=== PATIENT | female | born 1970 | race Caucasian/White ===

== ENCOUNTER 2017-05-12 12:39 | Emergency (ER) | payer OTHER | END 2017-05-12 15:12 | disposition home or self-care (01) | LOC: M ED 12:39 | DX: L50.9 Urticaria, unspecified (principal); T78.40XA Allergy, unspecified, initial encounter; F17.200 Nicotine dependence, unspecified, uncomplicated; Z79.899 Other long term (current) drug therapy; Z88.1 Allergy status to other antibiotic agents; Z88.2 Allergy status to sulfonamides | CPT/HCPCS: 99283 ==

== ENCOUNTER 2017-05-14 02:34 | Inpatient (IN) | payer OTHER ==
[2017-05-14 04:24] LABS: HEMATOCRIT 41.2 % (36.0-47.0); HEMOGLOBIN 14.1 g/dl (12.0-16.0); MEAN CORPUSCULAR HEMOGLOBIN 32.8 pg (27.0-33.0); MEAN CORPUSCULAR HGB CONC 34.2 g/dl (32.0-36.5); MEAN CORPUSCULAR VOLUME 95.8 fl (80.0-96.0); PLATELET COUNT, AUTOMATED 251 10^3/uL (150-450); RED CELL DISTRIBUTION WIDTH 12.1 % (11.5-14.5); WHITE BLOOD COUNT 10.1 10^3/uL (4.0-10.0)
[2017-05-14 04:53] LABS: CONTROL LINE HCG INT CTR LINE PRESENT; HCG, SERUM QUALITATIVE NEGATIVE (NEGATIVE)
[2017-05-14 04:58] LABS: AMPHETAMINES LEVEL URINE NEGATIVE (NEGATIVE); BARBITURATES URINE NEGATIVE (NEGATIVE); BENZODIAZEPINES URINE NEGATIVE (NEGATIVE); CANNABINOIDS URINE NEGATIVE (NEGATIVE); COCAINE METABOLITE URINE NEGATIVE (NEGATIVE); METHADONE URINE NEGATIVE (NEGATIVE); OPIATES URINE POSITIVE (NEGATIVE); PHENCYCLIDINE URINE NEGATIVE (NEGATIVE)
[2017-05-14 05:10] LABS: ACETAMINOPHEN LEVEL < 2.0 UG/ML (10.0-30.0); ALBUMIN 4.1 GM/DL (3.2-5.2); ALBUMIN/GLOBULIN RATIO 1.32 (1.00-1.93); ALKALINE PHOSPHATASE 43 U/L (45-117); ALT/SGPT 31 U/L (12-78); ANION GAP 9 MEQ/L (8-16); AST/SGOT 20 U/L (7-37); BILIRUBIN,DIRECT < 0.1 MG/DL (0.0-0.2); BILIRUBIN,TOTAL 0.2 MG/DL (0.2-1.0); BLOOD UREA NITROGEN 14 MG/DL (7-18); CALCIUM LEVEL 8.4 MG/DL (8.5-10.1); CARBON DIOXIDE LEVEL 29 MEQ/L (21-32); CHLORIDE LEVEL 107 MEQ/L (98-107); CREATININE FOR GFR 0.68 MG/DL (0.55-1.02); ETHYL ALCOHOL (ETHANOL) 0.163 % (0.000-0.010); GLOMERULAR FILTRATION RATE > 60.0 (>58); GLUCOSE, FASTING 99 MG/DL (70-100); POTASSIUM SERUM 3.2 MEQ/L (3.5-5.1); SALICYLATE LEVEL < 1.7 MG/DL (5.0-30.0); SODIUM LEVEL 145 MEQ/L (136-145); THYROID STIMULATING HORMONE 0.719 uIU/ML (0.358-3.740); TOTAL PROTEIN 7.2 GM/DL (6.4-8.2)
[2017-05-14] MEDS: POTASSIUM CHLORIDE 10 MEQ SR TABLET PO (05:26)
[2017-05-14] MEDS: AMOXICILLIN 500 MG CAP PO (05:44)
[2017-05-14] MEDS: NORCO, ANEXSIA 5/325MG TABLET (HYDROcodone/ACETAMINOPHEN) PO (05:45)
[2017-05-14] MEDS ORDERED: predniSONE 20 MG TAB PO (09:00)
[2017-05-14] MEDS ORDERED: IBUPROFEN 400 MG TAB PO (12:15)
[2017-05-14] MEDS ORDERED: MAALOX 30 ML SUSP *UDC PO (12:15)
[2017-05-14] MEDS ORDERED: traZODone 50 MG TAB PO ×2 (12:15→13:15)
[2017-05-14] MEDS ORDERED: ESCITALOPRAM OXALATE 5MG TABLET (LEXAPRO) PO (12:30)
[2017-05-14] MEDS: predniSONE 20 MG TAB PO (14:35)
[2017-05-14] MEDS: NICOTINE 21MG/24HR 1 EA TRANSDERMAL TD (14:35)
[2017-05-14] MEDS: AMOXICILLIN 250 MG CAP PO ×2 (14:35→21:53)
[2017-05-14] MEDS: FOLIC ACID 1 MG TAB PO (14:35)
[2017-05-14] MEDS: THIAMINE 100 MG TAB PO ×2 (14:35→21:53)
[2017-05-14] MEDS: MULTIVITAMINS/MINERALS THERAP 1 TAB PO (14:35)
[2017-05-14] MEDS: LORazepam 2 MG TAB PO (17:57)
[2017-05-14] MEDS: RAMELTEON 8 MG TAB (ROZEREM) PO (21:52)
[2017-05-14] MEDS: PRAZOSIN 1 MG CAP PO (21:53)
[2017-05-15] MEDS: ESCITALOPRAM OXALATE 5MG TABLET (LEXAPRO) PO (09:17)
[2017-05-15] MEDS: FOLIC ACID 1 MG TAB PO (09:17)
[2017-05-15] MEDS: predniSONE 20 MG TAB PO (09:17)
[2017-05-15] MEDS: NICOTINE 21MG/24HR 1 EA TRANSDERMAL TD (09:17)
[2017-05-15] MEDS: THIAMINE 100 MG TAB PO ×2 (09:17→20:06)
[2017-05-15] MEDS: AMOXICILLIN 250 MG CAP PO ×2 (09:17→20:05)
[2017-05-15] MEDS: MULTIVITAMINS/MINERALS THERAP 1 TAB PO (09:17)
[2017-05-15] MEDS: EUCERIN 120GM CREAM TOP (10:06)
[2017-05-15] MEDS: diphenhydrAMINE CREAM 30GM TOP (10:07)
[2017-05-15] MEDS: CETIRIZINE (ZyrTEC) 10 MG TAB PO (10:07)
[2017-05-15] MEDS: CHLORHEXIDINE ORAL RINSE 0.12%/15ML 120ML BOTTLE SSP ×3 (10:07→20:05)
[2017-05-15] MEDS: LORazepam 2 MG TAB PO (14:21)
[2017-05-15] MEDS: RAMELTEON 8 MG TAB (ROZEREM) PO (20:05)
[2017-05-15] MEDS: PRAZOSIN 1 MG CAP PO (20:05)
[2017-05-15] MEDS: traZODone 50 MG TAB PO (20:06)
[2017-05-16 07:00] LABS: HEMOGLOBIN 14.4 g/dl (12.0-16.0); MEAN CORPUSCULAR HEMOGLOBIN 32.6 pg (27.0-33.0); MEAN CORPUSCULAR HGB CONC 34.3 g/dl (32.0-36.5); PLATELET COUNT, AUTOMATED 282 10^3/uL (150-450); RED BLOOD COUNT 4.42 10^6/uL (4.00-5.40); RED CELL DISTRIBUTION WIDTH 11.9 % (11.5-14.5)
[2017-05-16 07:18] LABS: ANION GAP 7 MEQ/L (8-16); BLOOD UREA NITROGEN 20 MG/DL (7-18); CALCIUM LEVEL 9.5 MG/DL (8.5-10.1); CARBON DIOXIDE LEVEL 30 MEQ/L (21-32); CHLORIDE LEVEL 104 MEQ/L (98-107); CREATININE FOR GFR 0.74 MG/DL (0.55-1.02); GLOMERULAR FILTRATION RATE > 60.0 (>58); GLUCOSE, FASTING 90 MG/DL (70-100); POTASSIUM SERUM 3.9 MEQ/L (3.5-5.1); SODIUM LEVEL 141 MEQ/L (136-145)
[2017-05-16] MEDS: CETIRIZINE (ZyrTEC) 10 MG TAB PO (08:17)
[2017-05-16] MEDS: AMOXICILLIN 250 MG CAP PO ×2 (08:17→21:05)
[2017-05-16] MEDS: predniSONE 20 MG TAB PO (08:17)
[2017-05-16] MEDS: THIAMINE 100 MG TAB PO ×2 (08:17→21:05)
[2017-05-16] MEDS: MULTIVITAMINS/MINERALS THERAP 1 TAB PO (08:17)
[2017-05-16] MEDS: ESCITALOPRAM OXALATE 5MG TABLET (LEXAPRO) PO (08:17)
[2017-05-16] MEDS: FOLIC ACID 1 MG TAB PO (08:17)
[2017-05-16] MEDS: CHLORHEXIDINE ORAL RINSE 0.12%/15ML 120ML BOTTLE SSP ×3 (08:18→21:06)
[2017-05-16] MEDS: NICOTINE 21MG/24HR 1 EA TRANSDERMAL TD (08:18)
[2017-05-16] MEDS: EUCERIN 120GM CREAM TOP (08:21)
[2017-05-16] MEDS: MOM 30ML SUSPENSION UDC PO (09:49)
[2017-05-16] MEDS: FLUCONAZOLE 50MG TABLET PO (13:53)
[2017-05-16] MEDS: OLANZapine ORAL DISINTEGRATING TAB 5MG PO (15:40)
[2017-05-16] MEDS: RAMELTEON 8 MG TAB (ROZEREM) PO (21:05)
[2017-05-16] MEDS: traZODone 50 MG TAB PO (21:05)
[2017-05-16] MEDS: PRAZOSIN 1 MG CAP PO (21:06)
[2017-05-17] MEDS: MULTIVITAMINS/MINERALS THERAP 1 TAB PO (08:07)
[2017-05-17] MEDS: FOLIC ACID 1 MG TAB PO (08:07)
[2017-05-17] MEDS: CETIRIZINE (ZyrTEC) 10 MG TAB PO (08:07)
[2017-05-17] MEDS: AMOXICILLIN 250 MG CAP PO ×2 (08:07→21:19)
[2017-05-17] MEDS: ESCITALOPRAM OXALATE 5MG TABLET (LEXAPRO) PO (08:07)
[2017-05-17] MEDS: EUCERIN 120GM CREAM TOP (08:07)
[2017-05-17] MEDS: OLANZapine ORAL DISINTEGRATING TAB 5MG PO ×3 (08:07→21:20)
[2017-05-17] MEDS: predniSONE 20 MG TAB PO (08:07)
[2017-05-17] MEDS: NICOTINE 21MG/24HR 1 EA TRANSDERMAL TD (08:07)
[2017-05-17] MEDS: CHLORHEXIDINE ORAL RINSE 0.12%/15ML 120ML BOTTLE SSP ×3 (08:07→21:19)
[2017-05-17] MEDS ORDERED: predniSONE 10 MG TAB PO (09:00)
[2017-05-17] MEDS: MOM 30ML SUSPENSION UDC PO (17:33)
[2017-05-17] MEDS: RAMELTEON 8 MG TAB (ROZEREM) PO (21:19)
[2017-05-17] MEDS: traZODone 100 MG TAB PO (21:19)
[2017-05-17] MEDS: PRAZOSIN 1 MG CAP PO (21:19)
[2017-05-18] MEDS: AMOXICILLIN 250 MG CAP PO (08:19)
[2017-05-18] MEDS: CHLORHEXIDINE ORAL RINSE 0.12%/15ML 120ML BOTTLE SSP (08:19)
[2017-05-18] MEDS: FOLIC ACID 1 MG TAB PO (08:19)
[2017-05-18] MEDS: CETIRIZINE (ZyrTEC) 10 MG TAB PO (08:19)
[2017-05-18] MEDS: EUCERIN 120GM CREAM TOP (08:19)
[2017-05-18] MEDS: predniSONE 20 MG TAB PO (08:19)
[2017-05-18] MEDS: MULTIVITAMINS/MINERALS THERAP 1 TAB PO (08:19)
[2017-05-18] MEDS: ESCITALOPRAM OXALATE 5MG TABLET (LEXAPRO) PO (08:19)
[2017-05-18] MEDS: NICOTINE 21MG/24HR 1 EA TRANSDERMAL TD (08:23)
[2017-05-18] MEDS: INFLUENZA QUADRIVALENT PF VACCINE 0.5ML SYRINGE (90686) IM (10:47)
[2017-05-18] MEDS: MOM 30ML SUSPENSION UDC PO (12:03)
== END 2017-05-18 13:49 | disposition home or self-care (01) | DRG 754 ==
LOC: M ED 02:34 → M ED INP 09:39 → M PSY 10:40
DX: F32.9 Major depressive disorder, single episode, unspecified (principal); R45.851 Suicidal ideations; F10.10 Alcohol abuse, uncomplicated; F41.9 Anxiety disorder, unspecified; F43.10 Post-traumatic stress disorder, unspecified; F51.5 Nightmare disorder; Z91.411 Personal history of adult psychological abuse; Z88.2 Allergy status to sulfonamides; Z88.8 Allergy status to other drugs, medicaments and biological substances; F17.200 Nicotine dependence, unspecified, uncomplicated; K04.7 Periapical abscess without sinus; D72.829 Elevated white blood cell count, unspecified; E87.6 Hypokalemia

== ENCOUNTER 2017-11-13 06:55 | Emergency (ER) | payer OTHER ==
[2017-11-13] MEDS: LIDOCAINE W/EPINEPHRINE 1% 20ML VIAL SC (08:00)
[2017-11-13] MEDS: PERCOCET 5MG/325MG TAB PO (08:33)
== END 2017-11-13 09:28 | disposition home or self-care (01) ==
LOC: M ED 06:55
DX: S81.811A Laceration without foreign body, right lower leg, initial encounter (principal); Y04.8XXA Assault by other bodily force, initial encounter; Y92.099 Unspecified place in other non-institutional residence as the place of occurrence of the external cause; Y93.9 Activity, unspecified; Y99.9 Unspecified external cause status; F43.10 Post-traumatic stress disorder, unspecified; F41.9 Anxiety disorder, unspecified; F32.9 Major depressive disorder, single episode, unspecified; Z72.0 Tobacco use; Z79.899 Other long term (current) drug therapy; Z88.1 Allergy status to other antibiotic agents; Z88.2 Allergy status to sulfonamides
CPT/HCPCS: 73590

== ENCOUNTER 2018-10-20 23:11 | Emergency (ER) | payer OTHER ==
[~2018-10-20] VITALS: Ht 167.6 cm; Wt 54.5 kg
[~2018-10-20 23:11] MED LIST: ALLE180T33 PO; AMOX500C PO; AMOX500T PO; LEXA1TAB PO; MINI1CAP PO; NORC1TAB5 PO; OLAN5TAB PO; OLAN5ZYD PO; PRED20TA PO; ROZE8TAB16 PO; TRAZ-163 PO; TRAZ10TA PO
[2018-10-20 23:45] VITALS: BP 161/60
== END 2018-10-21 00:48 | disposition left against medical advice (07) ==
LOC: M ED 23:11
DX: Z53.21 Procedure and treatment not carried out due to patient leaving prior to being seen by health care provider (principal)

== ENCOUNTER 2018-10-26 20:12 | Inpatient (IN) | payer MEDICAID, OTHER ==
[~2018-10-26] VITALS: Ht 165.1 cm; Wt 56.2 kg
[2018-10-26 20:56] LABS: HEMATOCRIT 43.1 % (36.0-47.0); HEMOGLOBIN 14.7 g/dl (12.0-15.5); MEAN CORPUSCULAR HEMOGLOBIN 33.1 pg (27.0-33.0); MEAN CORPUSCULAR HGB CONC 34.1 g/dl (32.0-36.5); MEAN CORPUSCULAR VOLUME 97.1 fl (80.0-96.0); PLATELET COUNT, AUTOMATED 282 10^3/uL (150-450); RED BLOOD COUNT 4.44 10^6/uL (4.00-5.40); WHITE BLOOD COUNT 11.3 10^3/uL (4.0-10.0)
[2018-10-26 21:10] LABS: AMPHETAMINES LEVEL URINE NEGATIVE (NEGATIVE); BARBITURATES URINE NEGATIVE (NEGATIVE); BENZODIAZEPINES URINE NEGATIVE (NEGATIVE); CANNABINOIDS URINE POSITIVE (NEGATIVE); COCAINE METABOLITE URINE NEGATIVE (NEGATIVE); METHADONE URINE NEGATIVE (NEGATIVE); OPIATES URINE NEGATIVE (NEGATIVE); PHENCYCLIDINE URINE NEGATIVE (NEGATIVE)
[2018-10-26 21:22] LABS: ACETAMINOPHEN LEVEL < 2.0 UG/ML (10.0-30.0); ALBUMIN 4.2 GM/DL (3.2-5.2); ALT/SGPT 65 U/L (12-78); BILIRUBIN,DIRECT 0.1 MG/DL (0.0-0.2); BILIRUBIN,TOTAL 0.3 MG/DL (0.2-1.0); BLOOD UREA NITROGEN 17 MG/DL (7-18); CALCIUM LEVEL 8.6 MG/DL (8.5-10.1); CARBON DIOXIDE LEVEL 26 MEQ/L (21-32); CHLORIDE LEVEL 107 MEQ/L (98-107); CREATININE FOR GFR 0.75 MG/DL (0.55-1.30); GLOMERULAR FILTRATION RATE > 60.0 (>58); GLUCOSE, FASTING 107 MG/DL (70-100); POTASSIUM SERUM 4.2 MEQ/L (3.5-5.1); SALICYLATE LEVEL 1.8 MG/DL (5.0-30.0); SODIUM LEVEL 142 MEQ/L (136-145); THYROID STIMULATING HORMONE 0.782 uIU/ML (0.358-3.740); TOTAL PROTEIN 7.5 GM/DL (6.4-8.2)
[2018-10-26] MEDS: LORazepam 2 MG TAB PO PRN (22:21)
[2018-10-27] MEDS: LORazepam 2 MG TAB PO PRN ×3 (07:33→22:17)
[2018-10-27 08:06] LABS: HCG, SERUM QUALITATIVE NEGATIVE (NEGATIVE)
[2018-10-27 08:20] LABS: HCG, SERUM QUANTITATIVE < 1.0 MIU/ML
[2018-10-27] MEDS: THIAMINE 100 MG TAB PO SCH ×2 (09:00→21:26)
[2018-10-27] MEDS ORDERED: NICOTINE 14 MG/24 HR TRANSDERMAL TD PRN (13:45)
[2018-10-27] MEDS ORDERED: MAALOX 30 ML SUSP *UDC PO PRN (13:45)
[2018-10-27] MEDS: ACETAMINOPHEN TAB 650MG DOSE (2X325MG) PO PRN (14:49)
[2018-10-27 15:03] VITALS: BP 142/96
[2018-10-27 15:44] VITALS: BP 142/96
[2018-10-27] MEDS: NICOTINE 21MG/24HR 1 EA TRANSDERMAL TD SCH (16:31)
[2018-10-27 22:13] VITALS: BP 146/97
[2018-10-27] MEDS: traZODone 50 MG TAB PO PRN (22:48)
[2018-10-28 06:43] VITALS: BP 127/75
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
[2018-10-28] MEDS ORDERED: FOLIC ACID 1 MG TAB PO SCH (09:00)
[2018-10-28] MEDS ORDERED: MULTIVITAMINS/MINERALS THERAP 1 TAB PO SCH (09:00)
[2018-10-28 09:35] VITALS: BP 150/102
[2018-10-28] MEDS: LORazepam 2 MG TAB PO PRN (09:44)
[2018-10-28] MEDS: AUGMENTIN 875 MG TAB PO SCH ×2 (09:44→19:31)
[2018-10-28] MEDS: NICOTINE 21MG/24HR 1 EA TRANSDERMAL TD SCH (09:45)
[2018-10-28] MEDS: IBUPROFEN 600 MG TAB PO PRN ×2 (09:46→19:31)
[2018-10-28] MEDS: THIAMINE 100 MG TAB PO SCH (09:47)
[2018-10-28 12:12] VITALS: BP 132/90
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
[2018-10-28] MEDS ORDERED: ESCITALOPRAM OXALATE 10 MG TAB (LEXAPRO) PO ONE (14:15)
[2018-10-28 18:00] VITALS: BP 145/95
[2018-10-28] MEDS: hydrOXYzine 50 MG TAB PO PRN (20:21)
[2018-10-28] MEDS: QUEtiapine FUMARATE 50 MG TAB PO SCH (21:14)
[2018-10-29 07:07] VITALS: BP 113/69
[2018-10-29] MEDS: ESCITALOPRAM OXALATE 10 MG TAB (LEXAPRO) PO SCH (08:35)
[2018-10-29] MEDS: AUGMENTIN 875 MG TAB PO SCH ×2 (08:35→21:26)
[2018-10-29] MEDS: IBUPROFEN 600 MG TAB PO PRN ×2 (08:36→19:56)
[2018-10-29] MEDS: NICOTINE 21MG/24HR 1 EA TRANSDERMAL TD SCH (08:38)
--- NOTE | 2018-10-29 09:18 | IPNPDOC ---
Text Note Date of Service The patient was seen on 10/29/18. NOTE Subjective: Feels much better today in a lot of ways except for right upper tooth and abscess. Still painful. Denies chills, fever, denies chest pain, shortness of breath, denies palpitations. Objective GENERAL: NAD SKIN : Warm, dry with multiple areas of contusion and discoloration. Right lateral thigh bite mcginnis HEENT: Atraumatic, normocephalic, PERRL, right upper gum erythema and swelling with tenderness CARDIOVASCULAR: Regular rate and rhythm, S1S2, no JVD, no edema, distal pulses + and palpable RESP: CTAB, no accessory muscle use noted ABDOMEN: BS+ non distended non tender MS: no joint deformities NEURO: Alert and oriented x 3, CN2-12 grossly intact PSYCH: no anxiety or agitation, appropriate mood and affect. ASSESSMENT/PLAN Right lateral thigh bite. Tooth abscess Nicotine dependence Dysuria Alcohol abuse Suicidal ideation Continue antibiotic therapy for coverage for tooth abscess and bite. Urinalysis is abnormal and culture is pending Antibiotic adjustment based on findings of urine culture. Management of suicidal ideation and alcohol abuse by primary team Will need referral to dentist at discharge for further evaluation and management. VS,Fishbone, I+O VS, Fishbone, I+O Vital Signs Date Time Temp Pulse Resp B/P (MAP) Pulse Ox O2 Delivery O2 Flow Rate FiO2 10/29/18 07:07 98.0 70 12 113/69 (84) 10/27/18 15:03 97 10/27/18 14:36 Room Air LUNA NEGRON Oct 29, 2018 09:18
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
[2018-10-29] MEDS: MOM 30ML SUSPENSION UDC PO PRN (11:40)
[2018-10-29] MEDS: ACETAMINOPHEN TAB 650MG DOSE (2X325MG) PO PRN (12:57)
[2018-10-29 18:16] VITALS: BP 137/99
[2018-10-29] MEDS: QUEtiapine FUMARATE 50 MG TAB PO SCH (21:26)
[2018-10-29] MEDS: hydrOXYzine 50 MG TAB PO PRN (21:27)
[2018-10-30] MEDS: IBUPROFEN 600 MG TAB PO PRN ×2 (06:25→20:40)
[2018-10-30 06:58] VITALS: BP 119/62
[2018-10-30] MEDS: ESCITALOPRAM OXALATE 10 MG TAB (LEXAPRO) PO SCH (08:32)
[2018-10-30] MEDS: AUGMENTIN 875 MG TAB PO SCH ×2 (08:32→20:40)
[2018-10-30] MEDS: NICOTINE 21MG/24HR 1 EA TRANSDERMAL TD SCH (08:33)
[2018-10-30 09:52] VITALS: BP 119/62
[2018-10-30] MEDS: hydrOXYzine 50 MG TAB PO PRN ×3 (10:05→22:19)
--- NOTE | 2018-10-30 11:55 | MHIPNPDOC ---
[facility] Progress Note Progress Note Inpatient Progress Note Mauro Douglas Age 48 Female Date of : 1970 Date of Service: 10/30/2018 History of Present Illness The patient, a 48-year-old woman with a history of depression and PTSD with multiple suicide attempts and admissions to inpatient psych for suicidal thou ghts, presented to the ED with suicidal thoughts and a plan to overdose. She had been intoxicated prior to that with significant alcohol and cannabis use. She had been fairly hopeless in the emergency room with very few psychosocial supports. Interval History The patient is met with today. She is primarily seen by Dr. Sebastian during the week. She describes that she is improving and is less depressed today. She did describe that she knows the Seroquel was not as effective as it was before and requested an increased dose. No significant events overnight. Patient has been engaging with other patients on the unit. Review Of Systems Denies any side effects from her medications. She reports improvement in her mood and hopelessness. Psychotherapy None on this visit. Vital Signs Reviewed. Mental Status Examination General: Dressed in hospital gown Speech: Spontaneous and fluid Thought processes: Linear and logical MSK: Smooth and coordinated gait, no signs of tremors or involuntary orofacial movements Thought content: Pessimistic thoughts Abstract reasoning, and computation: Intact Description of associations: Intact Description of abnormal or psychotic thoughts: Denies any suicidal or homicidal ideation. Denies any auditory or visual hallucinations. Does not appear to be responding to internal stimuli. Does not appear to be endorsing any bizarre or paranoid ideation. Judgment: Poor Insight: Poor Orientation: Alert and orientated 3 Cognition: Grossly normal Recent and remote memory: Intact Attention span and concentration: Intact Fund of knowledge: Adequate Mood: "okay" Affect: Dysthymic with constricted range Diagnoses Major depressive disorder, recurrent, severe without psychosis. PTSD, chronic. Alcohol use disorder, severe. Cannabis use disorder, severe. Unspecified personality disorder, rule out borderline. Assessment and Plan The patient, a 48-year-old woman with a history of fairly severe depression and trauma, presents to [facility] in the setting of multiple psychosocial stressors and substance use. She has been making some mild improvements on the unit. Continue Lexapro 10 mg daily, increase Seroquel to 100 mg nightly and continue Atarax 50 mg as needed for anxiety. Disposition The patient will need further inpatient admission in order to assure that her fairly severe depressive and trauma symptoms are better controlled and that her outpatient situation is stabilized as she has a fairly high chance of recurrence if she were to be discharged at this time. Time Spent 15 minutes [id number] Thursday Vital Signs Vital Signs Date Time Temp Pulse Resp B/P (MAP) Pulse Ox O2 Delivery O2 Flow Rate FiO2 10/30/18 09:52 73 119/62 10/30/18 06:58 97.7 14 10/29/18 10:52 Room Air 10/27/18 15:03 97 Current Medications Current Medications Acetaminophen (Tylenol Tab) 650 mg Q6HP PRN PO HEADACHE or DISCOMFORT Last administered on 10/29/18at 12:57; Start 10/27/18 at 13:45 Al Hydrox/Mg Hydrox/Simethicone (Mylanta) 30 ml Q4HP PRN PO HEARTBURN/INDIGESTION; Start 10/27/18 at 13:45 Amoxicillin/ Clavulanate Potassium (Augmentin) 875 mg BID PO Last administered on 10/30/18at 08:32; Start 10/28/18 at 09:00 Escitalopram Oxalate (Lexapro) 10 mg DAILY PO Last administered on 10/30/18at 08:32; Start 10/29/18 at 09:00 Folic Acid (Folic Acid) 1 mg DAILY PO Last administered on 10/28/18at 09:44; Start 10/28/18 at 09:00; Stop 10/28/18 at 14:10; Status DC Home Med (Med Rec Complete!) ASDIRECTED XX ; Start 10/27/18 at 11:00; Stop 10/27/18 at 11:00; Status DC Hydroxyzine HCl (Atarax) 50 mg Q6HP PRN PO ANXIETY/AGITATION Last administered on 10/30/18at 10:05; Start 10/28/18 at 14:15 Ibuprofen (Advil) 600 mg Q6HP PRN PO MODERATE PAIN (PS 5-7) Last administered on 10/30/18at 06:25; Start 10/28/18 at 09:00 Lorazepam (Ativan) 2 mg ASDIRECTED PRN PO SEE PROTOCOL Last administered on 10/28/18at 09:44; Start 10/27/18 at 13:45; Stop 10/28/18 at 14:10; Status DC Lorazepam (Ativan) 2 mg ASDIRECTED PRN PO SEE PROTOCOL Last administered on 10/27/18at 14:40; Start 10/26/18 at 22:00; Stop 10/27/18 at 16:23; Status DC Magnesium Hydroxide (Milk Of Magnesia) 30 ml DAILYPRN PRN PO CONSTIPATION Last administered on 10/29/18at 11:40; Start 10/27/18 at 13:45 Multivitamins (Theragram-M) 1 tab DAILY PO Last administered on 10/28/18at 09:44; Start 10/28/18 at 09:00; Stop 10/28/18 at 14:10; Status DC Nicotine (Nicoderm Cq 14mg) 1 patch DAILY PRN TD smoking cessation; Start 10/27/18 at 13:45 Nicotine (Nicoderm Cq 21mg) 1 patch DAILY TD Last administered on 10/29/18at 08:38; Start 10/27/18 at 09:00; Stop 10/30/18 at 11:46; Status DC Quetiapine Fumarate (SEROquel) 50 mg QHS PO Last administered on 10/29/18at 21:26; Start 10/28/18 at 21:00 Thiamine HCl (Thiamine HCl) 100 mg BID PO Last administered on 10/28/18at 09:47; Start 10/27/18 at 09:00; Stop 10/28/18 at 14:10; Status DC Trazodone HCl (Desyrel) 50 mg QHSP PRN PO INSOMNIA Last administered on 10/27/18at 22:48; Start 10/27/18 at 13:45 Allergies Coded Allergies: Sulfa (Sulfonamide Antibiotics) (Verified Allergy, Unknown, RASH, 10/26/18) clindamycin (Verified Allergy, Unknown, RASH, 10/26/18) GEORGETTE SHELBY DO Oct 30, 2018 11:55
[2018-10-30] MEDS: LACTOBACILLUS ACIDOPHILUS CAP (BACID) PO SCH (12:41)
[2018-10-30 18:00] VITALS: BP 136/90
--- NOTE | 2018-10-30 20:54 | IPNPDOC ---
Text Note Date of Service The patient was seen on 10/30/18. NOTE Subjective: Today patient denies significant pain to her right jaw. She does not indicate any other distress. Objective GENERAL: Fully independently ambulatory, cooperative with exam SKIN : Warm, dry with multiple areas of contusion and discoloration. Right l ateral thigh bite mcginnis HEENT: Atraumatic, normocephalic, PERRL, right upper gum mucosal swelling, right periorbital ecchymoses CARDIOVASCULAR: Regular rate and rhythm with a normal S1 and S2 RESP: Clear to auscultation ABDOMEN: Soft, nontender, nondistended, normal bowel tones MS: no joint deformities, no other signs of injury SKIN: Has area of contusion and discoloration to the right lower side of her face and jaw tracking down her neck, there are also bite mcginnis to her right lateral thigh, there are no signs of infection NEURO: Alert and oriented x 3, CN2-12 grossly intact PSYCH: no anxiety or agitation, appropriate mood and affect. ASSESSMENT/PLAN: 1. Right lateral thigh bite--the patient is on appropriate antibiotic therapy with Augmentin. 2. Tooth abscess--again, the patient is Augmentin and this will supply adequate coverage as well until she receives dental care. 3. Urinary tract infection--urinalysis obtained was negative for leukocyte esterase, nitrates, white cells or bacteria. Consequently, it did not reflex to culture. At discharge, patient will need referral to dentist regarding her tooth abscess. She'll also need a prescription for an additional 6 days of Augmentin at her anticipated discharge on Thursday. The patient is otherwise medically stable. We will sign off for now. If there are any other acute medical needs, please do not hesitate to reconsult us. VS,Fishbone, I+O VS, Fishbone, I+O Vital Signs Date Time Temp Pulse Resp B/P (MAP) Pulse Ox O2 Delivery O2 Flow Rate FiO2 10/30/18 18:00 97.9 96 16 136/90 (105) 10/29/18 10:52 Room Air 10/27/18 15:03 97 BELLE STORY MD Oct 30, 2018 20:54
[2018-10-30] MEDS: QUEtiapine FUMARATE 100 MG TAB PO SCH (22:19)
[2018-10-30] MEDS: MOM 30ML SUSPENSION UDC PO PRN (22:44)
[2018-10-31] MEDS: IBUPROFEN 600 MG TAB PO PRN ×2 (06:42→20:05)
[2018-10-31 07:07] VITALS: BP 140/81
[2018-10-31] MEDS: ESCITALOPRAM OXALATE 10 MG TAB (LEXAPRO) PO SCH (08:03)
[2018-10-31] MEDS: LACTOBACILLUS ACIDOPHILUS CAP (BACID) PO SCH (08:03)
[2018-10-31] MEDS: AUGMENTIN 875 MG TAB PO SCH ×2 (08:03→20:05)
[2018-10-31] MEDS: ACETAMINOPHEN TAB 650MG DOSE (2X325MG) PO PRN (11:20)
[2018-10-31] MEDS: hydrOXYzine 50 MG TAB PO PRN (13:20)
[2018-10-31 13:22] VITALS: BP 138/84
--- NOTE | 2018-10-31 17:37 | MHIPNPDOC ---
[facility] Progress Note Progress Note Inpatient Progress Note Mauro Douglas Age 48 Female Date of : 1970 Date of Service: 10/31/2018 History of Present Illness The patient, a 48-year-old woman with a history of depression and PTSD with multiple suicide attempts and admissions to inpatient psych for suicidal thoug hts, presented to the ED with suicidal thoughts and a plan to overdose. She had been intoxicated prior to that with significant alcohol and cannabis use. She had been fairly hopeless in the emergency room with very few psychosocial supports. Interval History The patient is met with today where she describes that she has been doing well, and that she has been engaging in groups. She describes that she is feeling much less hopeless and more focused on the future. She describes she was told by Dr. Sebastian that she would be discharged on Thursday. She has done well over the weekend with no behavioral concerns and no reported safety concerns were laid. She has been attending groups fairly regularly. Review Of Systems Denies current hopelessness. Reports continued insomnia that is resistant to the Seroquel. Denies any side effects from medications such as tremors, headache or GI upset. Denies dry mouth. Psychotherapy None on this visit. Vital Signs Reviewed. Mental Status Examination General: Well dressed with good hygiene Speech: Spontaneous and fluid Thought processes: Linear and logical MSK: Smooth and coordinated gait, no signs of tremors or involuntary orofacial movements Thought content: Future orientated Abstract reasoning, and computation: Intact Description of associations: Intact Description of abnormal or psychotic thoughts: Denies any suicidal or homicidal ideation. Denies any auditory or visual hallucinations. Does not appear to be responding to internal stimuli. Does not appear to be endorsing any bizarre or paranoid ideation. Judgment: fair Insight: fair Orientation: Alert and orientated 3 Cognition: Grossly normal Recent and remote memory: Intact Attention span and concentration: Intact Fund of knowledge: Adequate Mood: "okay" Affect: Euthymic with a full range Diagnoses Major depressive disorder, recurrent, severe without psychosis. PTSD, chronic. Alcohol use disorder, severe. Cannabis use disorder, severe. Unspecified personality disorder, rule out borderline. Assessment and Plan The patient, a 48 year old woman, is met with today. She describes that she was told by Dr. Sebastian that she would be potentially discharged on Thursday and she reports being hopeful about this. She has done well this weekend, attending groups fairly frequently and has been social on the unit. Continue Seroquel 100 mg nightly, Lexapro 10 mg daily. Disposition The patient will need a further inpatient admission in order to plan for a safe and effective discharge. Time Spent Thursday Vital Signs Vital Signs Date Time Temp Pulse Resp B/P (MAP) Pulse Ox O2 Delivery O2 Flow Rate FiO2 10/31/18 13:22 88 138/84 10/31/18 07:07 97.2 12 10/29/18 10:52 Room Air 10/27/18 15:03 97 Current Medications Current Medications Acetaminophen (Tylenol Tab) 650 mg Q6HP PRN PO HEADACHE or DISCOMFORT Last administered on 10/31/18at 11:20; Start 10/27/18 at 13:45 Al Hydrox/Mg Hydrox/Simethicone (Mylanta) 30 ml Q4HP PRN PO HEARTBURN/INDIGESTION; Start 10/27/18 at 13:45 Amoxicillin/ Clavulanate Potassium (Augmentin) 875 mg BID PO Last administered on 10/31/18at 08:03; Start 10/28/18 at 09:00 Escitalopram Oxalate (Lexapro) 10 mg DAILY PO Last administered on 10/31/18at 08:03; Start 10/29/18 at 09:00 Folic Acid (Folic Acid) 1 mg DAILY PO Last administered on 10/28/18at 09:44; Start 10/28/18 at 09:00; Stop 10/28/18 at 14:10; Status DC Home Med (Med Rec Complete!) ASDIRECTED XX ; Start 10/27/18 at 11:00; Stop 10/27/18 at 11:00; Status DC Hydroxyzine HCl (Atarax) 50 mg Q6HP PRN PO ANXIETY/AGITATION Last administered on 10/31/18at 13:20; Start 10/28/18 at 14:15 Ibuprofen (Advil) 600 mg Q6HP PRN PO MODERATE PAIN (PS 5-7) Last administered on 10/31/18at 06:42; Start 10/28/18 at 09:00 Lactobacillus Acidophilus (Bacid) 1 ea DAILY PO Last administered on 10/31/18at 08:03; Start 10/30/18 at 09:00 Lorazepam (Ativan) 2 mg ASDIRECTED PRN PO SEE PROTOCOL Last administered on 10/28/18 09:44; Start 10/27/18 at 13:45; Stop 10/28/18 at 14:10; Status DC Lorazepam (Ativan) 2 mg ASDIRECTED PRN PO SEE PROTOCOL Last administered on 10/27/18 14:40; Start 10/26/18 at 22:00; Stop 10/27/18 at 16:23; Status DC Magnesium Hydroxide (Milk Of Magnesia) 30 ml DAILYPRN PRN PO CONSTIPATION Last administered on 10/30/18at 22:44; Start 10/27/18 at 13:45 Multivitamins (Theragram-M) 1 tab DAILY PO Last administered on 10/28/18 09:44; Start 10/28/18 at 09:00; Stop 10/28/18 at 14:10; Status DC Nicotine (Nicoderm Cq 14mg) 1 patch DAILY PRN TD smoking cessation Last administered on 10/30/18 20:41; Start 10/27/18 at 13:45 Nicotine (Nicoderm Cq 21mg) 1 patch DAILY TD Last administered on 10/29/18 08:38; Start 10/27/18 at 09:00; Stop 10/30/18 at 11:46; Status DC Quetiapine Fumarate (SEROquel) 50 mg QHS PO Last administered on 10/29/18 21:26; Start 10/28/18 at 21:00; Stop 10/30/18 at 11:55; Status DC Quetiapine Fumarate (SEROquel) 100 mg QHS PO Last administered on 10/30/18at 22:19; Start 10/30/18 at 21:00 Thiamine HCl (Thiamine HCl) 100 mg BID PO Last administered on 10/28/18 09:47; Start 10/27/18 at 09:00; Stop 10/28/18 at 14:10; Status DC Trazodone HCl (Desyrel) 50 mg QHSP PRN PO INSOMNIA Last administered on 10/27/18at 22:48; Start 10/27/18 at 13:45 Allergies Coded Allergies: Sulfa (Sulfonamide Antibiotics) (Verified Allergy, Unknown, RASH, 10/26/18) clindamycin (Verified Allergy, Unknown, RASH, 10/26/18) GEORGETTE SHELBY DO Oct 31, 2018 17:37
[2018-10-31 18:00] VITALS: BP 129/78
[2018-10-31 21:42] VITALS: BP 129/78
[2018-10-31] MEDS: QUEtiapine FUMARATE 100 MG TAB PO SCH (21:45)
[2018-10-31] MEDS: traZODone 50 MG TAB PO PRN (21:45)
[2018-10-31] MEDS: MOM 30ML SUSPENSION UDC PO PRN (21:46)
[2018-11-01 07:06] VITALS: BP 110/64
[2018-11-01] MEDS: LACTOBACILLUS ACIDOPHILUS CAP (BACID) PO SCH (09:13)
[2018-11-01] MEDS: AUGMENTIN 875 MG TAB PO SCH (09:13)
[2018-11-01] MEDS: ESCITALOPRAM OXALATE 10 MG TAB (LEXAPRO) PO SCH (09:13)
[2018-11-01] MEDS ORDERED: QUET1TAB8 PO (09:15)
[2018-11-01] MEDS ORDERED: AMOX875T2 PO (09:15)
[2018-11-01] MEDS ORDERED: HYDRO50TAB PO (09:15)
[2018-11-01] MEDS ORDERED: ESCI10TA2 PO (09:15)
[2018-11-01] MEDS ORDERED: TRAZ-252 PO (09:16)
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
[2018-11-01] MEDS: IBUPROFEN 600 MG TAB PO PRN (14:08)
== END 2018-11-01 14:50 | disposition home or self-care (01) | DRG 751 ==
LOC: M ED 20:12 → M ED INP 10-27 13:38 → M PSY 10-27 14:54
PROVIDERS: ADMIT Psychiatry & Neurology Psychiatry; ATTEND Psychiatry & Neurology Psychiatry
DX: F33.2 Major depressive disorder, recurrent severe without psychotic features (principal); R45.851 Suicidal ideations; F43.10 Post-traumatic stress disorder, unspecified; F10.10 Alcohol abuse, uncomplicated; F12.90 Cannabis use, unspecified, uncomplicated; F60.3 Borderline personality disorder; Z88.2 Allergy status to sulfonamides; Z88.8 Allergy status to other drugs, medicaments and biological substances; K04.7 Periapical abscess without sinus; N39.0 Urinary tract infection, site not specified

== ENCOUNTER 2018-12-13 23:56 | Inpatient (IN) | payer MEDICAID, OTHER ==
[~2018-12-13] VITALS: Ht 165.1 cm; Wt 58.1 kg
[~2018-12-13 23:56] MED LIST changes: +AMOX875T2 PO; +ESCI10TA2 PO; +HYDR1TAB33 PO; +QUET1TAB8 PO; +TRAZ-252 PO
[2018-12-14] MEDS ORDERED: ACETAMINOPHEN TAB 650MG DOSE (2X325MG) PO ONE (09:00)
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
[2018-12-14] MEDS ORDERED: QUET1TAB8 PO (12:59)
[2018-12-14] MEDS ORDERED: ESCI10TA2 PO (12:59)
[2018-12-14] MEDS ORDERED: TRAZ-252 PO (12:59)
[2018-12-14] MEDS ORDERED: HYDR1TAB33 PO ×2 (12:59)
[2018-12-14] MEDS ORDERED: MAALOX 30 ML SUSP *UDC PO PRN (13:45)
[2018-12-14 15:22] VITALS: BP 138/84
[2018-12-14 15:41] VITALS: BP 134/84
[2018-12-14] MEDS: THIAMINE 100 MG TAB PO SCH (16:12)
[2018-12-14] MEDS: LORazepam 2 MG TAB PO PRN (16:12)
[2018-12-14 16:38] VITALS: BP 122/84
[2018-12-14] MEDS: ACETAMINOPHEN TAB 650MG DOSE (2X325MG) PO PRN (21:10)
[2018-12-14] MEDS: traZODone 50 MG TAB PO PRN (21:37)
[2018-12-14] MEDS ORDERED: QUEtiapine FUMARATE 50 MG TAB PO ONE (21:45)
[2018-12-15 06:15] VITALS: BP 105/63
[2018-12-15] MEDS: MULTIVITAMINS/MINERALS THERAP 1 TAB PO SCH (09:36)
[2018-12-15] MEDS: THIAMINE 100 MG TAB PO SCH ×2 (09:36→20:47)
[2018-12-15] MEDS: FOLIC ACID 1 MG TAB PO SCH (09:36)
[2018-12-15 09:37] VITALS: BP 132/79
[2018-12-15] MEDS: LORazepam 2 MG TAB PO PRN ×2 (09:42→19:45)
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
[2018-12-15] MEDS ORDERED: ESCITALOPRAM OXALATE 10 MG TAB (LEXAPRO) PO ONE (12:00)
[2018-12-15] MEDS ORDERED: TETANUS/DIPHTHERIA TOX ADSORB ADULT 0.5ML SYR/VIAL (90714) IM ONE (18:15)
[2018-12-15] MEDS: CEPHALEXIN 500 MG CAP PO SCH (18:34)
[2018-12-15 18:58] VITALS: BP 108/77
[2018-12-15 19:42] VITALS: BP 124/82
--- NOTE | 2018-12-15 20:01 | CR ---
DATE OF CONSULTATION: 12/15/2018 CHIEF COMPLAINT: Suicide attempt. HISTORY OF PRESENT ILLNESS: A 48-year-old female admitted to inpatient psychiatric unit due to a suicide attempt with slashing her wrist. Hospitalist ws consulted for management of the patient post trauma. She was sutured at [facility] by the emergency room and was subsequently seen by orthopedic surgery who thought that the patient should follow with a hand surgeon in 7-10 days. She had received a tetanus shot and currently on Keflex for antibiotic prophylaxis. She denies any paresthesias. Pain is well-controlled on current medications. She denies any changes in activities of daily living (ADLs), able to use her utensils while she is eating. She did have a 50% injury to the left flexor carpi radialis tendon and palmaris longus on both hands. While in inpatient mental health unit, she has not developed any fever. She has been slightly tachycardic but otherwise no purulence or serous drainage from the incision site. PAST MEDICAL HISTORY: Reflux disease, history of dysplasia, two loop electrical excision procedure (LEEP) procedures, depression. PAST SURGICAL HISTORY: Two loop electrical excision procedure (LEEP) procedures. FAMILY HISTORY: Mother with hypertension. Maternal grandmother with breast cancer and melanoma. Maternal grandfather with coronary artery disease (CAD). Father with suicide. Brother with suicide. SOCIAL HISTORY: The patient smokes cigarettes, two children, committed suicide. Occasional marijuana, 4-6 beers a day. ALLERGIES: SULFA and CLINDAMYCIN. HOME MEDICATIONS: None. REVIEW OF SYSTEMS: Per history of present illness (HPI), 12-point system otherwise negative. PHYSICAL EXAMINATION: Temperature 99, pulse 92, respiratory rate 14, blood pressure 105/63, 100% on room air. GENERAL: The patient is awake, alert, oriented, answering questions, slightly withdrawn, not engaging, answers briefly. Anicteric sclerae. No jaundice. No jugular venous distention (JVD). No thyromegaly. LUNGS: Clear to auscultation. No wheezing, rales, or rhonchi. HEART: S1, S2, sinus. ABDOMEN: Soft, nontender, nondistended. Positive bowel sounds. No rebound or guarding. EXTREMITIES: No clubbing, cyanosis, or pitting edema. Bilateral hands have lacerations from prior suicide attempt. She has well-healed, clean, dry sutures. She is able to oppose the thumb with all the fingers. SKIN: Warm, dry, well-perfused. There is no drainage at the laceration site. LABORATORY DATA: None. ASSESSMENT AND PLAN: 1. Suicide attempt. Managed by psychiatrist. 2. Bilateral wrist lacerations. Recommendations from hand surgeon is to continue on antibiotics, tetanus, and b/l soft wrist splints.outpt fu at hospital discharge within 1 wk 3. Depression Defer to psychiatrist. SARAH
[2018-12-15] MEDS: traZODone 50 MG TAB PO PRN (20:48)
[2018-12-15] MEDS ORDERED: QUEtiapine FUMARATE 50 MG TAB PO ONE (21:00)
[2018-12-16] MEDS: CEPHALEXIN 500 MG CAP PO SCH ×4 (06:11→17:43)
[2018-12-16 06:35] VITALS: BP 107/67
[2018-12-16] MEDS ORDERED: ESCITALOPRAM OXALATE 10 MG TAB (LEXAPRO) PO SCH (09:00)
[2018-12-16] MEDS: MULTIVITAMINS/MINERALS THERAP 1 TAB PO SCH (09:43)
[2018-12-16] MEDS: FOLIC ACID 1 MG TAB PO SCH (09:43)
[2018-12-16] MEDS: THIAMINE 100 MG TAB PO SCH ×2 (09:43→21:06)
[2018-12-16] MEDS: MOM 30ML SUSPENSION UDC PO PRN (09:44)
[2018-12-16 10:30] VITALS: BP 113/72
[2018-12-16] MEDS: LORazepam 2 MG TAB PO PRN (10:52)
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
[2018-12-16] MEDS ORDERED: ESCITALOPRAM OXALATE 10 MG TAB (LEXAPRO) PO ONE (13:00)
--- NOTE | 2018-12-16 15:46 | REP ---
Bilateral hand series: Eight views. History: Bilateral wrist lacerations, bilateral palmar tendon laceration. Findings: Four views of each wrist demonstrate mild bandaging artifact over the distal forearms. No opaque foreign body or fracture is seen. No soft tissue gas is visible. Impression: No acute bony abnormality. No opaque foreign body seen. Electronically Signed by Marco Wilson MD 12/16/2018 04:51 P
[2018-12-16 16:30] VITALS: BP 120/77
[2018-12-16] MEDS: hydrOXYzine 50 MG TAB PO PRN (17:44)
[2018-12-16 18:00] VITALS: BP 118/81
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
[2018-12-16] MEDS: QUEtiapine FUMARATE 50 MG TAB PO SCH (21:06)
[2018-12-16] MEDS: traZODone 50 MG TAB PO PRN (21:06)
[2018-12-17] MEDS: CEPHALEXIN 500 MG CAP PO SCH ×5 (00:04→22:11)
[2018-12-17 00:30] VITALS: BP 112/80
[2018-12-17 06:35] VITALS: BP 104/57
[2018-12-17 09:12] VITALS: BP 117/77
[2018-12-17] MEDS: LORazepam 2 MG TAB PO PRN ×2 (09:15→20:09)
[2018-12-17] MEDS: FOLIC ACID 1 MG TAB PO SCH (09:15)
[2018-12-17] MEDS: ESCITALOPRAM OXALATE 10 MG TAB (LEXAPRO) PO SCH (09:15)
[2018-12-17] MEDS: THIAMINE 100 MG TAB PO SCH (09:16)
[2018-12-17] MEDS: MULTIVITAMINS/MINERALS THERAP 1 TAB PO SCH (09:16)
[2018-12-17] MEDS: ACETAMINOPHEN TAB 650MG DOSE (2X325MG) PO PRN (09:16)
--- NOTE | 2018-12-17 10:18 | CR ---
DATE OF CONSULTATION: 12/14/2018 CHIEF COMPLAINT: Bilateral wrist pain. This is a 48-year-old female who is admitted to the mental health unit after self inflicted bilateral wrist lacerations she did last Thursday. She was initially seen at [facility] on 12/13/2018 where her wounds were irrigated and then closed. My office then prescribed seven days of Keflex and made sure her tetanus was up to date. She claims she had suicidal ideation. At this time, she complains of wrist soreness. She denies any numbness, tingling, fevers, chills, nausea, vomiting, or difficulty moving her wrists other than some soreness. Complete 10-system review is remarkable for pertinent positives and negatives above, otherwise review of systems negative.
--- NOTE | 2018-12-17 11:12 | MHIPNPDOC ---
[facility] Progress Note Progress Note DATE OF SERVICE: 12/17/18 HISTORY: Per ED, patient is a 48 -year-old , female, who presented as a transfer from [facility] for a Mental Health Evaluation. Pt had cut both wrists on 12/13 because she "didn't want to stay at her boyfriends house." Pt claimed to not have any money for cab [employer] and cut her wrists instead with one so severe it had tendon involvement per [facility]. Currently reports 5/10 pain in wrists. Pt reports depression as well as SI. Patient has had a history of suicide attempts via OD, as well as multiple inpatient admissions in the past (the most recent being in ). Pt reports no current HI. VITAL SIGNS: See below. CURRENT MEDICATIONS: See below NEW TEST RESULTS: see below Mental Status Examination General: Pt is wearing Hospital clothing she had removed her wrist guards and just had gauze around her wrists. Pt appears disheveled. Speech: Spontaneous and fluid Thought processes: Linear and logical Thought content: "I'm really tired today." Abstract reasoning, and computation: Intact Description of associations: Intact Description of abnormal or psychotic thoughts: Denies any suicidal or homicidal ideation. Denies any auditory or visual hallucinations. Does not appear to be responding to internal stimuli. Does not appear to be endorsing any bizarre or paranoid ideation. Judgment: fair Insight: fair Orientation: Alert and orientated 3 Cognition: Grossly normal Recent and remote memory: Intact Attention span and concentration: Intact Fund of knowledge: Adequate Mood: "better" Affect: less depressed and anxious, is constricted Diagnoses Major depressive disorder, recurrent, severe without psychosis. PTSD, chronic. Alcohol use disorder, severe. Unspecified personality disorder, rule out borderline. Assessment: Pt had not left her bed this morning and refused to get up. She claimed she slept poorly the night before and that she just wanted to sleep more. She denied any worsening of her depression and attributed her lack of energy to sleep. She is tolerating her medications well and finding increase in lexapro beneficial. Her wrist pain was worse at a 7/10 today, and she took ibuprofen and found it helpful. Improving alcohol withdrawal symptoms while on ciwa protocol with available ativan. Patient denied going to any group sessions yesterday and did not make any claims to go to any today. Patient asked about her d/c date being Thursday and is adamant about leaving. Pt denies any current SI/HI. Pt feels safe here. Plan: Continue current medications lexapro 20mg daily seroquel 50mg qhs vistaril 50mg q6hr prn anxiety trazodone 50mg qhs prn insomnia ciwa protocol for alcohol withdrawal. Time Spent: 30min Vital Signs Vital Signs Date Time Temp Pulse Resp B/P (MAP) Pulse Ox O2 Delivery O2 Flow Rate FiO2 12/17/18 09:12 100 117/77 12/17/18 06:35 98.5 12 12/14/18 14:24 100 Room Air Current Medications Current Medications Medications (Trade) Dose Ordered Sig/Namrata Route PRN Reason Start Time Stop Time Status Last Admin Dose Admin Acetaminophen (Tylenol Tab) 650 mg Q6HP PRN PO HEADACHE or DISCOMFORT 12/14/18 13:45 12/17/18 09:16 Al Hydrox/Mg Hydrox/Simethicone (Mylanta) 30 ml Q4HP PRN PO HEARTBURN/INDIGESTION 12/14/18 13:45 Cephalexin Monohydrate (Keflex) 500 mg Q6H PO 12/15/18 18:00 12/22/18 12:01 12/17/18 05:56 Escitalopram Oxalate (Lexapro) 10 mg DAILY PO 12/16/18 09:00 12/16/18 12:29 DC 12/16/18 09:43 Escitalopram Oxalate (Lexapro) 20 mg DAILY PO 12/17/18 09:00 12/17/18 09:15 Folic Acid (Folic Acid) 1 mg DAILY PO 12/15/18 09:00 12/17/18 09:15 Home Med (Med Rec Complete!) ASDIRECTED XX 12/14/18 13:00 12/14/18 13:03 DC Hydroxyzine HCl (Atarax) 50 mg Q6HP PRN PO ANXIETY/AGITATION 12/15/18 12:00 12/16/18 17:44 Lorazepam (Ativan) 2 mg ASDIRECTED PRN PO SEE PROTOCOL 12/14/18 15:45 12/17/18 09:15 Magnesium Hydroxide (Milk Of Magnesia) 30 ml DAILYPRN PRN PO CONSTIPATION 12/14/18 13:45 12/16/18 09:44 Multivitamins (Theragram-M) 1 tab DAILY PO 12/15/18 09:00 12/17/18 09:16 Quetiapine Fumarate (SEROquel) 50 mg QHS PO 12/16/18 21:00 12/16/18 21:06 Thiamine HCl (Thiamine HCl) 100 mg BID PO 12/14/18 16:00 12/17/18 09:01 DC 12/17/18 09:16 Trazodone HCl (Desyrel) 50 mg QHSP PRN PO INSOMNIA 12/14/18 13:45 12/16/18 21:06 Allergies Coded Allergies: Sulfa (Sulfonamide Antibiotics) (Verified Allergy, Unknown, RASH, 10/26/18) clindamycin (Verified Allergy, Unknown, RASH, 10/26/18) LOBO FRANCO DO Dec 17, 2018 11:12 am
[2018-12-17 17:32] VITALS: BP 121/72
[2018-12-17] MEDS: QUEtiapine FUMARATE 50 MG TAB PO SCH (22:11)
[2018-12-17] MEDS: traZODone 50 MG TAB PO PRN (22:11)
[2018-12-18] MEDS: CEPHALEXIN 500 MG CAP PO SCH ×4 (06:16→23:04)
[2018-12-18 07:14] VITALS: BP_SYST 99; BP_DIAS 60; BP_DIAS 66
[2018-12-18 09:25] VITALS: BP 120/76
[2018-12-18] MEDS: FOLIC ACID 1 MG TAB PO SCH (09:28)
[2018-12-18] MEDS: ESCITALOPRAM OXALATE 10 MG TAB (LEXAPRO) PO SCH (09:28)
[2018-12-18] MEDS: LORazepam 2 MG TAB PO PRN ×3 (09:28→20:18)
[2018-12-18] MEDS: MULTIVITAMINS/MINERALS THERAP 1 TAB PO SCH (09:28)
[2018-12-18 17:48] VITALS: BP 115/65
[2018-12-18 20:19] VITALS: BP 123/86
[2018-12-18] MEDS: traZODone 50 MG TAB PO PRN (21:02)
[2018-12-18] MEDS: QUEtiapine FUMARATE 50 MG TAB PO SCH (21:02)
[2018-12-19] MEDS: CEPHALEXIN 500 MG CAP PO SCH ×4 (05:48→21:05)
[2018-12-19 06:24] VITALS: BP 110/59
[2018-12-19] MEDS: ESCITALOPRAM OXALATE 10 MG TAB (LEXAPRO) PO SCH (08:19)
[2018-12-19] MEDS: LORazepam 2 MG TAB PO PRN ×3 (08:19→19:38)
[2018-12-19] MEDS: MULTIVITAMINS/MINERALS THERAP 1 TAB PO SCH (08:19)
[2018-12-19] MEDS: FOLIC ACID 1 MG TAB PO SCH (08:19)
[2018-12-19 17:37] VITALS: BP 112/70
[2018-12-19 19:38] VITALS: BP 121/87
[2018-12-19] MEDS: MOM 30ML SUSPENSION UDC PO PRN (21:03)
[2018-12-19] MEDS: QUEtiapine FUMARATE 50 MG TAB PO SCH (21:03)
[2018-12-19] MEDS: traZODone 50 MG TAB PO PRN (21:03)
[2018-12-20] MEDS: CEPHALEXIN 500 MG CAP PO SCH ×4 (05:39→23:02)
[2018-12-20 06:33] VITALS: BP 100/62
[2018-12-20 08:40] VITALS: BP 100/62
[2018-12-20] MEDS: FOLIC ACID 1 MG TAB PO SCH (09:30)
[2018-12-20] MEDS: MULTIVITAMINS/MINERALS THERAP 1 TAB PO SCH (09:30)
[2018-12-20] MEDS: ESCITALOPRAM OXALATE 10 MG TAB (LEXAPRO) PO SCH (09:30)
[2018-12-20 12:22] VITALS: BP 114/84
[2018-12-20] MEDS: hydrOXYzine 50 MG TAB PO PRN (12:27)
[2018-12-20 16:38] VITALS: BP 104/59
[2018-12-20] MEDS: QUEtiapine FUMARATE 50 MG TAB PO SCH (21:40)
[2018-12-20] MEDS: traZODone 50 MG TAB PO PRN (21:41)
[2018-12-21] MEDS: CEPHALEXIN 500 MG CAP PO SCH ×2 (06:03→11:47)
[2018-12-21 06:44] VITALS: BP 123/79
[2018-12-21] MEDS: MULTIVITAMINS/MINERALS THERAP 1 TAB PO SCH (08:48)
[2018-12-21] MEDS: ESCITALOPRAM OXALATE 10 MG TAB (LEXAPRO) PO SCH (08:49)
[2018-12-21] MEDS: FOLIC ACID 1 MG TAB PO SCH (08:49)
[2018-12-21] MEDS ORDERED: NEOSPORIN TOP OINT 15GM TOP SCH (09:00)
[2018-12-21] MEDS ORDERED: QUET1TAB8 PO (09:16)
[2018-12-21] MEDS ORDERED: HYDR1TAB33 PO (09:16)
[2018-12-21] MEDS ORDERED: ESCI10TA2 PO (09:16)
[2018-12-21] MEDS ORDERED: TRAZ-252 PO (09:16)
--- NOTE | 2018-12-21 09:17 | MHDSPDOC ---
[facility] Discharge Summary Discharge Summary DATE OF ADMISSION: Dec 14, 2018 at 1:43 pm DATE OF DISCHARGE: Dec 21, 2018 DISCHARGE DIAGNOSES: Major depressive disorder, recurrent, severe without psychosis. PTSD, chronic. Alcohol use disorder, severe. Unspecified personality disorder, rule out borderline. REASON FOR ADMISSION: Per ED, patient is a 48 -year-old , female, who presented as a transfer from [facility] for a Mental Health Evaluation. Pt had cut both wrists on 12/13 because she "didn't want to stay at her boyfriends house." Pt claimed to not have any money for [employer] and cut her wrists instead with one so severe it had tendon involvement per [facility]. Currently reports 5/10 pain in wrists. Pt reports depression as well as SI. Patient has had a history of suicide attempts via OD, as well as multiple inpatient admissions in the past (the most recent being in ). Pt reports no current HI. CONSULTANTS INVOLVED: Medicine and Ortho regarding wrist sutures TREATMENT AND PROGRESS ON THE UNIT : Pt was admitted to [facility], seen for psychiatric assessment and restarted on her outpatient lexapro 20mg daily and seroquel 50mg qhs. She was provided vistaril 10mg q6hr prn anxiety and trazodone 50mg qhs prn insomnia. She was placed on a ciiwa protocol for alcohol withdrawal that she tolerated well and by time of discharge no long require ativan and denied alcohol withdrawal symptoms. Pt found her medications beneficial and tolerated them well. She attended groups daily during her stay. Her symptoms improved with treatment. On day of discharge she denied depression, anxiety, insomnia, SI/HI, hallucinations, delusions. She was discharged home with follow-up at [facility]. She felt safe for discharge. DISCHARGE ASSESSMENT: Pt seen and states that her mood is "good" and she's greatly looking forward to going home today. States she's no longer having alcohol withdrawal symptoms. States she's being social on the milieu which is beneficial. States she slept well last night. Feels she is tolerating her medications and feels they're beneficial. She is attending groups and finding them helpful. She denies depression, anxiety, insomnia, SI/HI, hallucinations, delusions. Pt feels safe to be discharged home today. MENTAL STATUS EXAMINATION ON DISCHARGE: General: Pt is wearing her own clothing Speech: Spontaneous and fluid Thought processes: Linear and logical Thought content: denies SI/HI, hallucinations, delusions Abstract reasoning, and computation: Intact Description of associations: Intact Description of abnormal or psychotic thoughts: Denies any suicidal or homicidal ideation. Denies any auditory or visual hallucinations. Does not appear to be responding to internal stimuli. Does not appear to be endorsing any bizarre or paranoid ideation. Judgment: good Insight:good Orientation: Alert and orientated 3 Cognition: Grossly normal Recent and remote memory: Intact Attention span and concentration: Intact Fund of knowledge: Adequate Mood: "good" Affect: euthymic, full, congruent MEDICATIONS ON DISCHARGE: lexapro 20mg daily seroquel 50mg qhs vistaril 50mg q6hr prn anxiety trazodone 50mg qhs prn insomnia PLAN/FOLLOWUP ARRANGEMENTS: D/c home with follow-up [facility]. The amount of time spent in the coordination of care for this patient was approx imately 30 minutes. Vital Signs/I&Os Vital Signs Date Time Temp Pulse Resp B/P (MAP) Pulse Ox O2 Delivery O2 Flow Rate FiO2 12/21/18 06:44 97.7 89 12 123/79 (94) Medications Scheduled Escitalopram Oxalate (Escitalopram Oxalate) 10 Mg Tablet, 10 MG PO QHS, (Reported) Quetiapine Fumarate (Quetiapine Fumarate) 100 Mg Tablet, 100 MG PO QHS, (Reported) Trazodone HCl (Trazodone HCl) 50 Mg Tablet, 50 MG PO QHS, (Reported) Scheduled PRN Hydroxyzine HCl (Hydroxyzine HCl) 50 Mg Tablet, 50 MG PO Q6H PRN for ANXIETY/AGITATION, (Reported) Allergies Coded Allergies: Sulfa (Sulfonamide Antibiotics) (Verified Allergy, Unknown, RASH, 10/26/18) clindamycin (Verified Allergy, Unknown, RASH, 10/26/18) LOBO FRANCO DO Dec 21, 2018 9:17 am
== END 2018-12-21 11:50 | disposition home or self-care (01) | DRG 751 ==
LOC: M ED 23:56 → M ED INP 12-14 13:43 → M PSY 12-14 15:05
PROVIDERS: ADMIT Psychiatry & Neurology Psychiatry; ATTEND Psychiatry & Neurology Psychiatry
DX: F33.2 Major depressive disorder, recurrent severe without psychotic features (principal); F60.89 Other specific personality disorders; F10.10 Alcohol abuse, uncomplicated; F43.10 Post-traumatic stress disorder, unspecified; Z79.899 Other long term (current) drug therapy; Z88.2 Allergy status to sulfonamides; F17.210 Nicotine dependence, cigarettes, uncomplicated; S61.512D Laceration without foreign body of left wrist, subsequent encounter; S61.511D Laceration without foreign body of right wrist, subsequent encounter; X78.9XXD Intentional self-harm by unspecified sharp object, subsequent encounter; Y92.009 Unspecified place in unspecified non-institutional (private) residence as the place of occurrence of the external cause; F12.90 Cannabis use, unspecified, uncomplicated

== ENCOUNTER 2019-01-25 20:48 | Emergency (ER) | payer MEDICAID, OTHER ==
[~2019-01-25] VITALS: Ht 165.1 cm; Wt 63.3 kg
[2019-01-25 21:34] LABS: BASO % 0.4 % (0.0-1.0); EOS # 0.1 10^3/uL (0.0-0.5); EOS % 1.1 % (0.0-3.0); HEMATOCRIT 37.7 % (36.0-47.0); HEMOGLOBIN 12.8 g/dl (12.0-15.5); LYMPH # 2.9 10^3/uL (1.5-5.0); MEAN CORPUSCULAR HEMOGLOBIN 33.2 pg (27.0-33.0); MEAN CORPUSCULAR VOLUME 97.9 fl (80.0-96.0); MONO # 0.5 10^3/uL (0.0-0.8); MONO % 5.2 % (0.0-5.0); NEUTROPHILS # 5.7 10^3/uL (1.5-8.5); NEUTROPHILS % 61.9 % (36.0-66.0); PLATELET COUNT, AUTOMATED 246 10^3/uL (150-450); RED BLOOD COUNT 3.85 10^6/uL (4.00-5.40); WHITE BLOOD COUNT 9.3 10^3/uL (4.0-10.0)
[2019-01-25 22:01] LABS: AMPHETAMINES LEVEL URINE NEGATIVE (NEGATIVE); BARBITURATES URINE NEGATIVE (NEGATIVE); BENZODIAZEPINES URINE NEGATIVE (NEGATIVE); CANNABINOIDS URINE NEGATIVE (NEGATIVE); COCAINE METABOLITE URINE NEGATIVE (NEGATIVE); METHADONE URINE NEGATIVE (NEGATIVE); OPIATES URINE NEGATIVE (NEGATIVE); PHENCYCLIDINE URINE NEGATIVE (NEGATIVE)
[2019-01-25 22:11] LABS: ACETAMINOPHEN LEVEL < 2.0 UG/ML (10.0-30.0); ALBUMIN 3.6 GM/DL (3.2-5.2); ALT/SGPT 52 U/L (12-78); BILIRUBIN,DIRECT < 0.1 MG/DL (0.0-0.2); BILIRUBIN,TOTAL 0.2 MG/DL (0.2-1.0); BLOOD UREA NITROGEN 21 MG/DL (7-18); CALCIUM LEVEL 8.9 MG/DL (8.5-10.1); CARBON DIOXIDE LEVEL 25 MEQ/L (21-32); CHLORIDE LEVEL 110 MEQ/L (98-107); CPK CREATINE PHOSPHOKINASE 86 U/L (26-192); CREATININE FOR GFR 0.69 MG/DL (0.55-1.30); ETHYL ALCOHOL (ETHANOL) 0.251 % (0.000-0.010); GLOMERULAR FILTRATION RATE > 60.0 (>58); GLUCOSE, FASTING 108 MG/DL (70-100); POTASSIUM SERUM 4.1 MEQ/L (3.5-5.1); SALICYLATE LEVEL < 1.7 MG/DL (5.0-30.0); SODIUM LEVEL 144 MEQ/L (136-145); TOTAL PROTEIN 6.9 GM/DL (6.4-8.2)
[2019-01-25] MEDS ORDERED: NS 1,000 ML IV ONE (22:30)
[2019-01-26] MEDS ORDERED: QUET1TAB8 PO (04:32)
[2019-01-26] MEDS ORDERED: HYDR50TA70 PO (04:32)
[2019-01-26] MEDS ORDERED: TRAZ-186 PO (04:32)
[2019-01-26] MEDS ORDERED: ESCI10TA2 PO (04:32)
[2019-01-26] MEDS ORDERED: NS 1,000 ML IV ONE (05:30)
[2019-01-26 11:36] VITALS: BP 117/73
[2019-01-26 11:56] LABS: HCG, SERUM QUALITATIVE NEGATIVE (NEGATIVE)
--- NOTE | 2019-01-26 12:10 | ECGEPIP ---
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
== END 2019-01-26 12:10 ==
LOC: M ED 20:48
DX: T43.592A Poisoning by other antipsychotics and neuroleptics, intentional self-harm, initial encounter (principal); Y92.9 Unspecified place or not applicable; Y93.9 Activity, unspecified; R45.851 Suicidal ideations; F10.129 Alcohol abuse with intoxication, unspecified; R00.0 Tachycardia, unspecified; R94.31 Abnormal electrocardiogram [ECG] [EKG]; F32.9 Major depressive disorder, single episode, unspecified; Z79.899 Other long term (current) drug therapy; Z88.1 Allergy status to other antibiotic agents; Z88.2 Allergy status to sulfonamides
CPT/HCPCS: 36415; 80048; 80076; 80307; 82550; 84443; 84703; 85025; 93005; 93041; 94760; 96360; 96361; 99285; G0480

== ENCOUNTER 2019-05-15 17:44 | Emergency (ER) | payer OTHER ==
[~2019-05-15] VITALS: Ht 165.1 cm; Wt 61.7 kg
[2019-05-15 17:44] VITALS: BP 155/92
[~2019-05-15 17:44] MED LIST changes: +HYDR50TA70 PO; -TRAZ-163 PO; +TRAZ-186 PO; +TRAZ-257 PO; -TRAZ10TA PO; +TRAZ1TAB12 PO
[2019-05-15] MEDS ORDERED: TETRACAINE 0.5% OPHTH SOLN 4ML OD ONE (18:00)
[2019-05-15] MEDS ORDERED: FLUORESCEIN OPHTH 1 MG STRIP OD ONE (18:00)
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
[2019-05-15] MEDS ORDERED: ERYTHROMYCIN OPHTH OINT OD ONE (19:00)
[2019-05-15] MEDS ORDERED: ERYT1OIN26 OD (19:08)
== END 2019-05-15 19:19 | disposition home or self-care (01) ==
LOC: M ED 17:44
DX: S05.01XA Injury of conjunctiva and corneal abrasion without foreign body, right eye, initial encounter (principal); S02.2XXA Fracture of nasal bones, initial encounter for closed fracture; H11.151 Pinguecula, right eye; W50.0XXA Accidental hit or strike by another person, initial encounter; Y92.9 Unspecified place or not applicable; Y93.9 Activity, unspecified; Y99.9 Unspecified external cause status; F41.9 Anxiety disorder, unspecified; F32.9 Major depressive disorder, single episode, unspecified; F43.10 Post-traumatic stress disorder, unspecified; Z79.899 Other long term (current) drug therapy; Z88.2 Allergy status to sulfonamides; Z88.1 Allergy status to other antibiotic agents

== ENCOUNTER 2019-09-16 12:42 | Inpatient (IN) | payer MEDICAID, OTHER ==
[~2019-09-16] VITALS: Ht 167.6 cm; Wt 58.7 kg
[~2019-09-16 12:42] MED LIST changes: +ERYT5OIN25 OD; +QUET100T2 PO; -QUET1TAB8 PO
[2019-09-16] MEDS ORDERED: NS 1,000 ML IV ONE ×2 (13:00→16:45)
[2019-09-16] MEDS ORDERED: NALOXONE 2MG/2ML SYRINGE (J2310 PER 1MG) IV ONE (13:00)
[2019-09-16 13:16] LABS: BASO % 0.5 % (0.0-1.0); EOS # 0.1 10^3/uL (0.0-0.5); EOS % 1.3 % (0.0-3.0); HEMATOCRIT 40.4 % (36.0-47.0); HEMOGLOBIN 13.3 g/dl (12.0-15.5); LYMPH # 2.2 10^3/uL (1.5-5.0); LYMPH % 29.1 % (24.0-44.0); MEAN CORPUSCULAR HEMOGLOBIN 31.4 pg (27.0-33.0); MEAN CORPUSCULAR HGB CONC 32.9 g/dl (32.0-36.5); MEAN CORPUSCULAR VOLUME 95.5 fl (80.0-96.0); MONO # 0.6 10^3/uL (0.0-0.8); MONO % 7.4 % (0.0-5.0); NEUTROPHILS # 4.6 10^3/uL (1.5-8.5); NEUTROPHILS % 61.4 % (36.0-66.0); PLATELET COUNT, AUTOMATED 255 10^3/uL (150-450); RED BLOOD COUNT 4.23 10^6/uL (4.00-5.40); WHITE BLOOD COUNT 7.6 10^3/uL (4.0-10.0)
[2019-09-16 13:46] LABS: ACETAMINOPHEN LEVEL < 2.0 UG/ML (10.0-30.0); ALBUMIN 3.8 GM/DL (3.2-5.2); ALT/SGPT 33 U/L (12-78); BILIRUBIN,DIRECT 0.1 MG/DL (0.0-0.2); BILIRUBIN,TOTAL 0.4 MG/DL (0.2-1.0); BLOOD UREA NITROGEN 15 MG/DL (7-18); CALCIUM LEVEL 8.5 MG/DL (8.5-10.1); CARBON DIOXIDE LEVEL 23 MEQ/L (21-32); CHLORIDE LEVEL 109 MEQ/L (98-107); CPK CREATINE PHOSPHOKINASE 186 U/L (26-192); ETHYL ALCOHOL (ETHANOL) 0.121 % (0.000-0.010); GLOMERULAR FILTRATION RATE > 60.0 (>58); GLUCOSE, FASTING 71 MG/DL (70-100); POTASSIUM SERUM 3.7 MEQ/L (3.5-5.1); SALICYLATE LEVEL < 1.7 MG/DL (5.0-30.0); SODIUM LEVEL 144 MEQ/L (136-145); TOTAL PROTEIN 7.1 GM/DL (6.4-8.2)
[2019-09-16 14:16] LABS: AMPHETAMINES LEVEL URINE NEGATIVE (NEGATIVE); BARBITURATES URINE NEGATIVE (NEGATIVE); BENZODIAZEPINES URINE NEGATIVE (NEGATIVE); CANNABINOIDS URINE NEGATIVE (NEGATIVE); COCAINE METABOLITE URINE NEGATIVE (NEGATIVE); METHADONE URINE NEGATIVE (NEGATIVE); OPIATES URINE NEGATIVE (NEGATIVE); PHENCYCLIDINE URINE NEGATIVE (NEGATIVE)
--- NOTE | 2019-09-16 16:09 | REP ---
PORTABLE CHEST X-RAY: Single view. HISTORY: Drug overdose. COMPARISON CHEST X-RAY: December 28, 2013. FINDINGS: Monitoring electrodes overlie the chest. Lungs are symmetrically aerated and clear. The pleural angles are sharp although the deepest portion of the right lateral pleural angle is excluded from the field of view. No infiltrate is seen. Heart is not enlarged. IMPRESSION: No active cardiopulmonary disease. Electronically Signed by Marco Wilson MD 09/16/2019 04:33 P
[2019-09-16] MEDS ORDERED: LORazepam 2 MG/ML VIAL (J2060) IV STA (19:18)
[2019-09-17] MEDS ORDERED: MAALOX 30 ML SUSP *UDC PO PRN
[2019-09-17] MEDS ORDERED: MOM 30ML SUSPENSION UDC PO PRN
[2019-09-17] MEDS ORDERED: IBUPROFEN 400 MG TAB PO PRN
--- NOTE | 2019-09-17 00:12 | ECGEPIP ---
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
[2019-09-17 00:13] VITALS: BP 142/94
[2019-09-17] MEDS ORDERED: ESCI20TA PO (00:14)
[2019-09-17] MEDS: LORazepam 2 MG TAB PO PRN ×2 (00:48→22:09)
[2019-09-17] MEDS: traZODone 50 MG TAB PO PRN ×2 (00:48→20:32)
[2019-09-17 05:57] VITALS: BP 142/82
[2019-09-17 06:09] VITALS: BP 142/82
[2019-09-17] MEDS: FOLIC ACID 1 MG TAB PO SCH (09:22)
[2019-09-17] MEDS: NICOTINE 21MG/24HR 1 EA TRANSDERMAL TD SCH (09:22)
[2019-09-17] MEDS: THIAMINE 100 MG TAB PO SCH ×2 (09:22→20:32)
[2019-09-17] MEDS: MULTIVITAMINS/MINERALS THERAP 1 TAB PO SCH (09:22)
[2019-09-17 16:00] VITALS: BP 132/88
[2019-09-17] MEDS ORDERED: LORazepam 1 MG TAB PO ONE (16:00)
[2019-09-17 16:29] VITALS: BP 132/88
[2019-09-17 22:00] VITALS: BP 146/98
[2019-09-17] MEDS: QUEtiapine FUMARATE 50 MG TAB PO SCH (22:32)
[2019-09-18 06:00] VITALS: BP 140/72
[2019-09-18 06:22] VITALS: BP 140/72
[2019-09-18] MEDS: LORazepam 2 MG TAB PO PRN ×2 (06:34→18:53)
[2019-09-18] MEDS ORDERED: ESCITALOPRAM OXALATE 10 MG TAB (LEXAPRO) PO SCH (09:00)
[2019-09-18] MEDS: FOLIC ACID 1 MG TAB PO SCH (09:49)
[2019-09-18] MEDS: NICOTINE 21MG/24HR 1 EA TRANSDERMAL TD SCH (09:49)
[2019-09-18] MEDS: MULTIVITAMINS/MINERALS THERAP 1 TAB PO SCH (09:49)
[2019-09-18] MEDS: THIAMINE 100 MG TAB PO SCH ×2 (09:49→20:33)
[2019-09-18 14:50] VITALS: BP 148/96
--- NOTE | 2019-09-18 15:07 | HPE ---
DATE OF ADMISSION: 09/16/2019 Date of Service: 09/17/2019 CHIEF COMPLAINT: Depression. HISTORY OF THE PRESENT ILLNESS: This is a 49-year-old female with a history of reflux, dysplasia, two loop electrosurgical (electrical) excision procedures, prior history of suicide attempt with bilateral wrist lacerations in November 2018, admitted to the inpatient mental health unit for management. Hospitalist was asked to consult for any acute medical issues. Patient denies fever, chills, shortness of breath, chest pain, pressure, tightness, lightheadedness, dizziness. No weight gain or weight loss. Denies any nausea, vomiting, diarrhea, abdominal pain, dysuria, urgency, frequency, chills, bright red blood per rectum, melena, black tarry stools, hematemesis. Denies bilateral upper and lower extremity weakness, paresthesias. No other acute medical complaints. PAST MEDICAL HISTORY: 1. Reflux. 2. Dysplasia - two loop electrosurgical excision procedures (LEEP). 3. Depression, suicide attempt, bilateral wrist lacerations. PAST SURGICAL HISTORY: 1. LEEP procedure times two. 2. Wrist lacerations November 2018, refer to hand surgeon, Dr. Gregory, with bilateral soft wrist splints. FAMILY HISTORY: Mother with hypertension. Maternal grandmother with breast cancer, melanoma. Maternal grandfather with coronary artery disease. Father with suicide, brother with suicide. SOCIAL HISTORY: Active smoker. Two children. committed suicide. Occasional marijuana. Patient drinks 4-6 beers a day. HOSPITAL MEDICATIONS: - thiamine 100 mg twice a day - folic acid 1 mg daily - multivitamin one tablet daily - nicotine patch daily - trazodone 50 mg subcu nightly as needed - ibuprofen 400 mg every 6 hours as needed - Milk of Magnesia 30 mL as needed daily - Mylanta 30 mL every 4 hours as needed - Ativan 2 mg as needed per protocol REVIEW OF SYSTEMS: Per history of the present illness. 12-point system otherwise negative. ALLERGIES: SULFA and CLINDAMYCIN. PHYSICAL EXAMINATION: Temperature 98.2, pulse 91, respiratory rate 14, blood pressure 142/82, 97% on room air. Generally, patient is awake, alert, oriented times three, answering questions. Anicteric sclerae. No jaundice. No jugular venous distention (JVD), thyromegaly. Moist mucous membranes. Lungs are clear to auscultation. No wheezing, rales or rhonchi. Air entry is equal. Heart: S1, S2, sinus rhythm. No murmurs, rubs, or gallops. Abdomen: Soft, nontender, nondistended. Positive bowel sounds. No rebound, no guarding. Extremities: No cyanosis, clubbing or any pitting edema. LABORATORY DATA: 09/16/2019 - white count 7.6, hemoglobin 13, hematocrit 40, platelet count 255. Sodium 144, potassium 3.7, chloride 109, bicarbonate 23, BUN 15, creatinine 0.7, glucose of 71, calcium 8.5, magnesium of 2, total bilirubin 0.4, direct bilirubin 0.1, AST 34, ALT 33, alkaline phosphatase of 56. ASSESSMENT AND PLAN: This is a 49-year-old with prior suicide attempt due to severe depression with bilateral wrist lacerations in November 2018, reflux, dysplasia with two LEEP procedures and severe depression, presents to inpatient mental health unit (IM) for management. CURRENT ISSUES: 1. Severe depression with suicide attempts, managed by psychiatrist. 2. Alcohol abuse. Patient is currently on Clinical [place] Withdrawal Assessment (CIWA) protocol, thiamine, multivitamin and folate. Active tobacco abuse. Tobacco cessation counseling has been provided, 21 mg patch daily. Pain controlled with Advil as needed. Bowel regimen with Milk of Magnesia. MTDD
[2019-09-18 16:33] LABS: OSMOLALITY SERUM 323 mOsmol/kg (275-295)
[2019-09-18 18:51] VITALS: BP 160/106
[2019-09-18] MEDS: QUEtiapine FUMARATE 50 MG TAB PO SCH (20:33)
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
[2019-09-19 06:09] VITALS: BP 133/85
[2019-09-19 06:11] VITALS: BP 133/85
[2019-09-19] MEDS: NICOTINE 21MG/24HR 1 EA TRANSDERMAL TD SCH (08:29)
[2019-09-19] MEDS: MULTIVITAMINS/MINERALS THERAP 1 TAB PO SCH (08:29)
[2019-09-19] MEDS: THIAMINE 100 MG TAB PO SCH ×2 (08:30→20:47)
[2019-09-19] MEDS: FOLIC ACID 1 MG TAB PO SCH (08:30)
[2019-09-19] MEDS: ESCITALOPRAM OXALATE 10 MG TAB (LEXAPRO) PO SCH (08:30)
--- NOTE | 2019-09-19 10:07 | MHIPNPDOC ---
[facility] Progress Note Progress Note DATE OF SERVICE: 09/19/19 49-year-old woman is seen in follow-up today, she reports that she had a good weekend and has making progress. She reports that she is feeling much better and that her depression is lifting. She reports that she's feeling improved since being resumed her home medications and realizes her overdose was poor judgment. She said no behavioral poems overnight. Vital Signs Vital Signs Date Time Temp Pulse Resp B/P (MAP) Pulse Ox O2 Delivery O2 Flow Rate FiO2 09/19/19 08:11 Room Air 09/19/19 06:11 98.1 83 16 133/85 (101) 09/18/19 16:50 96 09/17/19 11:00 5.0 Current Medications Current Medications Medications (Trade) Dose Ordered Sig/Namrata Route PRN Reason Start Time Stop Time Status Last Admin Dose Admin Al Hydrox/Mg Hydrox/Simethicone (Mylanta) 30 ml Q4HP PRN PO HEARTBURN/INDIGESTION 09/17/19 00:00 Escitalopram Oxalate (Lexapro) 10 mg DAILY PO 09/18/19 09:00 09/19/19 00:50 DC 09/18/19 09:49 Escitalopram Oxalate (Lexapro) 20 mg DAILY PO 09/19/19 09:00 09/19/19 08:30 Folic Acid (Folic Acid) 1 mg DAILY PO 09/17/19 09:00 09/19/19 08:30 Home Med (Med Rec Complete!) ASDIRECTED XX 09/17/19 00:15 09/17/19 00:19 DC Home Med (Med Rec Complete!) ASDIRECTED XX 09/17/19 00:30 09/17/19 00:24 DC Ibuprofen (Advil) 400 mg Q6HP PRN PO PAIN 09/17/19 00:00 Lorazepam (Ativan) 1 mg STAT STAT IV 09/16/19 19:18 09/16/19 19:19 DC 09/16/19 19:34 Lorazepam (Ativan) 2 mg ASDIRECTED PRN PO SEE PROTOCOL 09/17/19 00:00 09/18/19 18:53 Magnesium Hydroxide (Milk Of Magnesia) 30 ml DAILYPRN PRN PO CONSTIPATION 09/17/19 00:00 Multivitamins (Theragram-M) 1 tab DAILY PO 09/17/19 09:00 09/19/19 08:29 Nicotine (Nicoderm Cq 21mg) 1 patch DAILY TD 09/17/19 09:00 09/19/19 08:29 Quetiapine Fumarate (SEROquel) 50 mg QHS PO 09/17/19 21:00 09/19/19 00:50 DC 09/18/19 20:33 Quetiapine Fumarate (SEROquel) 100 mg QHS PO 09/19/19 21:00 Thiamine HCl (Thiamine HCl) 100 mg BID PO 09/17/19 09:00 09/20/19 08:59 09/19/19 08:30 Trazodone HCl (Desyrel) 50 mg QHSP PRN PO INSOMNIA 09/17/19 00:00 09/17/19 20:32 Allergies Coded Allergies: Sulfa (Sulfonamide Antibiotics) (Verified Allergy, Unknown, RASH, 09/16/19) clindamycin (Verified Allergy, Unknown, RASH, 09/16/19) Review of Systems Review of Systems HEENT: Denies: Head Aches Skin: Denies: Rash Pulmonary: Denies: Dyspnea, Cough Cardiovascular: Denies: Chest Pain, Palpitations Gastrointestinal: Denies: Nausea, Vomiting Neurological: Denies: Weakness, Numbness Mental Status Examination General Appearance: well groomed Build: average Demeanor: average Eye Contact: average Activity: average Behavior: cooperative Speech: clear Mood: euthymic Affect: full Thought Process: logical/linear Thought Content (Delusions): denies SI, HI, AVH Thought Content (Other): none reported Thought Content (Aggressive): none reported Perception (Hallucinations): none reported Perception (Other): none reported Cognition (Impairment of): none reported Cognition(Intelligence Est.): average Oriented: Awake, Alert Insight: improving Judgment: Improving Psychosis: Denies Assessment 49-year-old woman with likely PTSD and depression as well as alcohol problems is seen in follow-up, she is resumed partially on her home meds and is making some progress suggesting primarily situational problems to her depression. Should be observed and if she does not meet involuntary criteria discharged at her request tomorrow Problem List Problems: (1) Depression with suicidal ideation Status: Acute Response to Treatment: Improving Problem Text: Continue Lexapro and Seroquel at current dose (2) Post traumatic stress disorder (PTSD) Status: Chronic Response to Treatment: Stable Problem Specific Plan: Monitor Clinically Problem Text: Continue Lexapro and Seroquel at current dose (3) Alcohol intoxication Status: Chronic Response to Treatment: Stable Problem Specific Plan: Monitor Clinically Problem Text: consider outpatient addiction assesment Medications Scheduled Escitalopram Oxalate (Escitalopram Oxalate) 20 Mg Tablet, 20 MG PO DAILY, (Reported) Quetiapine Fumarate (Quetiapine Fumarate) 100 Mg Tablet, 100 MG PO QHS, (Reported) Trazodone HCl (Trazodone HCl) 50 Mg Tablet, 50 MG PO QHS, (Reported) GEORGETTE SHELBY DO Sep 19, 2019 10:07
[2019-09-19 15:15] VITALS: BP 147/99
[2019-09-19] MEDS: traZODone 50 MG TAB PO PRN (20:47)
[2019-09-19] MEDS ORDERED: QUEtiapine FUMARATE 100 MG TAB PO SCH (21:00)
[2019-09-20 06:06] VITALS: BP 126/66
--- NOTE | 2019-09-20 06:40 | MHIPN ---
DATE: 09/19/2019 This is a video assessment. This is being done because of the continuing virus pandemic. She is aware of this. This is followup. CHIEF COMPLAINT: Feels better. SUBJECTIVE: Seen for followup in the presence of staff. Says feels more rested and that she had a good night's sleep. She does not think that she would have taken the extra pills if she had not been drinking. Says tends to binge drink. Has been in touch with her daughter. Says that went well. MENTAL STATUS EXAMINATION: She is neat. She is cooperative. Broader affect. Appears more relaxed. She is coherent. Denies any thoughts of harming herself or anyone else. Currently no evidence of any psychosis. Cognition grossly intact. Judgment and insight remain questionable. ASSESSMENT: Posttraumatic stress disorder. Other specified depressive disorder. Rule out bipolar disorder. Possibility of alcohol use disorder. Appears more relaxed, less anxious. PLAN: Would suggest that her Seroquel is increased to 100 mg at night since that is her regular dose and the Lexapro to 20 mg daily, which is her regular dose. Encouraged to participate in activities in the unit. She can be discharged with followup when she is stable. Further recommendations will be made by the inpatient psychiatrist, Dr. Silver, tomorrow.
[2019-09-20] MEDS: MULTIVITAMINS/MINERALS THERAP 1 TAB PO SCH (08:21)
[2019-09-20] MEDS: FOLIC ACID 1 MG TAB PO SCH (08:21)
[2019-09-20] MEDS: ESCITALOPRAM OXALATE 10 MG TAB (LEXAPRO) PO SCH (08:21)
[2019-09-20] MEDS: NICOTINE 21MG/24HR 1 EA TRANSDERMAL TD SCH (08:22)
--- NOTE | 2019-09-20 09:15 | MHIPNPDOC ---
[facility] Progress Note Progress Note DATE OF SERVICE: 09/20/19 HISTORY: . VITAL SIGNS: See below. NEW TEST RESULTS: . CURRENT MEDICATIONS: See below. MENTAL STATUS EXAMINATION: Patient is a -year old female, who is . Speech: Is . Language skills are . Thought processes including: . Thought content: . Abstract reasoning, and computation: . Description of assoc iations: . Description of abnormal or psychotic thoughts: . Judgment: . Insight: [very limited, good, fair. poor]. Orientation: . Recent and remote memory: . Attention span and concentration: . Language: . Fund of knowledge: . Mood: . Affect: . DIAGNOSES: 1. . 2. . 3. . ASSESSMENT: MANAGEMENT PLAN: . TIME SPENT: minutes. Vital Signs Vital Signs Date Time Temp Pulse Resp B/P (MAP) Pulse Ox O2 Delivery O2 Flow Rate FiO2 09/20/19 06:06 98.5 85 16 126/66 (86) 97 Room Air 09/17/19 11:00 5.0 Current Medications Current Medications Medications (Trade) Dose Ordered Sig/Namrata Route PRN Reason Start Time Stop Time Status Last Admin Dose Admin Al Hydrox/Mg Hydrox/Simethicone (Mylanta) 30 ml Q4HP PRN PO HEARTBURN/INDIGESTION 09/17/19 00:00 Escitalopram Oxalate (Lexapro) 10 mg DAILY PO 09/18/19 09:00 09/19/19 00:50 DC 09/18/19 09:49 Escitalopram Oxalate (Lexapro) 20 mg DAILY PO 09/19/19 09:00 09/20/19 08:21 Folic Acid (Folic Acid) 1 mg DAILY PO 09/17/19 09:00 09/20/19 08:21 Home Med (Med Rec Complete!) ASDIRECTED XX 09/17/19 00:15 09/17/19 00:19 DC Home Med (Med Rec Complete!) ASDIRECTED XX 09/17/19 00:30 09/17/19 00:24 DC Ibuprofen (Advil) 400 mg Q6HP PRN PO PAIN 09/17/19 00:00 09/20/19 05:53 Lorazepam (Ativan) 1 mg STAT STAT IV 09/16/19 19:18 09/16/19 19:19 DC 09/16/19 19:34 Lorazepam (Ativan) 2 mg ASDIRECTED PRN PO SEE PROTOCOL 5/30/20 00:00 09/18/19 18:53 Magnesium Hydroxide (Milk Of Magnesia) 30 ml DAILYPRN PRN PO CONSTIPATION 09/17/19 00:00 Multivitamins (Theragram-M) 1 tab DAILY PO 09/17/19 09:00 09/20/19 08:21 Nicotine (Nicoderm Cq 21mg) 1 patch DAILY TD 09/17/19 09:00 09/19/19 08:29 Quetiapine Fumarate (SEROquel) 50 mg QHS PO 09/17/19 21:00 09/19/19 00:50 DC 09/18/19 20:33 Quetiapine Fumarate (SEROquel) 100 mg QHS PO 09/19/19 21:00 09/19/19 20:47 Thiamine HCl (Thiamine HCl) 100 mg BID PO 09/17/19 09:00 09/20/19 08:59 DC 09/19/19 20:47 Trazodone HCl (Desyrel) 50 mg QHSP PRN PO INSOMNIA 09/17/19 00:00 09/19/19 20:47 Allergies Coded Allergies: Sulfa (Sulfonamide Antibiotics) (Verified Allergy, Unknown, RASH, 09/16/19) clindamycin (Verified Allergy, Unknown, RASH, 09/16/19) GEORGETTE SHELBY DO Sep 20, 2019 09:15
--- NOTE | 2019-09-20 09:15 | MHDSPDOC ---
[facility] Discharge Summary Discharge Summary DATE OF ADMISSION: September 16, 2019 at 23:55 DATE OF DISCHARGE: Sep 20, 2019 at 12:15 DISCHARGE DIAGNOSES: (1) Depression with suicidal ideation (2) Post traumatic stress disorder (PTSD) (3) Alcohol intoxication REASON FOR ADMISSION: 49-year-old woman admitted after overdosing while intoxicated on alcohol. CONSULTANTS INVOLVED: none TREATMENT AND PROGRESS ON THE UNIT :. The patient is amidst the inpatient mental health unit had subsequently resumed on her home medications after a slow titration of Lexapro and Seroquel. She ultimately result back on her previous dose. The patient did well without any threats against herself or others and generally engaged well in the unit. She was placed on alcohol withdrawal protocol with no significant complications. She eventually resolved well and requested discharge. DISCHARGE ASSESSMENT: 49-year-old woman with likely alcohol promise presents after becoming intoxicated and overdosing. She is treated with her same medications and results well, suggesting a likely substance related problem. The patient at the time of discharge did not meet criteria for involuntary admission/extension due to having a normal mental status exam, fair insight into the situation, They are engaged in the discharge process, as well as being friendly and amenable in behavioral control and havent been engaging in any observed concerning behavior or ideation recently. They decline voluntary extension/admission at this time and must be discharged in good iain, as Im unable to make a case for holding the patient against their will. They may have historical risk factors of admissions and other interactions with psychiatry however, those are not modifiable from a clinical perspective. The patient will need to be discharged in good iain. MENTAL STATUS EXAMINATION ON DISCHARGE: General: Well dressed with good hygiene Speech: Spontaneous and fluid Thought processes: Linear and logical Thought content: Future orientated Abstract reasoning, and computation: Intact Description of associations: Intact Description of abnormal or psychotic thoughts:Denies any suicidal or homicidal ideation. Denies any auditory or visual hallucinations. Does not appear to be responding to internal stimuli. Does not appear to be endorsing any bizarre or paranoid ideation. Judgment: fair Insight: fair Orientation: Alert and orientated 3 Recent and remote memory: Intact Attention span and concentration: Intact Fund of knowledge: Adequate Mood: "okay" Affect: Euthymic with a full range PLAN/FOLLOWUP ARRANGEMENTS: follow-up made and safety plan engaged. The amount of time spent in the coordination of care for this patient was approximately 45 minutes. Vital Signs/I&Os Vital Signs Date Time Temp Pulse Resp B/P (MAP) Pulse Ox O2 Delivery O2 Flow Rate FiO2 09/20/19 06:06 98.5 85 16 126/66 (86) 97 Room Air 09/17/19 11:00 5.0 Medications Scheduled Escitalopram Oxalate (Escitalopram Oxalate) 20 Mg Tablet, 20 MG PO DAILY, (Reported) Nicotine (Nicotine Patch) 21 Mg Patch.td24, 1 PATCH TD DAILY for tobacco for 30 Days, #30 Quetiapine Fumarate (Quetiapine Fumarate) 100 Mg Tablet, 100 MG PO QHS, (Reported) Trazodone HCl (Trazodone HCl) 50 Mg Tablet, 50 MG PO QHS, (Reported) Allergies Coded Allergies: Sulfa (Sulfonamide Antibiotics) (Verified Allergy, Unknown, RASH, 09/16/19) clindamycin (Verified Allergy, Unknown, RASH, 09/16/19) GEORGETTE SHELBY DO Sep 20, 2019 09:15
[2019-09-20] MEDS ORDERED: NICO21PAT TD (10:10)
== END 2019-09-20 12:15 | disposition home or self-care (01) | DRG 754 ==
LOC: EDBD 12:42 → M ED 12:42 → M ED INP 23:55 → M ED 09-17 00:19 → M PSY 09-17 00:20
PROVIDERS: ADMIT Psychiatry & Neurology Psychiatry; ATTEND Psychiatry & Neurology Addiction Medicine
DX: F32.9 Major depressive disorder, single episode, unspecified (principal); R45.851 Suicidal ideations; F43.10 Post-traumatic stress disorder, unspecified; Z88.2 Allergy status to sulfonamides; Z88.8 Allergy status to other drugs, medicaments and biological substances; Z79.899 Other long term (current) drug therapy; K21.9 Gastro-esophageal reflux disease without esophagitis; F17.200 Nicotine dependence, unspecified, uncomplicated; F10.129 Alcohol abuse with intoxication, unspecified

== ENCOUNTER 2019-11-05 23:52 | Emergency (ER) | payer MEDICAID, OTHER ==
[~2019-11-05] VITALS: Ht 165.1 cm; Wt 53.6 kg
[2019-11-05 23:52] VITALS: BP 176/104
[~2019-11-05 23:52] MED LIST changes: +ESCI20TA PO; +NICO21PAT TD
[2019-11-06] MEDS ORDERED: MORPHINE 2 MG/ML 1ML VIAL (J2270) IV ONE (01:15)
[2019-11-06] MEDS ORDERED: NS 1,000 ML IV ONE (01:15)
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
[2019-11-06] MEDS ORDERED: NORCO 5/325MG TABLET (BULK FOR ED) PO ONE (02:15)
[2019-11-06] MEDS ORDERED: AUGMENTIN 875 MG TAB PO ONE (02:15)
[2019-11-06] MEDS ORDERED: AUGM500T34 PO (02:16)
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
== END 2019-11-06 03:29 | disposition home or self-care (01) ==
LOC: M ED 23:52
DX: S40.021A Contusion of right upper arm, initial encounter (principal); S40.022A Contusion of left upper arm, initial encounter; S50.11XA Contusion of right forearm, initial encounter; S50.12XA Contusion of left forearm, initial encounter; S20.229A Contusion of unspecified back wall of thorax, initial encounter; S20.219A Contusion of unspecified front wall of thorax, initial encounter; S41.152A Open bite of left upper arm, initial encounter; S02.2XXA Fracture of nasal bones, initial encounter for closed fracture; Y04.8XXA Assault by other bodily force, initial encounter; Y04.1XXA Assault by human bite, initial encounter; Y92.9 Unspecified place or not applicable; Y93.9 Activity, unspecified; Y99.9 Unspecified external cause status; F10.10 Alcohol abuse, uncomplicated; F43.10 Post-traumatic stress disorder, unspecified; F32.9 Major depressive disorder, single episode, unspecified; Z72.0 Tobacco use; M47.812 Spondylosis without myelopathy or radiculopathy, cervical region; M26.69 Other specified disorders of temporomandibular joint; Z79.899 Other long term (current) drug therapy; Z88.2 Allergy status to sulfonamides; Z88.1 Allergy status to other antibiotic agents
CPT/HCPCS: 70450; 70486; 71045; 72125; 73090; 96361; 96374; 99283; J2270

== ENCOUNTER 2020-05-29 01:55 | Emergency (ER) | payer OTHER, MEDICAID ==
[~2020-05-29] VITALS: Ht 167.6 cm; Wt 54.5 kg
[~2020-05-29 01:55] MED LIST changes: +AUGM500T34 PO; +ESCI10TA16 PO; -ESCI10TA2 PO; -ESCI20TA PO; +ESCI20TA16 PO
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
[2020-05-29 05:00] VITALS: BP 146/94
[2020-05-29] MEDS ORDERED: ACET325C5 PO (05:02)
[2020-05-29] MEDS ORDERED: IBUP-1022 PO (05:02)
== END 2020-05-29 05:12 | disposition home or self-care (01) ==
LOC: M ED 01:55
DX: S00.81XA Abrasion of other part of head, initial encounter (principal); Z87.81 Personal history of (healed) traumatic fracture; X58.XXXA Exposure to other specified factors, initial encounter; Y92.410 Unspecified street and highway as the place of occurrence of the external cause; Y93.9 Activity, unspecified; Y99.9 Unspecified external cause status; I25.10 Atherosclerotic heart disease of native coronary artery without angina pectoris; F17.200 Nicotine dependence, unspecified, uncomplicated; F12.10 Cannabis abuse, uncomplicated; M46.92 Unspecified inflammatory spondylopathy, cervical region; M50.322 Other cervical disc degeneration at C5-C6 level; Z79.899 Other long term (current) drug therapy; Z88.2 Allergy status to sulfonamides; Z88.1 Allergy status to other antibiotic agents

== ENCOUNTER 2020-08-01 00:56 | Inpatient (IN) | payer MEDICAID, OTHER ==
[~2020-08-01] VITALS: Ht 165.1 cm; Wt 55.0 kg
[~2020-08-01 00:56] MED LIST changes: +ACET325C5 PO; +IBUP-1022 PO
[2020-08-01] MEDS ORDERED: NS 1,000 ML IV ONE ×2 (01:20→02:25)
[2020-08-01 01:55] LABS: HEMATOCRIT 41.3 % (36.0-47.0); HEMOGLOBIN 13.6 g/dl (12.0-15.5); MEAN CORPUSCULAR HEMOGLOBIN 31.6 pg (27.0-33.0); MEAN CORPUSCULAR HGB CONC 32.9 g/dl (32.0-36.5); MEAN CORPUSCULAR VOLUME 95.8 fl (80.0-96.0); PLATELET COUNT, AUTOMATED 226 10^3/uL (150-450); RED BLOOD COUNT 4.31 10^6/uL (4.00-5.40); WHITE BLOOD COUNT 6.5 10^3/uL (4.0-10.0)
[2020-08-01 01:59] LABS: AMPHETAMINES LEVEL URINE POSITIVE (NEGATIVE); BARBITURATES URINE NEGATIVE (NEGATIVE); BENZODIAZEPINES URINE NEGATIVE (NEGATIVE); CANNABINOIDS URINE POSITIVE (NEGATIVE); COCAINE METABOLITE URINE NEGATIVE (NEGATIVE); METHADONE URINE NEGATIVE (NEGATIVE); OPIATES URINE NEGATIVE (NEGATIVE); PHENCYCLIDINE URINE NEGATIVE (NEGATIVE)
[2020-08-01 02:25] LABS: ALBUMIN 3.7 GM/DL (3.2-5.2); ALT/SGPT 773 U/L (12-78); BILIRUBIN,DIRECT 0.4 MG/DL (0.0-0.2); BILIRUBIN,TOTAL 0.7 MG/DL (0.2-1.0); BLOOD UREA NITROGEN 9 MG/DL (7-18); CALCIUM LEVEL 9.2 MG/DL (8.5-10.1); CARBON DIOXIDE LEVEL 26 MEQ/L (21-32); CHLORIDE LEVEL 103 MEQ/L (98-107); CPK CREATINE PHOSPHOKINASE 258 U/L (26-192); CREATININE FOR GFR 0.64 MG/DL (0.55-1.30); ETHYL ALCOHOL (ETHANOL) 0.165 % (0.000-0.010); GLOMERULAR FILTRATION RATE > 60.0 (>51); GLUCOSE, FASTING 112 MG/DL (70-100); POTASSIUM SERUM 3.3 MEQ/L (3.5-5.1); SALICYLATE LEVEL < 1.7 MG/DL (5.0-30.0); SODIUM LEVEL 138 MEQ/L (136-145); THYROID STIMULATING HORMONE 0.485 uIU/ML (0.358-3.740); TOTAL PROTEIN 7.2 GM/DL (6.4-8.2)
[2020-08-01 02:26] LABS: ACETAMINOPHEN LEVEL < 2.0 UG/ML (10.0-30.0)
[2020-08-01 02:43] LABS: ATYPICAL LYMPH 3 % (0-5); BASOPHILS 2 % (0-1); EOSINOPHILS 1 % (0-3); LYMPHOCYTES 37 % (16-44); MONOCYTES 10 % (0-5); NEUTROPHILS 47 % (28-66); PLATELET ESTIMATE NORMAL (NORMAL)
[2020-08-01] MEDS ORDERED: MULTIVITAMIN -ADULT INJECTION 10 ML, THIAMINE INJection 100 MG, FOLIC ACID 1 MG in NS 1... IV ONE (06:05)
[2020-08-01] MEDS ORDERED: LORazepam 2 MG TAB PO PRN ×2 (06:10→22:30)
[2020-08-01 07:27] LABS: ALBUMIN 2.9 GM/DL (3.2-5.2); BILIRUBIN,DIRECT 0.2 MG/DL (0.0-0.2); BILIRUBIN,TOTAL 0.4 MG/DL (0.2-1.0); TOTAL PROTEIN 5.9 GM/DL (6.4-8.2)
[2020-08-01 10:41] LABS: HEPATITIS B SURFACE ANTIBODY NEGATIVE (POSITIVE); HEPATITIS B SURFACE ANTIGEN NEGATIVE (NEGATIVE)
[2020-08-01 10:42] LABS: HEPATITIS C VIRUS ABY INDEX > 11.0 INDEX (<0.8)
--- NOTE | 2020-08-01 15:23 | ECGEPIP ---
[facility] - ED Test Date: 2020-08-01 Pat Name: CRISTINA TAY Department: Room: - Gender: Female Pin Maker: Aline TANG : 1970 Requested By: Júnior Kuhn Order Number: [id number] Reading MD: Júnior Adan Measurements Intervals [place] Rate: 94 P: 67 HI: 138 QRS: 64 QRSD: 74 T: 70 QT: 436 QTc: 545 Interpretive Statements Normal sinus rhythm Prolonged QT SIMILAR TO 09/16/19 Electronically Signed on 08-01-2020 15:23:02 EDT by Júnior Aadn
[2020-08-01] MEDS ORDERED: MOM 30ML SUSPENSION UDC PO PRN (17:40)
[2020-08-01] MEDS ORDERED: ACETAMINOPHEN TAB 650MG DOSE (2X325MG) PO PRN (17:40)
[2020-08-01] MEDS ORDERED: MAALOX 30 ML SUSP *UDC PO PRN (17:40)
[2020-08-01 21:33] VITALS: BP 103/77
[2020-08-01 22:49] VITALS: BP 103/77
[2020-08-01] MEDS: traZODone 50 MG TAB PO PRN (23:51)
[2020-08-02 07:30] VITALS: BP 140/71
[2020-08-02] MEDS: MULTIVITAMINS/MINERALS THERAP 1 TAB PO SCH (09:10)
[2020-08-02] MEDS: THIAMINE 100 MG TAB PO SCH ×2 (09:10→21:39)
[2020-08-02] MEDS: FOLIC ACID 1 MG TAB PO SCH (09:10)
[2020-08-02 16:03] VITALS: BP 135/88
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
--- NOTE | 2020-08-02 17:35 | HPEPDOC ---
[facility] Medical History & Physical Date of Admission Aug 01, 2020 Date of Service: Aug 02, 2020 History and Physical CHIEF COMPLAINT: [place] virus positive on 08/01/2020 HISTORY OF PRESENT ILLNESS: 50-year-old female admitted to the inpatient mental health unit due to depression by her history of suicide attempt tested positive on routine coronavirus testing on 08/01/2020. Patient complains of generalized muscle aches without fever, chills, cough, nausea, vomiting, diarrhea, decreased appetite, loss of taste or smell. She complains of some shortness of breath with ambulation but has been saturating 95-100% on room air. Patient otherwise denies any sore throat, changes in vision weight sleep habits bowel habits, dysuria, urgency, frequency, polyuria, polyphagia, upper or lower extremity weakness, paresthesias, headaches, diplopia, vertigo, tinnitus, hearing loss, chest pain, pressure, tightness, lightheadedness, dizziness. All other systems negative. 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 Gastroesophageal reflux disease coronavirus 08/01/2020 PAST SURGICAL HISTORY: LEEP procedure 2. Wrist lacerations 2019. Refer to hand surgeon, Dr. Gregory with bilateral soft wrist splints SOCIAL HISTORY: Actively smoking cigarettes. 2 children, committed suicide. Occasional marijuana. Drinks 4-6 beers a day FAMILY HISTORY: Mother hypertension. Maternal grandmother breast cancer, melanoma, maternal grandfather CAD. Father with suicide. Brother suicide ALLERGIES: Please see below. REVIEW OF SYSTEMS: 10 point review of systems negative aside from positive findings on HPI HOME MEDICATIONS: Please see below. PHYSICAL EXAMINATION: VITAL SIGNS: See below GENERAL APPEARANCE: Awake, alert, oriented 3. Arousable. No respiratory distress HEENT: Flat affect, but maintains eye contact. No JVD, thyromegaly. Moist mucous membranes CARDIOVASCULAR: S1, S2, sinus rhythm. LUNGS: Air entry is equal bilaterally. Clear to auscultation wheezing or rales ABDOMEN: Positive bowel sounds, soft, nontender, nondistended. EXTREMITIES: No cyanosis, clubbing or pitting edema LABORATORY DATA: See below. MICROBIOLOGY: Please see below. ASSESSMENT/PLAN: 50-year-old female admitted to the inpatient mental health unit due to d epression by her history of suicide attempt tested positive on routine coronavirus testing on 08/01/2020. Patient complains of generalized muscle aches without fever, chills, cough, nausea, vomiting, diarrhea, decreased appetite, loss of taste or smell. She complains of some shortness of breath with ambulation but has been saturating 95-100% on room air. Patient otherwise denies any sore throat, changes in vision weight sleep habits bowel habits, dysuria, urgency, frequency, polyuria, polyphagia, upper or lower extremity weakness, paresthesias, headaches, diplopia, vertigo, tinnitus, hearing loss, chest pain, pressure, tightness, lightheadedness, dizziness. All other systems negative. Depression -Managed by primary psychiatric team Coronavirus infection -Patient is to be monitored for oxygen desaturations and worsening shortness of breath, which would be indication for treatment with intravenous remdesevir if oxygen saturation on room air with ambulation is less than 94%. -Will need to monitor patient's inflammatory markers closely, and may need to transfer to the coronavirus unit if meets criteria for treatment. -Droplet/contact isolation precautions. Hospitalist will follow this patient during the inpatient mental health unit admission until hospital discharge. Vital Signs Vital Signs Date Time Temp Pulse Resp B/P (MAP) Pulse Ox O2 Delivery O2 Flow Rate FiO2 08/02/20 07:30 87 140/71 08/02/20 07:30 98.8 12 95 Room Air Laboratory Data Microbiology Microbiology 08/01/20 Respiratory Virus Panel (PCR) (ELENA) - Final, Complete SARS-CoV-2 (COVID 19) Home Medications No Active Prescriptions or Reported Meds Allergies Coded Allergies: Sulfa (Sulfonamide Antibiotics) (Verified Allergy, Intermediate, RASH, ) clindamycin (Verified Allergy, Intermediate, RASH, 08/01/20) A-FIB/CHADSVASC A-FIB History Current/History of A-Fib/PAF?: No Current PO Anticoag Therapy: No Age/Risk Factor Scoring CHADSVASC: CHADSVASC Response (Comments) Value Age Risk Factor Age < 65 years old 0 Gender Risk Factor Female 1 Hx of CHF No 0 Hx of HTN No 0 Hx of Stroke/TIA/or VTE No 0 Hx of Diabetes No 0 Hx of Vascular Disease No 0 Total 1 Treatment Treatment ordered: NONE JAYCE ZAMORA MD Aug 02, 2020 16:47
[2020-08-02] MEDS: ESCITALOPRAM OXALATE 10 MG TAB (LEXAPRO) PO SCH (17:36)
[2020-08-02] MEDS: hydrOXYzine 50 MG TAB PO PRN (21:39)
[2020-08-02] MEDS: traZODone 50 MG TAB PO PRN (21:39)
[2020-08-03] MEDS ORDERED: OLANZapine ORAL DISINTEGRATING TAB 5MG PO PRN (08:10)
[2020-08-03 08:15] LABS: HEMATOCRIT 38.6 % (36.0-47.0); HEMOGLOBIN 12.4 g/dl (12.0-15.5); MEAN CORPUSCULAR HGB CONC 32.1 g/dl (32.0-36.5); MEAN CORPUSCULAR VOLUME 99.7 fl (80.0-96.0); PLATELET COUNT, AUTOMATED 218 10^3/uL (150-450); RED BLOOD COUNT 3.87 10^6/uL (4.00-5.40); WHITE BLOOD COUNT 5.6 10^3/uL (4.0-10.0)
[2020-08-03 08:24] LABS: PROTHROMBIN TIME 13.4 SECONDS (12.5-14.3)
[2020-08-03 08:25] LABS: PARTIAL THROMBOPLASTIN TIME 29.2 SECONDS (24.2-38.5)
[2020-08-03 08:28] LABS: D-DIMER QUANT 1103.26 ng/ml (<500)
[2020-08-03 08:45] LABS: ALBUMIN 2.8 GM/DL (3.2-5.2); ALT/SGPT 331 U/L (12-78); BILIRUBIN,DIRECT 0.1 MG/DL (0.0-0.2); BILIRUBIN,TOTAL 0.2 MG/DL (0.2-1.0); BLOOD UREA NITROGEN 12 MG/DL (7-18); C REACTIVE PROTEIN QUANTITATIV 0.49 MG/DL (0.00-0.30); CALCIUM LEVEL 8.6 MG/DL (8.5-10.1); CARBON DIOXIDE LEVEL 29 MEQ/L (21-32); CHLORIDE LEVEL 107 MEQ/L (98-107); CPK CREATINE PHOSPHOKINASE 47 U/L (26-192); CREATININE FOR GFR 0.53 MG/DL (0.55-1.30); FERRITIN 107 NG/ML (8-252); GLOMERULAR FILTRATION RATE > 60.0 (>51); GLUCOSE, FASTING 87 MG/DL (70-100); LDH LACTATE DEHYDROGENASE 190 U/L (84-246); MAGNESIUM LEVEL 1.6 MG/DL (1.8-2.4); NT-PRO BNP 574 PG/ML (<125); POTASSIUM SERUM 4.2 MEQ/L (3.5-5.1); SODIUM LEVEL 141 MEQ/L (136-145); TOTAL PROTEIN 5.9 GM/DL (6.4-8.2); TROPONIN I < 0.02 NG/ML (< 0.10)
[2020-08-03 09:00] LABS: BASOPHILS 1 % (0-1); EOSINOPHILS 5 % (0-3); LYMPHOCYTES 55 % (16-44); MONOCYTES 2 % (0-5); NEUTROPHILS 37 % (28-66); PLATELET ESTIMATE NORMAL (NORMAL)
[2020-08-03] MEDS ORDERED: OLANZapine 5 MG TAB PO SCH (09:00)
[2020-08-03] MEDS: ESCITALOPRAM OXALATE 10 MG TAB (LEXAPRO) PO SCH (09:07)
[2020-08-03] MEDS: THIAMINE 100 MG TAB PO SCH ×2 (09:07→22:04)
[2020-08-03] MEDS: MULTIVITAMINS/MINERALS THERAP 1 TAB PO SCH (09:07)
[2020-08-03] MEDS: FOLIC ACID 1 MG TAB PO SCH (09:07)
[2020-08-03] MEDS ORDERED: MAGNESIUM OXIDE 400MG TAB (MAG-OX) PO ONE (10:00)
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
[2020-08-03 17:48] VITALS: BP 147/89
[2020-08-03] MEDS: hydrOXYzine 50 MG TAB PO PRN (22:04)
[2020-08-03] MEDS: traZODone 50 MG TAB PO PRN (22:04)
[2020-08-04 07:40] VITALS: BP 140/90
[2020-08-04] MEDS: ESCITALOPRAM OXALATE 10 MG TAB (LEXAPRO) PO SCH (09:18)
[2020-08-04] MEDS: THIAMINE 100 MG TAB PO SCH ×2 (09:18→21:22)
[2020-08-04] MEDS: FOLIC ACID 1 MG TAB PO SCH (09:18)
[2020-08-04] MEDS: MULTIVITAMINS/MINERALS THERAP 1 TAB PO SCH (09:18)
[2020-08-04 10:21] LABS: INR 0.93; PARTIAL THROMBOPLASTIN TIME 28.8 SECONDS (24.2-38.5); PROTHROMBIN TIME 12.7 SECONDS (12.5-14.3)
[2020-08-04 10:31] LABS: FERRITIN 79 NG/ML (8-252); LDH LACTATE DEHYDROGENASE 179 U/L (84-246); NT-PRO BNP 365 PG/ML (<125)
[2020-08-04] MEDS: hydrOXYzine 50 MG TAB PO PRN ×2 (12:34→21:22)
[2020-08-04 16:37] VITALS: BP 130/98
--- NOTE | 2020-08-04 19:32 | MHIPNPDOC ---
[facility] Progress Note Progress Note DATE OF SERVICE: 08/04/20 HISTORY: HISTORY OF THE PRESENT ILLNESS: Patient is a 50 -year-old Single, Disabled, , female, who had taken an overdose in a possible suicide attempt. Patient is interviewed today and she is quite blocked and is unable to participate in the interview. Much of this MHE is obtained from the ED report, past psychiatric reports and history. PER ED REPORT: Friend found pt. unresponsive on couch with multiple pill bottles around her. Pt was brought to [facility] after friend called EMS. Pts friend informed EMS that the prescription bottles were hers that she had filled on July 24, 2019. These prescriptions include: Clonidine, Venlafaxine, Gabapentin pt. has also admitted to using heroin in conjunction with these medications as well as being intoxicated. Pt has had one similar suicide attempt in 2019 where she was hospitalized in [facility]. 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 Pt talks about how she took 4 Tylenol and drank Vodka on top of the 4 Tylenol and then switches to having 60 dollars in keys. Pt continues to switch from topic to topic and at one point she states "I'm sick of people gas-lighting me, gas-lighting is a real thing". Pt makes very little sense however, does state "I'm afraid to go home because there are safety issues". VITAL SIGNS: See below. CURRENT MEDICATIONS: See below. MENTAL STATUS EXAMINATION: Patient is a 50 -year-old Single, Disabled, , female, who had taken an overdose in a possible suicide attempt. She has fair eye contact, looks tired and dpressed Speech: Slurred, slow, with normal tone and volume Language skills are fair Thought processes including: linear Thought content: Reports feeling depressed but not as much compared to the day she was admitted. Denies SI/HI at this time Abstract reasoning, and computation: fair Description of associations:denies Description of abnormal or psychotic thoughts: denies Judgment: poor Insight: poor Orientation: alert to person and place Recent and remote memory: fair Attention span and concentration: poor Language: fair Fund of knowledge: average Mood: Depressed. Affect: Flat/Blunted DIAGNOSES: Major depressive disorder, recurrent, severe Generalized anxiety disorder PTSD Opiate Use Disorder Alcohol Used Disorder ASSESSMENT: Patient is requesting to have her Trazodone dose increased to 100 mgs PO QHS, she sys she feels tired she thinks it might be secondary to covid. She says she never believed in it but now she is concerned about spreading it to other people, including her daughter. She is asking about when would she be discharged, she says, she is getting tired of being inside of the room. She has delisa lapses, doesn't remember everything since her admission. hr BP has been running a little bit high and this might be secondary to her history of alcohol intake prior to her admission but she says she has had a lot of problems that she thinks might have contributed to this. MANAGEMENT PLAN: Continue with current treatment plan. TIME SPENT: 25 minutes. Vital Signs Vital Signs Date Time Temp Pulse Resp B/P (MAP) Pulse Ox O2 Delivery O2 Flow Rate FiO2 08/04/20 16:37 97.8 90 16 130/98 (109) 96 Room Air Laboratory Data 24H Labs Laboratory Tests 2 08/04/20 09:32: Prothrombin Time 12.7, Prothromb Time International Ratio 0.93, Activated Partial Thromboplast Time 28.8, Fibrinogen 259, Ferritin 79, Lactate Dehydrogenase 179, QM-Ypl-D-Type Natriuretic Peptide 365H Current Medications Current Medications Medications (Trade) Dose Ordered Sig/Namrata Route PRN Reason Start Time Stop Time Status Last Admin Dose Admin Acetaminophen (Tylenol Tab) 650 mg Q6HP PRN PO HEADACHE or DISCOMFORT 08/01/20 17:40 08/01/20 20:29 Al Hydrox/Mg Hydrox/Simethicone (Mylanta) 30 ml Q4HP PRN PO HEARTBURN/INDIGESTION 08/01/20 17:40 Escitalopram Oxalate (Lexapro) 10 mg DAILY PO 08/02/20 09:00 08/04/20 09:18 Folic Acid (Folic Acid) 1 mg DAILY PO 08/02/20 09:00 08/04/20 09:18 Home Med (Med Rec Complete!) ASDIRECTED XX 08/01/20 15:20 08/01/20 15:22 DC Hydroxyzine HCl (Atarax) 50 mg Q6HP PRN PO ANXIETY 08/02/20 17:00 08/04/20 12:34 Lorazepam (Ativan) 2 mg ASDIRECTED PRN PO SEE PROTOCOL 08/01/20 06:10 08/01/20 21:07 DC Lorazepam (Ativan) 2 mg ASDIRECTED PRN PO SEE PROTOCOL 08/01/20 22:30 Magnesium Hydroxide (Milk Of Magnesia) 30 ml DAILYPRN PRN PO CONSTIPATION 08/01/20 17:40 Multivitamins (Theragram-M) 1 tab DAILY PO 08/02/20 09:00 08/04/20 09:18 Olanzapine (ZyPREXA ZYDIS) 5 mg Q8HP PRN PO ANXIETY/AGITATION 08/03/20 08:10 Olanzapine (ZyPREXA) 5 mg BID PO 08/03/20 09:00 08/03/20 13:07 DC 08/03/20 09:07 Thiamine HCl (Thiamine HCl) 100 mg BID PO 08/02/20 09:00 08/05/20 08:59 08/04/20 09:18 Trazodone HCl (Desyrel) 50 mg QHSP PRN PO INSOMNIA 08/01/20 22:30 08/03/20 22:04 Allergies Coded Allergies: Sulfa (Sulfonamide Antibiotics) (Verified Allergy, Intermediate, RASH, 08/01/20) clindamycin (Verified Allergy, Intermediate, RASH, 08/01/20) MIRZA RUSHING MD Aug 04, 2020 18:57
[2020-08-04] MEDS: traZODone 100 MG TAB PO PRN (21:22)
[2020-08-05] MEDS: MULTIVITAMINS/MINERALS THERAP 1 TAB PO SCH (09:00)
[2020-08-05] MEDS: FOLIC ACID 1 MG TAB PO SCH (09:00)
[2020-08-05] MEDS: ESCITALOPRAM OXALATE 10 MG TAB (LEXAPRO) PO SCH (09:00)
--- NOTE | 2020-08-05 18:25 | MHIPNPDOC ---
[facility] Progress Note Progress Note DATE OF SERVICE: 08/05/20 HISTORY: HISTORY OF THE PRESENT ILLNESS: Patient is a 50 -year-old Single, Disabled, , female, who had taken an overdose in a possible suicide attempt. Patient is interviewed today and she is quite blocked and is unable to participate in the interview. Much of this MHE is obtained from the ED report, past psychiatric reports and history. PER ED REPORT: Friend found pt. unresponsive on couch with multiple pill bottles around her. Pt was brought to [facility] after friend called EMS. Pts friend informed EMS that the prescription bottles were hers that she had filled on July 24, 2019. These prescriptions include: Clonidine, Venlafaxine, Gabapentin pt. has also admitted to using heroin in conjunction with these medications as well as being intoxicated. Pt has had one similar suicide attempt in 2019 where she was hospitalized in [facility]. 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 Pt talks about how she took 4 Tylenol and drank Vodka on top of the 4 Tylenol and then switches to having 60 dollars in keys. Pt continues to switch from topic to topic and at one point she states "I'm sick of people gas-lighting me, gas-lighting is a real thing". Pt makes very little sense however, does state "I'm afraid to go home because there are safety issues". VITAL SIGNS: See below. CURRENT MEDICATIONS: See below. MENTAL STATUS EXAMINATION: Patient is a 50 -year-old Single, Disabled, , female, who had taken an overdose in a possible suicide attempt. She has fair eye contact, looks tired and dpressed Speech: Slurred, slow, with normal tone and volume Language skills are fair Thought processes including: linear Thought content: Still feeling depressed, although she is not back to normal she says.. Denies SI/HI at this time Abstract reasoning, and computation: fair Description of associations:denies Description of abnormal or psychotic thoughts: denies Judgment: limited Insight: limited Orientation: alert to person and place Recent and remote memory: fair Attention span and concentration: improving Fund of knowledge: average Mood: slightly depressed Affect: Flat/Blunted DIAGNOSES: Major depressive disorder, recurrent, severe Generalized anxiety disorder PTSD Opiate Use Disorder Alcohol Used Disorder ASSESSMENT: Patient is feeling better, she thinks medications are working. She feels depressed because "of my living situation". she says she will find out tomorrow if she has a place to go once she is discharged. MANAGEMENT PLAN: Continue with current treatment plan. TIME SPENT: 25 minutes. Vital Signs Vital Signs Date Time Temp Pulse Resp B/P (MAP) Pulse Ox O2 Delivery O2 Flow Rate FiO2 08/04/20 16:37 97.8 90 16 130/98 (109) 96 Room Air Current Medications Current Medications Medications (Trade) Dose Ordered Sig/Namrata Route PRN Reason Start Time Stop Time Status Last Admin Dose Admin Acetaminophen (Tylenol Tab) 650 mg Q6HP PRN PO HEADACHE or DISCOMFORT 08/01/20 17:40 08/01/20 20:29 Al Hydrox/Mg Hydrox/Simethicone (Mylanta) 30 ml Q4HP PRN PO HEARTBURN/INDIGESTION 08/01/20 17:40 Escitalopram Oxalate (Lexapro) 10 mg DAILY PO 08/02/20 09:00 08/05/20 09:00 Folic Acid (Folic Acid) 1 mg DAILY PO 08/02/20 09:00 08/05/20 09:00 Home Med (Med Rec Complete!) ASDIRECTED XX 08/01/20 15:20 08/01/20 15:22 DC Hydroxyzine HCl (Atarax) 50 mg Q6HP PRN PO ANXIETY 08/02/20 17:00 08/04/20 21:22 Lorazepam (Ativan) 2 mg ASDIRECTED PRN PO SEE PROTOCOL 08/01/20 06:10 08/01/20 21:07 DC Lorazepam (Ativan) 2 mg ASDIRECTED PRN PO SEE PROTOCOL 08/01/20 22:30 Magnesium Hydroxide (Milk Of Magnesia) 30 ml DAILYPRN PRN PO CONSTIPATION 08/01/20 17:40 Multivitamins (Theragram-M) 1 tab DAILY PO 08/02/20 09:00 08/05/20 09:00 Olanzapine (ZyPREXA ZYDIS) 5 mg Q8HP PRN PO ANXIETY/AGITATION 08/03/20 08:10 Olanzapine (ZyPREXA) 5 mg BID PO 08/03/20 09:00 08/03/20 13:07 DC 08/03/20 09:07 Thiamine HCl (Thiamine HCl) 100 mg BID PO 08/02/20 09:00 08/05/20 08:59 DC 08/04/20 21:22 Trazodone HCl (Desyrel) 50 mg QHSP PRN PO INSOMNIA 08/01/20 22:30 08/04/20 19:00 DC 08/03/20 22:04 Trazodone HCl (Desyrel) 100 mg QHSP PRN PO INSOMNIA 08/04/20 19:00 08/04/20 21:22 Allergies Coded Allergies: Sulfa (Sulfonamide Antibiotics) (Verified Allergy, Intermediate, RASH, 08/01/20) clindamycin (Verified Allergy, Intermediate, RASH, 08/01/20) MIRZA RUSHING MD Aug 05, 2020 18:25
[2020-08-05] MEDS: traZODone 100 MG TAB PO PRN (20:27)
[2020-08-05] MEDS: hydrOXYzine 50 MG TAB PO PRN (20:27)
[2020-08-06 05:54] VITALS: BP 137/80
[2020-08-06 07:56] LABS: INR 0.9; PARTIAL THROMBOPLASTIN TIME 30.3 SECONDS (24.2-38.5); PROTHROMBIN TIME 12.3 SECONDS (12.5-14.3)
[2020-08-06] MEDS: ESCITALOPRAM OXALATE 10 MG TAB (LEXAPRO) PO SCH (08:08)
[2020-08-06] MEDS: MULTIVITAMINS/MINERALS THERAP 1 TAB PO SCH (08:08)
[2020-08-06] MEDS: FOLIC ACID 1 MG TAB PO SCH (08:08)
[2020-08-06 08:11] LABS: FERRITIN 56 NG/ML (8-252); LDH LACTATE DEHYDROGENASE 183 U/L (84-246); NT-PRO BNP 68 PG/ML (<125)
[2020-08-06] MEDS ORDERED: LEXA1TAB PO (09:43)
[2020-08-06] MEDS ORDERED: HYDR50TA70 PO (09:43)
[2020-08-06] MEDS ORDERED: TRAZ-257 PO (09:43)
[2020-08-06] MEDS: hydrOXYzine 50 MG TAB PO PRN (09:50)
--- NOTE | 2020-08-06 10:55 | MHDSPDOC ---
[facility] Discharge Summary Discharge Summary DATE OF ADMISSION: Aug 01, 2020 at 17:39 DATE OF DISCHARGE: 08/06/2020. [id number] DISCHARGE DIAGNOSES: Major depressive disorder, recurrent, severe Generalized anxiety disorder PTSD Opiate Use Disorder Alcohol Used Disorder REASON FOR ADMISSION: Patient is a 50 -year-old Single, Disabled, , female, who had taken an overdose in a possible suicide attempt. Patient is interviewed today and she is quite blocked and is unable to participate in the interview. Much of this MHE is obtained from the ED report, past psychiatric reports and history. PER ED REPORT: Friend found pt. unresponsive on couch with multiple pill bottles around her. P t was brought to [facility] after friend called EMS. Pts friend informed EMS that the prescription bottles were hers that she had filled on July 24, 2019. These prescriptions include: Clonidine, Venlafaxine, Gabapentin pt. has also admitted to using heroin in conjunction with these medications as well as being intoxicated. Pt has had one similar suicide attempt in 2019 where she was hos pitalized in Inpatient [facility] Health. 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 Pt talks about how she took 4 Tylenol and drank Vodka on top of the 4 Tylenol and then switches to having 60 dollars in keys. Pt continues to switch from topic to topic and at one point she states "I'm sick of people gas-lighting me, gas-lighting is a real thing". Pt makes very little sense however, does state "I'm afraid to go home because there are safety issues". CONSULTANTS INVOLVED: See Medical H + P by Hospitalist TREATMENT AND PROGRESS ON THE UNIT: Patient was admitted to the [facility] on a 9.39 legal status he was afforded the following treatment modalities: 1) Individual Therapy 2) Group Therapy 3) Medication Management 4) Milieu Therapy 5) Safe Environment HOSPITAL COURSE: Patient was admitted to [facility] on a 9.39 legal status. She was not able to answer questions in her initial interview because she was obtunded and having COVID symptoms. When she was more oriented and alert she only requested Lexapro, denied depression and anxiety or any suicidal thinking but she was disengaged in the interview and didn't participate in her treatment for several days. In today's session patient has improved from her COVID symptoms and is requesting discharge. She reports no depressive or anxiety symptoms and denies any thoughts of self-harm. She was motivated to return home and states that she has plenty of supports. She was on the phone speaking to a friend and was making plans for her discharge. Per staff, patient had improved and no longer had any psychiatric symptoms that met criteria for involuntary admission. DISCHARGE ASSESSMENT: In today's interview, patient is alert and oriented, pts dress is appropriate. Hygiene and grooming is well-kempt. Smiles on approach and is pleasant and engaged in the interview. Denies depression and anxiety. Denies suicidal and homicidal ideation, planning or intent. Denies and is not observed with venkatesh, psychotic symptoms of delusions, bizarre thinking, obsessions, paranoia, ruminations illogical thoughts, flight of ideas or having poor insight and judgement. Patient has normal mentation, declines further hospitalization on a voluntary status and meets criteria for discharge today. Patient encouraged to return to hospital if symptoms worsen or change and encouraged to call unit if he/she/they needs to speak to provider for questions regarding medications or care. MENTAL STATUS EXAMINATION ON DISCHARGE: Patient is a 50 -year-old Single, Disabled, , female, who had taken an overdose in a possible suicide attempt. Speech: Is fluid, conversant, normal rate, tone and volume Language skills are intact Thought processes including: linear and goal oriented Thought content: denies depression and anxiety. Denies suicidal/homicidal ideation, planning or intent. Abstract reasoning, and computation: fair Description of associations: denies, none observed Description of abnormal or psychotic thoughts: denies, none observed. Judgment: fair Insight: fair Orientation: alert and oriented to person, place, time and situation Recent and remote memory: intact Attention span and concentration: good Language: expansive Fund of knowledge: average Mood: Euthymic Mood Affect: reactive MEDICATIONS ON DISCHARGE: See Medication Reconciliation PLAN/FOLLOWUP ARRANGEMENTS: Patient is being discharged to her home. She is following up at [facility] The amount of time spent in the coordination of care for this patient was approximately 25 minutes. ETOH/Disorder Med Rx ETOH/DRUG DISORDER RX: Offrd @ d/c & pt refused Vital Signs/I&Os Vital Signs Date Time Temp Pulse Resp B/P (MAP) Pulse Ox O2 Delivery O2 Flow Rate FiO2 08/06/20 05:54 97.2 90 16 137/80 (99) 98 Room Air Laboratory Data Labs 24H Laboratory Tests 2 08/06/20 07:12: Prothrombin Time 12.3, Prothromb Time International Ratio 0.90, Activated Partial Thromboplast Time 30.3, Fibrinogen 243, Ferritin 56, Lactate Dehydrogenase 183, TC-Kwh-T-Type Natriuretic Peptide 68 Microbiology Microbiology 08/01/20 Respiratory Virus Panel (PCR) (ELENA) - Final, Complete SARS-CoV-2 (COVID 19) Medications Scheduled Escitalopram Oxalate (Lexapro) 10 Mg Tablet, 10 MG PO DAILY for Depression, #7 Scheduled PRN Hydroxyzine HCl (Hydroxyzine HCl) 50 Mg Tablet, 50 MG PO BIDP PRN for ANXIETY, #14 Trazodone HCl (Trazodone HCl) 100 Mg Tablet, 100 MG PO QHSP PRN for INSOMNIA, #7 Allergies Coded Allergies: Sulfa (Sulfonamide Antibiotics) (Verified Allergy, Intermediate, RASH, 08/01/20) clindamycin (Verified Allergy, Intermediate, RASH, 08/01/20) ONEIDA ALATORRE SERGEANT MISSILE CREWMAN Aug 06, 2020 09:49
== END 2020-08-06 11:00 | disposition home or self-care (01) | DRG 751 ==
LOC: M ED 00:56 → M ED INP 17:39 → M PSY 21:06
PROVIDERS: ADMIT Psychiatry & Neurology Psychiatry; ATTEND Psychiatry & Neurology Psychiatry
DX: F33.2 Major depressive disorder, recurrent severe without psychotic features (principal); U07.1 COVID-19; F43.10 Post-traumatic stress disorder, unspecified; F11.90 Opioid use, unspecified, uncomplicated; F10.10 Alcohol abuse, uncomplicated; Z88.2 Allergy status to sulfonamides; Z88.8 Allergy status to other drugs, medicaments and biological substances; F17.210 Nicotine dependence, cigarettes, uncomplicated

== ENCOUNTER 2020-10-16 18:35 | Inpatient (IN) | payer MEDICAID, OTHER ==
[~2020-10-16] VITALS: Ht 165.1 cm; Wt 57.3 kg
[~2020-10-16 18:35] MED LIST changes: +OLAN1TAB16 PO; -OLAN5TAB PO
[2020-10-16] MEDS ORDERED: SODIUM CHLORIDE 0.9% 1000ML IV SCH (19:00)
[2020-10-16] MEDS ORDERED: KETOROLAC 30 MG/ML 1ML VIAL IV ONE (19:15)
[2020-10-16] MEDS ORDERED: VANCOMYCIN HCL 1,000 MG, VIAL MATE ADAPTER 1 EACH in NS 250 ML IV SCH (19:30)
[2020-10-16 19:40] LABS: BLOOD UREA NITROGEN 7 MG/DL (7-18); CALCIUM LEVEL 9.1 MG/DL (8.5-10.1); CARBON DIOXIDE LEVEL 25 MEQ/L (21-32); CHLORIDE LEVEL 104 MEQ/L (98-107); CREATININE FOR GFR 0.58 MG/DL (0.55-1.30); GLOMERULAR FILTRATION RATE > 60.0 (>51); GLUCOSE, FASTING 126 MG/DL (70-100); POTASSIUM SERUM 3.5 MEQ/L (3.5-5.1); SODIUM LEVEL 136 MEQ/L (136-145)
[2020-10-16 19:47] LABS: BASO # 0.1 10^3/uL (0.0-0.2); BASO % 0.3 % (0.0-1.0); EOS % 0.1 % (0.0-3.0); HEMATOCRIT 41.9 % (36.0-47.0); HEMOGLOBIN 14.1 g/dl (12.0-15.5); LYMPH % 5.6 % (24.0-44.0); MEAN CORPUSCULAR HEMOGLOBIN 32.5 pg (27.0-33.0); MEAN CORPUSCULAR HGB CONC 33.7 g/dl (32.0-36.5); MEAN CORPUSCULAR VOLUME 96.5 fl (80.0-96.0); MONO # 1.5 10^3/uL (0.0-0.8); MONO % 7.9 % (2.0-8.0); NEUTROPHILS # 15.7 10^3/uL (1.5-8.5); NEUTROPHILS % 85.1 % (36.0-66.0); PLATELET COUNT, AUTOMATED 264 10^3/uL (150-450); RED BLOOD COUNT 4.34 10^6/uL (4.00-5.40)
[2020-10-16 19:48] LABS: WHITE BLOOD COUNT 18.4 10^3/uL (4.0-10.0)
--- NOTE | 2020-10-16 20:26 | REP ---
INDICATION: leg injury COMPARISON: None. TECHNIQUE: AP and lateral right tibia/fibula FINDINGS: The osseous structures and joint spaces are intact and normal. There is no evidence for acute fracture or dislocation. Surrounding soft tissues are unremarkable. No subcutaneous emphysema or radiodense foreign body. IMPRESSION: . No acute fracture or dislocation. <Electronically signed by Ricardo Matthews > 10/16/202021
[2020-10-16] MEDS ORDERED: LR 1,000 ML IV ONE (20:50)
[2020-10-16] MEDS ORDERED: MOM 30ML SUSPENSION UDC PO PRN (21:25)
[2020-10-16] MEDS ORDERED: MAALOX 30 ML SUSP *UDC PO PRN (21:25)
[2020-10-16] MEDS ORDERED: HYDR50TA70 PO (21:26)
[2020-10-16] MEDS ORDERED: ASPI-264 PO (21:26)
[2020-10-16] MEDS ORDERED: LEXA1TAB PO (21:26)
[2020-10-16] MEDS ORDERED: TRAZ-257 PO (21:26)
--- NOTE | 2020-10-16 21:43 | HPEPDOC ---
[facility] Medical History & Physical Date of Admission Oct 16, 2020 Date of Service: Oct 16, 2020 Primary Care Physician: A Attending Physician: NADIYA GOLDEN DO History and Physical CHIEF COMPLAINT: Right lower extremity redness, swelling and pain HISTORY OF PRESENT ILLNESS: Ms. Douglas is a 50-year-old female who presented to the ER with complaints of 4 days of increasing erythema, swelling and pain at the right lower extremity. She hit her leg on a metal piece extending from her recliner at a friend's house. The area started to deshawn and over the next 24 hours, but she thought it would improve. He got to the point where she could no longer tolerate the pain and so she presented to the ER. She complained of chills, nausea and vomiting 1. On initial evaluation she was found to have a temp of 100.2. White blood cell count was elevated at greater than 18,000. She was tachycardic with heart rate of 128. Blood pressure was 119/70. She is satting 98% on room air. X-ray of the right lower extremity showed no acute fracture. She did have some mild elevation of glucose at 126. She was given a dose of vancomycin in the ER. PAST MEDICAL HISTORY: 1. Anxiety. 2. Depression with previous suicide attempt earlier this year. 3. Cervical dysplasia. 4. Gastroesophageal reflux disease. 5. Hepatitis C 6. Covid PAST SURGICAL HISTORY: 1. Cervical LEEP 2 SOCIAL HISTORY: Tobacco use: One pack per day ETOH: One tall can of beer a couple times a week Illicit drug use: Patient admits to marijuana use Patient lives with: FAMILY HISTORY: Patient's mother at age of 62 secondary to throat cancer. She also had a history of hypertension. Her father committed suicide at 45. REVIEW OF SYSTEMS: Complete 10 point review systems is negative except as noted above PHYSICAL EXAMINATION: Patient is seen in the ER, lying on her right side on the stretcher .. She is alert and oriented x 3. HEENT is WNL. Neck is supple. Lungs are clear to auscultation. Heart regular rate and rhythm without murmur. Abdomen is soft, non-tender to palpation with bowel sounds positive. Extremities with good ROM and strength equal bilaterally. Right lower extremity with intense erythema from ankle to distal to her knee. Erythema noted. She has 2 significant lacerations at the pretibial area. Both with eschar with some pus draining from the distal laceration. Very tender to touch. Pedal pulses are positive. Skin is warm and dry with no other obvious rash or lesion. Neuro: grossly intact. Psyc h: She is a little bit irritable but cooperative. ASSESSMENT AND PLAN: 1. Right lower extremity cellulitis secondary to acute traumatic laceration. We'll continue the patient on vancomycin and cefepime. Initiate dressing changes with Bactroban and dry gauze. If area does not improve, patient may benefit from surgical consult for possible debridement. 2. Leukocytosis secondary to right lower extremity cellulitis. Plan as outlined above. Recheck labs in the morning. 3. Hyperglycemia with no history of diabetes. Check HbA1c in the morning. Monitor blood glucose with daily labs. 4. Major depressive disorder and anxiety. Continue Lexapro, hydroxyzine and traz odone. Continue supportive care. 5. DVT prophylaxis. Lovenox. CODE STATUS: CODE STATUS was discussed with the patient desires to be considered full code. She states her daughter would act as her surrogate if she were unable to make her own decisions. Patient is considered high risk for further deterioration including possible development of septic shock. . She is admitted as inpatient expected to remain at least 2-3 midnights. Vital Signs Vital Signs Date Time Temp Pulse Resp B/P (MAP) Pulse Ox O2 Delivery O2 Flow Rate FiO2 10/16/20 20:32 111 18 119/70 (86) 98 Room Air 10/16/20 18:46 100.2 Laboratory Data Labs 24H Laboratory Tests 2 10/16/20 19:01: Immature Granulocyte % (Auto) 1.0, Neutrophils (%) (Auto) 85.1H, Lymphocytes (%) (Auto) 5.6L, Monocytes (%) (Auto) 7.9, Eosinophils (%) (Auto) 0.1, Basophils (%) (Auto) 0.3, Neutrophils # (Auto) 15.7H, Lymphocytes # (Auto) 1.0L, Monocytes # (Auto) 1.5H, Eosinophils # (Auto) 0.0, Basophils # (Auto) 0.1, Nucleated Red Blood Cells % (auto) 0.0, Anion Gap 7L, Glomerular Filtration Rate > 60.0, Lactic Acid Level 2.0, Calcium Level 9.1 10/16/20 19:09: CBC/BMP Laboratory Tests 10/16/20 19:01 Microbiology Microbiology 10/16/20 Blood Culture, Received Pending 10/16/20 Blood Culture, Received Pending Home Medications Scheduled Escitalopram Oxalate (Lexapro) 10 Mg Tablet, 10 MG PO DAILY Trazodone HCl (Trazodone HCl) 100 Mg Tablet, 100 MG PO QHS Scheduled PRN Aspirin (Aspirin) 325 Mg Tablet, 650 MG PO Q6H PRN for PAIN LEVEL 1-5 Hydroxyzine HCl (Hydroxyzine HCl) 50 Mg Tablet, 50 MG PO BID PRN for ANXIETY Allergies Coded Allergies: Sulfa (Sulfonamide Antibiotics) (Verified Allergy, Intermediate, RASH, 08/01/20) clindamycin (Verified Allergy, Intermediate, RASH, 08/01/20) A-FIB/CHADSVASC A-FIB History Current/History of A-Fib/PAF?: No REMINGTON SORTO Oct 16, 2020 21:43
[2020-10-16 22:00] VITALS: BP 143/91
[2020-10-16] MEDS: MUPIROCIN 2% OINT 22 GM TUBE TOP SCH (22:02)
[2020-10-16] MEDS: CEFEPIME HCL 2 GM in D5W MINI-BAG PLUS 50 ML IV SCH (22:02)
[2020-10-16] MEDS: KETOROLAC 30 MG/ML 1ML VIAL IV PRN (22:02)
[2020-10-16 22:04] LABS: RSV AMPLIFICATION NEGATIVE (NEGATIVE)
[2020-10-17] MEDS ORDERED: NORCO, ANEXSIA 5/325MG TABLET (HYDROcodone/ACETAMINOPHEN) PO ONE (00:30)
[2020-10-17] MEDS: NS 1,000 ML IV SCH ×3 (00:37→16:00)
[2020-10-17] MEDS: ONDANSETRON 4MG/2ML VIAL IV PRN ×2 (00:37→21:54)
[2020-10-17] MEDS: VANCOMYCIN HCL 750 MG, VIAL MATE ADAPTER 1 EACH in NS 250 ML IV SCH ×3 (05:22→21:46)
[2020-10-17 06:00] VITALS: BP 111/73
[2020-10-17 06:36] LABS: HEMATOCRIT 39.4 % (36.0-47.0); HEMOGLOBIN 12.8 g/dl (12.0-15.5); MEAN CORPUSCULAR HEMOGLOBIN 31.8 pg (27.0-33.0); MEAN CORPUSCULAR HGB CONC 32.5 g/dl (32.0-36.5); MEAN CORPUSCULAR VOLUME 97.8 fl (80.0-96.0); PLATELET COUNT, AUTOMATED 204 10^3/uL (150-450); RED BLOOD COUNT 4.03 10^6/uL (4.00-5.40)
[2020-10-17 07:00] LABS: BLOOD UREA NITROGEN 9 MG/DL (7-18); CALCIUM LEVEL 8.2 MG/DL (8.5-10.1); CARBON DIOXIDE LEVEL 27 MEQ/L (21-32); CHLORIDE LEVEL 107 MEQ/L (98-107); CREATININE FOR GFR 0.59 MG/DL (0.55-1.30); GLOMERULAR FILTRATION RATE > 60.0 (>51); GLUCOSE, FASTING 124 MG/DL (70-100); MAGNESIUM LEVEL 1.6 MG/DL (1.8-2.4); POTASSIUM SERUM 4.1 MEQ/L (3.5-5.1); SODIUM LEVEL 138 MEQ/L (136-145)
[2020-10-17 07:03] LABS: HEMOGLOBIN A1c 5.2 %
[2020-10-17] MEDS: ESCITALOPRAM OXALATE 10 MG TAB (LEXAPRO) PO SCH (09:04)
[2020-10-17] MEDS: ENOXAPARIN 40MG/0.4ML SYRINGE (J1650 PER 10MG) SC SCH (09:05)
[2020-10-17] MEDS: CEFEPIME HCL 2 GM in D5W MINI-BAG PLUS 50 ML IV SCH ×2 (09:05→23:35)
[2020-10-17] MEDS: MUPIROCIN 2% OINT 22 GM TUBE TOP SCH ×2 (09:06→21:00)
[2020-10-17] MEDS: ACETAMINOPHEN TAB 650MG DOSE (2X325MG) PO PRN ×2 (09:15)
--- NOTE | 2020-10-17 11:50 | IPNPDOC ---
Text Note Date of Service The patient was seen on 10/17/20. NOTE Subjective: -No acute events Objective: Vitals: see below Head: NCAT EENT: EOMI, anicteric, MMM Pulm: CTAB CardiacL RRR, no m/r/g Abd: normoactive sounds, soft, NTND Ext: RLE with draining laceration with surrounding erythema, with bandaging in place, LLE wnl. WWP Pysch AOx3 Labs: Reviewed WBC 14 Hgb 12.8 platelets 204 na 138 K 4.1 Cr 0.59 mag 1.6 ASSESSMENT: 50-year-old W a history of PSUD, HCV, GED, depression and anxiety admitted for cellulitis i/s/o recent RLE trauma with draining laceration. Right lower extremity cellulitis secondary to acute traumatic laceration. -On vancomycin and cefepime, send drainage for culture and MRSA swab for antibiotic de-escalation -Dressing changes with Bactroban and dry gauze. -If area does not improve, will place surgical consult for possible debridement Hyperglycemia with no history of diabetes. -Check HbA1c in the morning. -Monitor blood glucose with daily labs. Major depressive disorder and anxiety. -Continue Lexapro, hydroxyzine and trazodone. DVT ppx: lovenox VS,Fishbone, I+O VS, Fishbone, I+O Laboratory Tests 10/16/20 19:01 10/17/20 06:03 Vital Signs Date Time Temp Pulse Resp B/P (MAP) Pulse Ox O2 Delivery O2 Flow Rate FiO2 10/17/20 06:00 99.0 109 20 111/73 (86) 97 Room Air 10/17/20 04:23 2.0 I&O- Last 24 Hours up to 6 AM 10/17/20 06:00 Intake Total 2320 ml Balance 2320 ml DALE PALM MD Oct 17, 2020 08:46
[2020-10-17] MEDS: KETOROLAC 30 MG/ML 1ML VIAL IV PRN ×2 (12:52→21:46)
[2020-10-17 14:00] VITALS: BP 101/57
[2020-10-17] MEDS ORDERED: VANCOMYCIN HCL 500 MG in D5W MINI-BAG PLUS 100 ML IV ONE (15:00)
[2020-10-17] MEDS: hydrOXYzine 50 MG TAB PO PRN ×2 (20:29)
[2020-10-17] MEDS: traZODone 100 MG TAB PO SCH ×2 (21:46)
[2020-10-17 22:00] VITALS: BP 145/88
[2020-10-18] MEDS: NS 1,000 ML IV SCH ×2 (00:58→09:47)
[2020-10-18] MEDS: VANCOMYCIN HCL 750 MG, VIAL MATE ADAPTER 1 EACH in NS 250 ML IV SCH (05:15)
[2020-10-18 06:00] VITALS: BP 142/86
[2020-10-18] MEDS: ESCITALOPRAM OXALATE 10 MG TAB (LEXAPRO) PO SCH (09:43)
[2020-10-18] MEDS: ENOXAPARIN 40MG/0.4ML SYRINGE (J1650 PER 10MG) SC SCH (09:44)
[2020-10-18] MEDS: hydrOXYzine 50 MG TAB PO PRN ×3 (09:44→22:39)
[2020-10-18] MEDS: ACETAMINOPHEN TAB 650MG DOSE (2X325MG) PO PRN ×3 (09:45→22:39)
[2020-10-18] MEDS: KETOROLAC 30 MG/ML 1ML VIAL IV PRN ×3 (09:46→22:40)
[2020-10-18] MEDS: MUPIROCIN 2% OINT 22 GM TUBE TOP SCH ×2 (09:47→20:45)
[2020-10-18] MEDS: CEFEPIME HCL 2 GM in D5W MINI-BAG PLUS 50 ML IV SCH ×2 (09:47→21:40)
[2020-10-18 12:21] LABS: HEMOGLOBIN 11.5 g/dl (12.0-15.5); MEAN CORPUSCULAR HEMOGLOBIN 32.2 pg (27.0-33.0); MEAN CORPUSCULAR HGB CONC 32.9 g/dl (32.0-36.5); PLATELET COUNT, AUTOMATED 198 10^3/uL (150-450); RED BLOOD COUNT 3.57 10^6/uL (4.00-5.40); WHITE BLOOD COUNT 12.1 10^3/uL (4.0-10.0)
[2020-10-18 12:50] LABS: BLOOD UREA NITROGEN 7 MG/DL (7-18); CALCIUM LEVEL 8.1 MG/DL (8.5-10.1); CARBON DIOXIDE LEVEL 24 MEQ/L (21-32); CHLORIDE LEVEL 110 MEQ/L (98-107); CREATININE FOR GFR 0.51 MG/DL (0.55-1.30); GLOMERULAR FILTRATION RATE > 60.0 (>51); GLUCOSE, FASTING 105 MG/DL (70-100); MAGNESIUM LEVEL 1.6 MG/DL (1.8-2.4); POTASSIUM SERUM 3.5 MEQ/L (3.5-5.1); SODIUM LEVEL 142 MEQ/L (136-145)
[2020-10-18] MEDS ORDERED: VANCOMYCIN HCL 1,000 MG, VIAL MATE ADAPTER 1 EACH in NS 250 ML IV SCH (13:15)
--- NOTE | 2020-10-18 13:15 | IPNPDOC ---
Text Note Date of Service The patient was seen on 10/18/20. NOTE Subjective: -No acute events Objective: Vitals: see below Head: NCAT EENT: EOMI, anicteric, MMM Pulm: CTAB CardiacL RRR, no m/r/g Abd: normoactive sounds, soft, NTND Ext: RLE w/ persisting and even may worsening surrounding erythema, LLE wnl. WWP Pysch AOx3 Labs: Reviewed, pending AM labs Micro: pending wound culture ASSESSMENT: 50-year-old W a history of PSUD, HCV, GED, depression and anxiety admitted for cellulitis i/s/o recent RLE trauma with draining laceration. Right lower extremity cellulitis secondary to acute traumatic laceration. -On vanc/cefepime -Nursing to please send drainage for culture -Dressing changes with Bactroban and dry gauze. -If area does not improve, will place surgical consult for possible debridement Major depressive disorder and anxiety. -Continue Lexapro, hydroxyzine increased from BID to Q6H and trazodone. DVT ppx: lovenox VS,Fishbone, I+O VS, Fishbone, I+O Vital Signs Date Time Temp Pulse Resp B/P (MAP) Pulse Ox O2 Delivery O2 Flow Rate FiO2 10/18/20 06:00 99.6 100 16 142/86 (104) 98 Room Air 10/17/20 04:23 2.0 I&O- Last 24 Hours up to 6 AM 10/18/20 06:00 Intake Total 3850 ml Output Total 1600 ml Balance 2250 ml DALE PALM MD Oct 18, 2020 10:08
[2020-10-18] MEDS ORDERED: MAG SULF 1GM/100ML (MAG RUN) 1 GM in IV 1 EA IV ONE (13:30)
[2020-10-18] MEDS ORDERED: VANCOMYCIN HCL 750 MG, VIAL MATE ADAPTER 1 EACH in NS 250 ML IV SCH (15:00)
[2020-10-18 15:05] VITALS: BP 99/70
[2020-10-18] MEDS: VANCOMYCIN HCL 1,000 MG, VIAL MATE ADAPTER 1 EACH in NS 250 ML IV SCH ×3 (15:52→22:39)
[2020-10-18] MEDS ORDERED: TETANUS/DIPHTHERIA TOX ADSORB ADULT 0.5ML SYR/VIAL (90714) IM ONE (16:00)
[2020-10-18] MEDS ORDERED: VANCOMYCIN HCL 500 MG in D5W MINI-BAG PLUS 100 ML IV ONE (16:00)
[2020-10-18] MEDS: traZODone 100 MG TAB PO SCH (20:44)
[2020-10-18 22:00] VITALS: BP 137/88
[2020-10-19 06:12] VITALS: BP 146/87
[2020-10-19 06:54] LABS: HEMATOCRIT 35.5 % (36.0-47.0); HEMOGLOBIN 11.7 g/dl (12.0-15.5); MEAN CORPUSCULAR HEMOGLOBIN 32.4 pg (27.0-33.0); MEAN CORPUSCULAR VOLUME 98.3 fl (80.0-96.0); PLATELET COUNT, AUTOMATED 212 10^3/uL (150-450); RED BLOOD COUNT 3.61 10^6/uL (4.00-5.40)
[2020-10-19] MEDS: ACETAMINOPHEN TAB 650MG DOSE (2X325MG) PO PRN ×3 (06:57→18:33)
[2020-10-19] MEDS: hydrOXYzine 50 MG TAB PO PRN ×2 (06:58→18:33)
[2020-10-19] MEDS: VANCOMYCIN HCL 1,000 MG, VIAL MATE ADAPTER 1 EACH in NS 250 ML IV SCH (06:58)
[2020-10-19 07:30] LABS: BLOOD UREA NITROGEN 9 MG/DL (7-18); CALCIUM LEVEL 8.1 MG/DL (8.5-10.1); CARBON DIOXIDE LEVEL 26 MEQ/L (21-32); CHLORIDE LEVEL 111 MEQ/L (98-107); GLOMERULAR FILTRATION RATE > 60.0 (>51); GLUCOSE, FASTING 84 MG/DL (70-100); POTASSIUM SERUM 3.8 MEQ/L (3.5-5.1); SODIUM LEVEL 143 MEQ/L (136-145)
[2020-10-19] MEDS: ESCITALOPRAM OXALATE 10 MG TAB (LEXAPRO) PO SCH (08:05)
[2020-10-19] MEDS: KETOROLAC 30 MG/ML 1ML VIAL IV PRN ×2 (08:06→18:32)
[2020-10-19] MEDS: MUPIROCIN 2% OINT 22 GM TUBE TOP SCH ×2 (08:07→21:58)
[2020-10-19] MEDS: ENOXAPARIN 40MG/0.4ML SYRINGE (J1650 PER 10MG) SC SCH (08:07)
[2020-10-19] MEDS: CEFEPIME HCL 2 GM in D5W MINI-BAG PLUS 50 ML IV SCH ×2 (09:38→21:58)
--- NOTE | 2020-10-19 11:26 | IPNPDOC ---
Text Note Date of Service The patient was seen on 10/19/20. NOTE Subjective: -No acute events Objective: Vitals: see below Head: NCAT EENT: EOMI, anicteric, MMM Pulm: CTAB CardiacL RRR, no m/r/g Abd: normoactive sounds, soft, NTND Ext: RLE w/ persisting and even may worsening surrounding erythema, LLE wnl. WWP Pysch AOx3 Labs: WBC 9 Hgb 11.7 platelets 212 na 143 K 3.8 Cr 0.5 mag pending Micro: Wound Cx pending BCx NGTD ASSESSMENT: 50-year-old W a history of PSUD, HCV, GED, depression and anxiety admitted for cellulitis i/s/o recent RLE trauma with draining laceration. Right lower extremity cellulitis secondary to acute traumatic laceration. -On cefepime, day 3 -f/u wound culture -negative BCx thus far -Dressing changes with Bactroban and dry gauze. -improving leukocytosis -elevate RLE when supine or sitting Major depressive disorder and anxiety. -Continue Lexapro, hydroxyzine increased from BID to Q6H and trazodone. DVT ppx: lovenox VS,Fishbone, I+O VS, Fishbone, I+O Laboratory Tests 10/18/20 12:03 10/19/20 06:44 Vital Signs Date Time Temp Pulse Resp B/P (MAP) Pulse Ox O2 Delivery O2 Flow Rate FiO2 10/19/20 06:12 97.3 83 20 146/87 (106) 97 Room Air 10/17/20 04:23 2.0 I&O- Last 24 Hours up to 6 AM 10/19/20 06:00 Intake Total 3750 ml Output Total 0 ml Balance 3750 ml DALE PALM MD Oct 19, 2020 07:42
[2020-10-19] MEDS: ONDANSETRON 4MG/2ML VIAL IV PRN (11:44)
[2020-10-19 14:49] VITALS: BP 124/84
[2020-10-19 20:00] VITALS: BP 171/96
[2020-10-19] MEDS: traZODone 100 MG TAB PO SCH (21:57)
[2020-10-20] MEDS: ACETAMINOPHEN TAB 650MG DOSE (2X325MG) PO PRN (05:36)
[2020-10-20] MEDS: hydrOXYzine 50 MG TAB PO PRN (05:36)
[2020-10-20 06:11] VITALS: BP 146/81
[2020-10-20 06:45] LABS: BLOOD UREA NITROGEN 10 MG/DL (7-18); GLUCOSE, FASTING 89 MG/DL (70-100)
[2020-10-20 06:46] LABS: CARBON DIOXIDE LEVEL 26 MEQ/L (21-32); CHLORIDE LEVEL 108 MEQ/L (98-107); CREATININE FOR GFR 0.52 MG/DL (0.55-1.30); GLOMERULAR FILTRATION RATE > 60.0 (>51); POTASSIUM SERUM 3.6 MEQ/L (3.5-5.1); SODIUM LEVEL 140 MEQ/L (136-145)
[2020-10-20] MEDS ORDERED: amLODIPine 5 MG TAB PO SCH ×2 (09:00)
[2020-10-20] MEDS: KETOROLAC 30 MG/ML 1ML VIAL IV PRN (10:20)
[2020-10-20] MEDS: ENOXAPARIN 40MG/0.4ML SYRINGE (J1650 PER 10MG) SC SCH (10:20)
[2020-10-20] MEDS: ESCITALOPRAM OXALATE 10 MG TAB (LEXAPRO) PO SCH (10:20)
[2020-10-20] MEDS: CEFEPIME HCL 2 GM in D5W MINI-BAG PLUS 50 ML IV SCH (10:22)
[2020-10-20] MEDS: MUPIROCIN 2% OINT 22 GM TUBE TOP SCH (10:22)
[2020-10-20] MEDS ORDERED: ACET1TAB55 PO (12:55)
[2020-10-20] MEDS ORDERED: CEPH500T PO (12:55)
--- NOTE | 2020-10-20 13:03 | DS.PDOC ---
Discharge Summary General Date of Admission Oct 16, 2020 at 21:25 Date of Discharge 10/20/20 Discharge Summary PROCEDURES PERFORMED DURING STAY: [None]. COMPLICATIONS/CHIEF COMPLAINT: Cellulitis, Sepsis. HISTORY OF PRESENT ILLNESS: Ms. Douglas is a 50-year-old female who presented to the ER with complaints of 4 days of increasing erythema, swelling and pain at the right lower extremity. She hit her leg on a metal piece extending from her recliner at a friend's house. The area started to deshawn and over the next 24 hours, but she thought it would improve. He got to the point where she could no longer tolerate the pain and so she presented to the ER. She complained of chills, nausea and vomiting 1. On initial evaluation she was found to have a temp of 100.2. White blood cell count was elevated at greater than 18,000. She was tachycardic with heart rate of 128. Blood pressure was 119/70. She is satting 98% on room air. X-ray of the right lower extremity showed no acute fracture. She did have some mild elevation of glucose at 126. She was given a dose of vancomycin in the ER. HOSPITAL COURSE: Right lower extremity cellulitis secondary to acute traumatic laceration. - s/p 3 days cefepime - wound culture positive for Group A strep. Sensitivities available, switch to PO keflex 500 mg PO QID x 7 days - Blood Cx negative at 72 hours. - Dressing changes with Bactroban and dry gauze. - Leukocytosis resolved. -elevate RLE when supine or sitting Major depressive disorder and anxiety. -Continue Lexapro, hydroxyzine and trazodone on home dosage. - denies SI Epigastric discomfort - suspect GERD - trop < 0.02 - EKG showing NSR, no acute ischemic changes - pain resolved after GI cocktail - added pantoprazole on DC HTN - BP elevated to 150/90 - started patient on amlodipine 5 mg daily on DC DISCHARGE MEDICATIONS: Please see below. ALLERGIES: Please see below. PHYSICAL EXAMINATION ON DISCHARGE: VITAL SIGNS: please see below General: NAD, comfortable HEENT: PERRLA, EOMI, sclerae clear Neck: supple, normal ROM, no JVD Respiratory: lungs CTAB, no wheeze, no rales, no crackles CVS: RRR, normal S1, S2, no murmurs Abdo: soft, no masses, no hepatosplenomegaly, BS+, no rebound tenderness Skin: R leg erythema much improved from prior demarcation from 10/19/20. Laceration tender to touch, but no discrete abscess seen. No longer purulent. Dried blood at lac. MSK: no joint deformities, normal ROM Neuro: no focal neuro deficits, moving all 4 extremities, CN2-12 intact. Strength 5/5 in all 4 extremities. No nystagmus. Psych: calm, cooperative, AAO x 3 LABORATORY DATA: Please see below. IMAGING: XR Tibia Fibula (10/20/20): FINDINGS: The osseous structures and joint spaces are intact and normal. There is no evidence for acute fracture or dislocation. Surrounding soft tissues are unremarkable. No subcutaneous emphysema or radiodense foreign body. IMPRESSION: No acute fracture or dislocation. PROGNOSIS: good ACTIVITY: [As tolerated]. DIET: regular DISCHARGE PLAN: DC home with PCP follow up in 3-5 days. To complete additional 7 days of PO keflex 500 mg PO QID, for a total of 10 days of antimicrobial therapy (s/p 3 days of cefepime, and 2 days of vancomycin). Started patient on amlodipine 5 mg daily for HTN, as well as pantoprazole for acid reflux. DISPOSITION: DC home. DISCHARGE INSTRUCTIONS: . Please follow-up with your primary care doctor within 3-5 days . Please taking medications as prescribed. Please take antibiotic Keflex 500 mg QID x 7 days. . If you develop bleeding, chest pain, shortness of breath, seizures, nausea, fevers, or otherwise worsening of your symptoms, please call 911 or return to the nearest emergency room ITEMS TO FOLLOWUP ON ON OUTPATIENT: Final blood cultures DISCHARGE CONDITION: [Stable]. TIME SPENT ON DISCHARGE: 35 minutes Vital Signs/I&Os Vital Signs Date Time Temp Pulse Resp B/P (MAP) Pulse Ox O2 Delivery O2 Flow Rate FiO2 10/20/20 06:11 98.7 72 20 146/81 (102) 97 Room Air 10/17/20 04:23 2.0 I&O- Last 24 Hours up to 6 AM 10/20/20 05:59 Intake Total 2050 ml Output Total 0 ml Balance 2050 ml Laboratory Data Labs 24H Laboratory Tests 2 10/20/20 05:46: Anion Gap 6L, Glomerular Filtration Rate > 60.0, Calcium Level 8.0L CBC/BMP Laboratory Tests 10/20/20 05:46 Microbiology Microbiology 10/17/20 Wound Culture - Final, Complete Streptococcus Pyogenes Grp A 10/16/20 Blood Culture - Preliminary, Resulted No Growth after 72 hours. All specime... 10/16/20 Blood Culture - Preliminary, Resulted No Growth after 72 hours. All specime... Discharge Medications Scheduled Amlodipine Besylate (Amlodipine Besylate) 5 Mg Tablet, 5 MG PO DAILY Cephalexin (Cephalexin) 500 Mg Tablet, 500 MG PO QID Escitalopram Oxalate (Lexapro) 10 Mg Tablet, 10 MG PO DAILY, (Reported) Magnesium Oxide (Magnesium Oxide) 400 Mg Tablet, 400 MG PO BID for constipation Pantoprazole Sodium (Pantoprazole Sodium) 40 Mg Tablet.dr, 1 TAB PO DAILY Trazodone HCl (Trazodone HCl) 100 Mg Tablet, 100 MG PO QHS, (Reported) Scheduled PRN Acetaminophen (Acetaminophen) 325 Mg Tablet, 650 MG PO Q4H PRN for MILD PAIN or TEMP > 101 Hydroxyzine HCl (Hydroxyzine HCl) 50 Mg Tablet, 50 MG PO BID PRN for ANXIETY, (Reported) Allergies Coded Allergies: Sulfa (Sulfonamide Antibiotics) (Verified Allergy, Intermediate, RASH, 08/01/20) clindamycin (Verified Allergy, Intermediate, RASH, 08/01/20) YESSENIA WATERS MD Oct 20, 2020 13:03
[2020-10-20 13:07] LABS: MAGNESIUM LEVEL 1.7 MG/DL (1.8-2.4)
[2020-10-20] MEDS ORDERED: MAGN400T3 PO (13:48)
[2020-10-20 14:00] VITALS: BP 148/100
[2020-10-20] MEDS ORDERED: MAG SULF 1GM/100ML (MAG RUN) 1 GM in IV 1 EA IV ONE (14:00)
[2020-10-20] MEDS: ONDANSETRON 4MG/2ML VIAL IV PRN (14:53)
[2020-10-20 15:46] VITALS: BP 150/90
[2020-10-20] MEDS ORDERED: PANT40TA29 PO (15:46)
[2020-10-20] MEDS ORDERED: AMLO1TAB24 PO (15:46)
[2020-10-20] MEDS ORDERED: GI COCKTAIL 50ML BTL(HYOSCYAMINE/MAALOX/LIDOCAINE VISCOUS)(1:3:1) PO ONE (17:00)
--- NOTE | 2020-10-21 11:54 | ECGEPIP ---
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 Electronically Signed on 10-21-2020 11:54:42 EDT by Jewel Koehler
== END 2020-10-20 17:05 | disposition home or self-care (01) | DRG 383 ==
LOC: M ED 18:35 → M ED INP 21:25 → ENRESERV 22:38 → M MS5PR 23:40
PROVIDERS: ADMIT Internal Medicine; ATTEND Family Medicine
DX: L03.115 Cellulitis of right lower limb (principal); S81.811A Laceration without foreign body, right lower leg, initial encounter; I10 Essential (primary) hypertension; F41.9 Anxiety disorder, unspecified; R73.9 Hyperglycemia, unspecified; K21.9 Gastro-esophageal reflux disease without esophagitis; F32.9 Major depressive disorder, single episode, unspecified; W22.03XA Walked into furniture, initial encounter; Y92.009 Unspecified place in unspecified non-institutional (private) residence as the place of occurrence of the external cause; Z79.899 Other long term (current) drug therapy; Z88.2 Allergy status to sulfonamides; Z88.1 Allergy status to other antibiotic agents

== ENCOUNTER 2020-11-25 10:33 | Inpatient (IN) | payer OTHER ==
[~2020-11-25] VITALS: Ht 165.1 cm; Wt 53.7 kg
[2020-11-25] MEDS: amLODIPine 5 MG TAB PO SCH (09:00)
[2020-11-25] MEDS: ESCITALOPRAM OXALATE 10 MG TAB (LEXAPRO) PO SCH (09:00)
[~2020-11-25 10:33] MED LIST changes: +ACET1TAB55 PO; +AMLO1TAB24 PO; +ASPI-264 PO; +CEPH500T PO; +MAGN400T3 PO; +PANT40TA29 PO
[2020-11-25 13:39] LABS: BASO # 0.1 10^3/uL (0.0-0.2); BASO % 0.6 % (0.0-1.0); EOS # 0.1 10^3/uL (0.0-0.5); EOS % 0.9 % (0.0-3.0); HEMATOCRIT 40.5 % (36.0-47.0); HEMOGLOBIN 13.3 g/dl (12.0-15.5); LYMPH # 1.9 10^3/uL (1.5-5.0); LYMPH % 17.4 % (24.0-44.0); MEAN CORPUSCULAR HEMOGLOBIN 31.5 pg (27.0-33.0); MEAN CORPUSCULAR HGB CONC 32.8 g/dl (32.0-36.5); MONO # 1.1 10^3/uL (0.0-0.8); MONO % 10.3 % (2.0-8.0); NEUTROPHILS # 7.6 10^3/uL (1.5-8.5); NEUTROPHILS % 70.5 % (36.0-66.0); PLATELET COUNT, AUTOMATED 357 10^3/uL (150-450); RED BLOOD COUNT 4.22 10^6/uL (4.00-5.40); WHITE BLOOD COUNT 10.8 10^3/uL (4.0-10.0)
[2020-11-25 13:58] LABS: BLOOD UREA NITROGEN 7 MG/DL (7-18); CALCIUM LEVEL 8.4 MG/DL (8.5-10.1); CARBON DIOXIDE LEVEL 29 MEQ/L (21-32); CHLORIDE LEVEL 107 MEQ/L (98-107); GLOMERULAR FILTRATION RATE > 60.0 (>51); GLUCOSE, FASTING 84 MG/DL (70-100); POTASSIUM SERUM 3.5 MEQ/L (3.5-5.1); SODIUM LEVEL 138 MEQ/L (136-145)
[2020-11-25 14:02] LABS: ALBUMIN 3.2 GM/DL (3.2-5.2); ALT/SGPT 197 U/L (12-78); BILIRUBIN,DIRECT 0.2 MG/DL (0.0-0.2); BILIRUBIN,TOTAL 0.4 MG/DL (0.2-1.0); C REACTIVE PROTEIN QUANTITATIV 2.96 MG/DL (0.00-0.30); LIPASE 117 U/L (73-393); TOTAL PROTEIN 7.3 GM/DL (6.4-8.2)
[2020-11-25] MEDS ORDERED: ACETAMINOPHEN 325 MG TAB PO ONE (14:10)
[2020-11-25 14:16] LABS: HCG, SERUM QUALITATIVE NEGATIVE (NEGATIVE)
[2020-11-25] MEDS ORDERED: hydrOXYzine 25 MG TAB PO ONE (14:20)
--- NOTE | 2020-11-25 16:07 | REP ---
INDICATION: cellulitis/meth injection. COMPARISON: None. TECHNIQUE: Multiple ultrasonographic images are performed in the proximal lateral left forearm in area of swelling and redness. FINDINGS: There is soft tissue edema of the superficial overlying soft tissues. Underlying this area there is a there is an irregular fluid collection measuring 2.2 x 0.8 x 1.2 cm within the muscle. The muscle is hyperechoic compared to the right forearm. IMPRESSION: Findings are compatible with abscess versus hematoma with edema in the overlying soft tissues. <Electronically signed by Sergey Benites > 11/25/20 [id number]
[2020-11-25] MEDS ORDERED: VANCOMYCIN HCL 1,000 MG, VIAL MATE ADAPTER 1 EACH in NS 250 ML IV ONE (16:20)
[2020-11-25] MEDS ORDERED: MAGN400T3 PO (16:41)
[2020-11-25] MEDS ORDERED: ACET1TAB55 PO (16:41)
[2020-11-25] MEDS ORDERED: AMLO1TAB24 PO (16:41)
[2020-11-25] MEDS ORDERED: HOME MED LIST COMPLETE! XX SCH (16:45)
[2020-11-25] MEDS ORDERED: LORazepam 2 MG/ML VIAL IV PRN (17:50)
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
[2020-11-25 18:01] LABS: RSV AMPLIFICATION NEGATIVE (NEGATIVE)
[2020-11-25] MEDS: AMPICILLIN SOD/SULBACTAM SOD 3 GM in D5W MINI-BAG PLUS 100 ML IV SCH (18:31)
[2020-11-25] MEDS: traZODone 100 MG TAB PO SCH (20:29)
[2020-11-25] MEDS: VANCOMYCIN HCL 750 MG, VIAL MATE ADAPTER 1 EACH in NS 250 ML IV SCH (20:29)
[2020-11-25 22:34] VITALS: BP 140/68
[2020-11-26] VITALS (8 sets, daily range): BP systolic 126–156; BP diastolic 68–91
[2020-11-26] MEDS: HEPARIN SOD (PORCINE) 5000UNITS/ML 1ML VIAL/SYRINGE SQ SCH ×4 (00:48→20:28)
[2020-11-26] MEDS: AMPICILLIN SOD/SULBACTAM SOD 3 GM in D5W MINI-BAG PLUS 100 ML IV SCH ×4 (00:48→19:34)
[2020-11-26] MEDS: VANCOMYCIN HCL 750 MG, VIAL MATE ADAPTER 1 EACH in NS 250 ML IV SCH ×3 (04:45→20:26)
[2020-11-26 06:35] LABS: HEMATOCRIT 37.1 % (36.0-47.0); HEMOGLOBIN 12.4 g/dl (12.0-15.5); MEAN CORPUSCULAR HGB CONC 33.4 g/dl (32.0-36.5); MEAN CORPUSCULAR VOLUME 95.9 fl (80.0-96.0); PLATELET COUNT, AUTOMATED 339 10^3/uL (150-450); RED BLOOD COUNT 3.87 10^6/uL (4.00-5.40); WHITE BLOOD COUNT 8.3 10^3/uL (4.0-10.0)
[2020-11-26 07:05] LABS: ALBUMIN 2.7 GM/DL (3.2-5.2); ALT/SGPT 179 U/L (12-78); BILIRUBIN,TOTAL 0.3 MG/DL (0.2-1.0); BLOOD UREA NITROGEN 9 MG/DL (7-18); CALCIUM LEVEL 8.6 MG/DL (8.5-10.1); CARBON DIOXIDE LEVEL 28 MEQ/L (21-32); CHLORIDE LEVEL 106 MEQ/L (98-107); CREATININE FOR GFR 0.48 MG/DL (0.55-1.30); GLOMERULAR FILTRATION RATE > 60.0 (>51); GLUCOSE, FASTING 119 MG/DL (70-100); MAGNESIUM LEVEL 1.7 MG/DL (1.8-2.4); PHOSPHORUS LEVEL 3.2 MG/DL (2.5-4.9); POTASSIUM SERUM 3.7 MEQ/L (3.5-5.1); SODIUM LEVEL 140 MEQ/L (136-145); TOTAL PROTEIN 6.5 GM/DL (6.4-8.2)
[2020-11-26] MEDS: hydrOXYzine 50 MG TAB PO PRN ×2 (09:20→17:30)
[2020-11-26] MEDS: amLODIPine 5 MG TAB PO SCH (09:21)
[2020-11-26] MEDS: ESCITALOPRAM OXALATE 10 MG TAB (LEXAPRO) PO SCH (09:21)
[2020-11-26] MEDS ORDERED: LORazepam 2 MG TAB PO PRN (10:40)
[2020-11-26] MEDS: NICOTINE 14 MG/24 HR TRANSDERMAL TD SCH (11:44)
[2020-11-26] MEDS: MULTIVITAMINS/MINERALS THERAP 1 TAB PO SCH (11:50)
[2020-11-26] MEDS: FOLIC ACID 1 MG TAB PO SCH (11:50)
[2020-11-26] MEDS: THIAMINE 100 MG TAB PO SCH ×2 (11:50→20:26)
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
[2020-11-26] MEDS ORDERED: MAGNESIUM OXIDE 400MG TAB (MAG-OX) PO ONE (13:55)
[2020-11-26] MEDS ORDERED: LIDOCAINE W/EPINEPHRINE 1% 20ML VIAL SC ONE (17:20)
[2020-11-26] MEDS: traZODone 100 MG TAB PO SCH (20:26)
[2020-11-27] MEDS: AMPICILLIN SOD/SULBACTAM SOD 3 GM in D5W MINI-BAG PLUS 100 ML IV SCH ×2 (00:44→05:26)
[2020-11-27 02:00] VITALS: BP 132/86
[2020-11-27] MEDS: VANCOMYCIN HCL 750 MG, VIAL MATE ADAPTER 1 EACH in NS 250 ML IV SCH (03:53)
[2020-11-27] MEDS: HEPARIN SOD (PORCINE) 5000UNITS/ML 1ML VIAL/SYRINGE SQ SCH (05:27)
[2020-11-27 06:00] VITALS: BP 130/89
[2020-11-27 06:56] LABS: BLOOD UREA NITROGEN 9 MG/DL (7-18); CALCIUM LEVEL 8.7 MG/DL (8.5-10.1); CARBON DIOXIDE LEVEL 29 MEQ/L (21-32); CHLORIDE LEVEL 106 MEQ/L (98-107); CREATININE FOR GFR 0.46 MG/DL (0.55-1.30); GLOMERULAR FILTRATION RATE > 60.0 (>51); GLUCOSE, FASTING 149 MG/DL (70-100); MAGNESIUM LEVEL 1.9 MG/DL (1.8-2.4); PHOSPHORUS LEVEL 3.4 MG/DL (2.5-4.9); POTASSIUM SERUM 3.9 MEQ/L (3.5-5.1); SODIUM LEVEL 141 MEQ/L (136-145)
[2020-11-27] MEDS ORDERED: LIDOCAINE W/EPINEPHRINE 1% 20ML VIAL SC ONE (08:00)
[2020-11-27 08:23] VITALS: BP 131/91
[2020-11-27] MEDS: amLODIPine 5 MG TAB PO SCH (08:23)
[2020-11-27] MEDS: NICOTINE 14 MG/24 HR TRANSDERMAL TD SCH (08:23)
[2020-11-27] MEDS: ESCITALOPRAM OXALATE 10 MG TAB (LEXAPRO) PO SCH (08:23)
[2020-11-27] MEDS: THIAMINE 100 MG TAB PO SCH (08:23)
[2020-11-27] MEDS: MULTIVITAMINS/MINERALS THERAP 1 TAB PO SCH (08:23)
[2020-11-27] MEDS: FOLIC ACID 1 MG TAB PO SCH (08:24)
[2020-11-27] MEDS ORDERED: AUGMENTIN 875 MG TAB PO SCH (09:00)
[2020-11-27] MEDS ORDERED: DOXYCYCLINE HYCLATE 100MG TABLET PO SCH (09:00)
--- NOTE | 2020-11-27 09:08 | CR.PDOC ---
General Surgery Consultation Date of Consultation 11/27/20 History and Physical CONSULT REPORT FOR: Dr. Maher (hospitalist service) REASON FOR CONSULTATION: left arm swelling HISTORY OF PRESENT ILLNESS: I was asked to evaluate Ms. Douglas left arm for possibility of an abscess. She is currently admitted to the hospital service for cellulitis of that arm secondary to IV drug use. Patient reports about a 4-day history of swelling, in ability to straighten her elbow, pain PAST MEDICAL HISTORY: 1. . PAST SURGICAL HISTORY: INCLUDES: 1. . PREVIOUS ANESTHESIA REACTIONS: ALLERGIES: Please see below. FAMILY HISTORY: . HOME MEDICATIONS: Please see below. REVIEW OF SYSTEMS: GENERAL: [Denies chills, reports weight gain, reports feeling febrile yesterday]. HEENT: [Denies blurred vision and double vision. Denies ear symptoms. Denies hoarseness]. NECK: Denies any neck pain]. CARDIOVASCULAR: [Denies chest pain and palpitations]. MUSCULOSKELETAL: [Denies arthralgias, back pain and thrombophlebitis]. SKIN: [Denies rash]. NEUROLOGIC: [Denies headache, stroke and transient ischemic attack]. PSYCHIATRIC: [Denies anxiety and depression]. ENDOCRINE: [Denies thyroid disease]. HEMATOLOGY/ONCOLOGY: [Denies bleeding or clotting disorder]. HEART: [Denies any chest pains, palpitations, paroxysmal dyspnea, orthopnea]. PULMONARY: [Denies chronic cough, dyspnea and wheezing]. GASTROINTESTINAL: [Denies rectal bleeding, family history of colon cancer, constipation, diarrhea, dysphagia, heartburn and jaundice]. GENITOURINARY: [Denies dysuria, frequency, hematuria and nocturia]. ENDOCRINE: [Denies polydipsia, polyphagia, polyuria, heat or cold intolerance]. INFECTIOUS: [Denies any recent upper respiratory tract infection, UTI, need for use of antibiotics]. NUTRITION: [Reports good appetite]. PHYSICAL EXAMINATION: VITALS SIGNS: Please see below. GENERAL APPEARANCE:[Patient seen, laying in bed, awake, alert, and oriented. Comfortable, in no acute distress]. SKIN: [Warm and moist]. HEENT: [Normocephalic, atraumatic. [place]ie palpebral conjunctiva, anicteric sclerae. Lips and mucosa appear moist]. NECK: [Supple, no thyromegaly. No obvious jugular venous distention]. LUNGS: [Clear to auscultation bilaterally. No wheezing appreciated]. HEART: [No chest wall abnormalities. Regular rate and rhythm with no murmurs appreciated]. ABDOMEN: Abdomen is , soft, . [No hepatosplenomegaly. No umbilical or groin herniations, nondistended. No noticeable rebound or guarding. No grimacing with palpation. No rebound tenderness. No masses appreciated]. EXTREMITIES: [Extremities have no deformities. No edema identified] ANCILLARIES: . LABORATORY DATA: Please see below. IMAGING STUDIES: . IMPRESSION AND PLAN: . Vital Signs Vital Signs Date Time Temp Pulse Resp B/P (MAP) Pulse Ox O2 Delivery O2 Flow Rate FiO2 11/27/20 02:00 97.5 86 22 132/86 (101) 97 Room Air I&Os I&O- Last 24 Hours up to 6 AM 11/27/20 06:00 Intake Total 1395 ml Output Total 0 ml Balance 1395 ml Laboratory Data Labs 24H Laboratory Tests 2 11/26/20 06:13: Nucleated Red Blood Cells % (auto) 0.0, Anion Gap 6L, Glomerular Filtration Rate > 60.0, Calcium Level 8.6, Phosphorus Level 3.2, Magnesium Level 1.7L, Total Bilirubin 0.3, Aspartate Amino Transf (AST/SGOT) 148H, Alanine Aminotransferase (ALT/SGPT) 179H, Alkaline Phosphatase 74, Total Protein 6.5, Albumin 2.7L, Albumin/Globulin Ratio 0.7L 11/26/20 10:54: Vancomycin Level Trough 9.2L 11/26/20 12:29: Methicillin-Resist S.aureus DNA PCR NOT DETECTED CBC/BMP Laboratory Tests 11/26/20 06:13 Microbiology Microbiology 11/25/20 Blood Culture - Preliminary, Resulted No growth after 24 hours . All specim... 11/25/20 Blood Culture - Preliminary, Resulted No growth after 24 hours . All specim... Home Medications Scheduled Amlodipine Besylate (Amlodipine Besylate) 5 Mg Tablet, 5 MG PO DAILY, (Reported) Escitalopram Oxalate (Lexapro) 10 Mg Tablet, 10 MG PO DAILY, (Reported) Magnesium Oxide (Magnesium Oxide) 400 Mg Tablet, 400 MG PO BID, (Reported) Trazodone HCl (Trazodone HCl) 100 Mg Tablet, 100 MG PO QHS, (Reported) Scheduled PRN Acetaminophen (Acetaminophen) 325 Mg Tablet, 650 MG PO Q4H PRN for MILD PAIN (PS 1-4), (Reported) Hydroxyzine HCl (Hydroxyzine HCl) 50 Mg Tablet, 50 MG PO BID PRN for ANXIETY, (Reported) Allergies Coded Allergies: Sulfa (Sulfonamide Antibiotics) (Verified Allergy, Intermediate, RASH, 08/01/20) clindamycin (Verified Allergy, Intermediate, RASH, 08/01/20) ELOY LONDON MD Nov 27, 2020 05:37
[2020-11-27] MEDS ORDERED: DOXY-350 PO (09:28)
[2020-11-27] MEDS ORDERED: AUGM875T28 PO (09:28)
--- NOTE | 2020-11-27 12:56 | ROOPDOC ---
[facility] Report Of Operation Report of Operation DATE OF PROCEDURE: 11/27/20 PREPROCEDURE DIAGNOSES: left arm cellulitis possible abscess vs phlegmon. POSTPROCEDURE DIAGNOSES: left arm cellulitis, phlegmon, no abscess. PROCEDURE PERFORMED: incision and drainage of arm swelling/phlegmon. SURGEON: Oscar Talley MD ANESTHESIA: Local anesthesia using 1% lidocaine with epinephrine. ESTIMATED BLOOD LOSS: Minimal COMPLICATIONS: None. REMARKS: 50-year-old female admitting to IV drug use admitted under the hospitalist service for left arm swelling and cellulitis with a distinct area of subcutaneous induration and not clear whether there is an abscess or just phlegmon or hematoma. DESCRIPTION OF PROCEDURE: Consent obtained from the patient. She remained on her bed and procedure was done at the bedside. We paused for a surgical timeout using both pre-incision safety checklist to verify correct patient, procedure site and additional clinical information prior to beginning the procedure She was positioned on the bed, her left arm/antecubital area was prepped and draped in the usual fashion using Betadine. Initially tried to do a diagnostic aspiration with an 18-gauge needle attached to a 10 cc syringe but we only had blunt needles on the floor and this was not able to puncture the skin. Thus we decided to do a formal incision over the arm soft tissue swelling. This was infiltrated at the skin and subcutaneous tissue with 1% lidocaine containing epinephrine. A small less than 2 cm incision was then created with a 15 blade scalpel and deepened through to the subcutaneous tissue. The underlying soft tissue swelling was then probed with hemostat and no purulent drainage was encountered. Hemostasis performed with finger pressure and a 4 x 4 gauze was then used to cover the incision. Patient tolerated procedure well. OSCAR TALLEY MD Nov 27, 2020 12:56
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
== END 2020-11-27 13:23 | disposition home or self-care (01) | DRG 383 ==
LOC: M ED 10:33 → M ED INP 17:24 → ENRESERV 21:44 → M MSPAV 22:30
PROVIDERS: ADMIT Internal Medicine; ATTEND Internal Medicine
PROC: 0JJV0ZZ Inspection of Upper Extremity Subcutaneous Tissue and Fascia, Open Approach (ICD-10-PCS; principal; 2020-11-27)
DX: L03.114 Cellulitis of left upper limb (principal); I10 Essential (primary) hypertension; F32.9 Major depressive disorder, single episode, unspecified; F43.10 Post-traumatic stress disorder, unspecified; F17.210 Nicotine dependence, cigarettes, uncomplicated; F12.10 Cannabis abuse, uncomplicated; F15.10 Other stimulant abuse, uncomplicated; R74.01 Elevation of levels of liver transaminase levels; B19.20 Unspecified viral hepatitis C without hepatic coma; F10.10 Alcohol abuse, uncomplicated; Z79.899 Other long term (current) drug therapy; Z88.1 Allergy status to other antibiotic agents; Z88.2 Allergy status to sulfonamides

== ENCOUNTER → 2021-04-29 | Outpatient (CLI) | payer OTHER ==
[~2021-04-29] MED LIST changes: +AUGM875T28 PO; +DOXY-350 PO; -MAGN400T3 PO; +MAGN400T33 PO
[2021-04-29 18:36] LABS: HEPATITIS B SURFACE ANTIBODY NEGATIVE (POSITIVE)
== END ==
LOC: M PLALAB 14:41
PROVIDERS: ATTEND Internal Medicine Infectious Disease
DX: B18.2 Chronic viral hepatitis C (principal)

== ENCOUNTER 2021-08-19 11:57 | Inpatient (IN) | payer MEDICAID, OTHER ==
[~2021-08-19] VITALS: Ht 165.1 cm; Wt 63.6 kg
[2021-08-19] MEDS ORDERED: LORazepam 0.5 MG TAB PO ONE (12:50)
[2021-08-19 13:50] LABS: HEMATOCRIT 43.3 % (36.0-47.0); HEMOGLOBIN 14.2 g/dl (12.0-15.5); MEAN CORPUSCULAR HEMOGLOBIN 30.2 pg (27.0-33.0); MEAN CORPUSCULAR HGB CONC 32.8 g/dl (32.0-36.5); MEAN CORPUSCULAR VOLUME 92.1 fl (80.0-96.0); PLATELET COUNT, AUTOMATED 296 10^3/uL (150-450); WHITE BLOOD COUNT 9.7 10^3/uL (4.0-10.0)
[2021-08-19] MEDS ORDERED: LORazepam 2 MG/ML VIAL IM STA (14:10)
[2021-08-19 14:12] LABS: AMPHETAMINES LEVEL URINE POSITIVE (NEGATIVE); BARBITURATES URINE NEGATIVE (NEGATIVE); BENZODIAZEPINES URINE NEGATIVE (NEGATIVE); CANNABINOIDS URINE NEGATIVE (NEGATIVE); COCAINE METABOLITE URINE NEGATIVE (NEGATIVE); METHADONE URINE NEGATIVE (NEGATIVE); OPIATES URINE NEGATIVE (NEGATIVE); PHENCYCLIDINE URINE NEGATIVE (NEGATIVE)
[2021-08-19 14:23] LABS: RSV AMPLIFICATION NEGATIVE (NEGATIVE)
[2021-08-19] MEDS ORDERED: LORazepam 2 MG/ML VIAL As Ordered ONE (14:23)
[2021-08-19 14:25] LABS: ACETAMINOPHEN LEVEL < 2.0 UG/ML (10.0-30.0); ALBUMIN 4.6 GM/DL (3.2-5.2); ALT/SGPT 40 U/L (12-78); BILIRUBIN,DIRECT 0.2 MG/DL (0.0-0.2); BILIRUBIN,TOTAL 0.5 MG/DL (0.2-1.0); BLOOD UREA NITROGEN 16 MG/DL (7-18); CALCIUM LEVEL 9.9 MG/DL (8.5-10.1); CARBON DIOXIDE LEVEL 28 MEQ/L (21-32); CHLORIDE LEVEL 102 MEQ/L (98-107); ETHYL ALCOHOL (ETHANOL) 0.195 % (0.000-0.010); GLOMERULAR FILTRATION RATE > 60.0 (>51); GLUCOSE, FASTING 117 MG/DL (70-100); POTASSIUM SERUM 4.4 MEQ/L (3.5-5.1); SALICYLATE LEVEL 4.6 MG/DL (5.0-30.0); SODIUM LEVEL 135 MEQ/L (136-145); THYROID STIMULATING HORMONE 0.559 uIU/ML (0.358-3.740); TOTAL PROTEIN 8.6 GM/DL (6.4-8.2)
[2021-08-19] MEDS ORDERED: ERGO500029 PO (19:22)
[2021-08-19] MEDS ORDERED: SOFO1TAB PO (19:22)
[2021-08-19] MEDS ORDERED: OMEP-173 PO (19:22)
[2021-08-19] MEDS ORDERED: COMMENTS (20:37)
[2021-08-19] MEDS ORDERED: HOME MED LIST COMPLETE! XX SCH (20:40)
[2021-08-20] VITALS (7 sets, daily range): BP systolic 104–124; BP diastolic 62–88
[2021-08-20] MEDS ORDERED: LORazepam 2 MG TAB PO PRN (00:05)
[2021-08-20] MEDS ORDERED: MOM 30ML SUSPENSION UDC PO PRN (00:05)
[2021-08-20] MEDS: THIAMINE 100 MG TAB PO SCH ×3 (01:59→21:27)
[2021-08-20] MEDS: OLANZapine 5 MG TAB PO SCH ×3 (01:59→21:27)
[2021-08-20] MEDS: traZODone 100 MG TAB PO SCH ×2 (01:59→21:27)
[2021-08-20] MEDS: ACETAMINOPHEN TAB 650MG DOSE (2X325MG) PO PRN (02:06)
[2021-08-20] MEDS ORDERED: ESCITALOPRAM OXALATE 10 MG TAB (LEXAPRO) PO ONE (09:00)
[2021-08-20] MEDS ORDERED: OMEPRAZOLE 20MG CAP PO ONE (09:00)
[2021-08-20] MEDS ORDERED: MAGNESIUM OXIDE 400MG TAB (MAG-OX) PO ONE (09:00)
[2021-08-20] MEDS ORDERED: amLODIPine 5 MG TAB PO ONE (09:00)
[2021-08-20] MEDS: MULTIVITAMINS/MINERALS THERAP 1 TAB PO SCH (09:46)
[2021-08-20] MEDS: FOLIC ACID 1 MG TAB PO SCH (09:46)
[2021-08-20] MEDS: NICOTINE 21MG/24HR 1 EA TRANSDERMAL TD SCH (09:47)
[2021-08-20] MEDS ORDERED: traZODone 100 MG TAB PO ONE (21:00)
[2021-08-21 05:50] VITALS: BP 114/75
[2021-08-21] MEDS: NICOTINE 21MG/24HR 1 EA TRANSDERMAL TD SCH (08:11)
[2021-08-21] MEDS: FOLIC ACID 1 MG TAB PO SCH (08:11)
[2021-08-21] MEDS: MULTIVITAMINS/MINERALS THERAP 1 TAB PO SCH (08:12)
[2021-08-21] MEDS: OLANZapine 5 MG TAB PO SCH ×2 (08:12→20:55)
[2021-08-21] MEDS: THIAMINE 100 MG TAB PO SCH ×2 (08:12→20:55)
[2021-08-21] MEDS: ESCITALOPRAM OXALATE 10 MG TAB (LEXAPRO) PO SCH (10:30)
[2021-08-21 13:45] VITALS: BP 155/97
[2021-08-21 13:52] VITALS: BP 155/97
[2021-08-21 16:32] VITALS: BP 155/97
[2021-08-21] MEDS: OLANZapine ORAL DISINTEGRATING TAB 5MG PO PRN (17:23)
[2021-08-21] MEDS: traZODone 100 MG TAB PO SCH (20:55)
[2021-08-21 21:38] VITALS: BP 120/82
[2021-08-22 06:21] VITALS: BP 137/79
[2021-08-22 06:22] VITALS: BP 137/79
[2021-08-22] MEDS: THIAMINE 100 MG TAB PO SCH (09:32)
[2021-08-22] MEDS: OLANZapine 5 MG TAB PO SCH ×2 (09:32→21:22)
[2021-08-22] MEDS: ESCITALOPRAM OXALATE 10 MG TAB (LEXAPRO) PO SCH (09:32)
[2021-08-22] MEDS: NICOTINE 21MG/24HR 1 EA TRANSDERMAL TD SCH (09:32)
[2021-08-22] MEDS: NALTREXONE 50 MG TAB PO SCH (11:01)
[2021-08-22] MEDS: OLANZapine ORAL DISINTEGRATING TAB 5MG PO PRN (12:52)
[2021-08-22 18:09] VITALS: BP 136/88
[2021-08-22] MEDS: traZODone 100 MG TAB PO SCH (21:22)
[2021-08-23] MEDS: NALTREXONE 50 MG TAB PO SCH (08:07)
[2021-08-23] MEDS: ESCITALOPRAM OXALATE 10 MG TAB (LEXAPRO) PO SCH (08:07)
[2021-08-23] MEDS: OLANZapine 5 MG TAB PO SCH ×2 (08:07→20:36)
[2021-08-23] MEDS: NICOTINE 21MG/24HR 1 EA TRANSDERMAL TD SCH (08:07)
[2021-08-23] MEDS: OLANZapine ORAL DISINTEGRATING TAB 5MG PO PRN (17:33)
[2021-08-23 18:28] VITALS: BP 126/73
[2021-08-23] MEDS: traZODone 100 MG TAB PO SCH (20:36)
[2021-08-23] MEDS: HYDROCORTISONE 1% CREAM 30 GM TOP SCH (20:37)
[2021-08-24 07:05] VITALS: BP 136/78
[2021-08-24] MEDS: NICOTINE 21MG/24HR 1 EA TRANSDERMAL TD SCH (09:18)
[2021-08-24] MEDS: OLANZapine 5 MG TAB PO SCH ×2 (09:18→21:48)
[2021-08-24] MEDS: NALTREXONE 50 MG TAB PO SCH (09:18)
[2021-08-24] MEDS: HYDROCORTISONE 1% CREAM 30 GM TOP SCH ×2 (09:19→21:48)
[2021-08-24] MEDS: ESCITALOPRAM OXALATE 10 MG TAB (LEXAPRO) PO SCH (09:19)
[2021-08-24] MEDS: OLANZapine ORAL DISINTEGRATING TAB 5MG PO PRN (16:52)
[2021-08-24 18:06] VITALS: BP 120/74
[2021-08-24] MEDS: traZODone 50 MG TAB PO SCH (21:48)
[2021-08-24] MEDS: valACYclovir HCL 500 MG TAB PO SCH (21:48)
[2021-08-25 06:45] VITALS: BP 134/96
[2021-08-25] MEDS: HYDROCORTISONE 1% CREAM 30 GM TOP SCH ×2 (09:00→21:30)
[2021-08-25] MEDS: valACYclovir HCL 500 MG TAB PO SCH ×2 (09:14→21:29)
[2021-08-25] MEDS: NICOTINE 21MG/24HR 1 EA TRANSDERMAL TD SCH (09:14)
[2021-08-25] MEDS: ESCITALOPRAM OXALATE 10 MG TAB (LEXAPRO) PO SCH (09:14)
[2021-08-25] MEDS: ACETAMINOPHEN TAB 650MG DOSE (2X325MG) PO PRN (09:14)
[2021-08-25] MEDS: OLANZapine 5 MG TAB PO SCH ×2 (09:14→21:29)
[2021-08-25] MEDS: NALTREXONE 50 MG TAB PO SCH (09:14)
[2021-08-25] MEDS: OLANZapine ORAL DISINTEGRATING TAB 5MG PO PRN (16:39)
[2021-08-25 18:10] VITALS: BP 130/82
[2021-08-25] MEDS: traZODone 50 MG TAB PO SCH (21:30)
[2021-08-26 06:50] VITALS: BP 116/73
[2021-08-26] MEDS: HYDROCORTISONE 1% CREAM 30 GM TOP SCH ×2 (09:00→20:55)
[2021-08-26] MEDS: ESCITALOPRAM OXALATE 10 MG TAB (LEXAPRO) PO SCH (09:39)
[2021-08-26] MEDS: valACYclovir HCL 500 MG TAB PO SCH ×2 (09:39→20:55)
[2021-08-26] MEDS: NALTREXONE 50 MG TAB PO SCH (09:39)
[2021-08-26] MEDS: NICOTINE 21MG/24HR 1 EA TRANSDERMAL TD SCH (09:39)
[2021-08-26] MEDS: OLANZapine 5 MG TAB PO SCH ×2 (09:39→20:55)
[2021-08-26] MEDS: ACETAMINOPHEN TAB 650MG DOSE (2X325MG) PO PRN ×2 (09:41→20:07)
[2021-08-26 17:30] VITALS: BP 103/74
[2021-08-26] MEDS: MAALOX 30 ML SUSP *UDC PO PRN (20:07)
[2021-08-26] MEDS: traZODone 50 MG TAB PO SCH (20:55)
[2021-08-27 06:12] VITALS: BP 143/80
[2021-08-27] MEDS: NICOTINE 21MG/24HR 1 EA TRANSDERMAL TD SCH (08:38)
[2021-08-27] MEDS: HYDROCORTISONE 1% CREAM 30 GM TOP SCH ×2 (08:40→20:19)
[2021-08-27] MEDS: OLANZapine 5 MG TAB PO SCH ×2 (08:41→20:19)
[2021-08-27] MEDS: valACYclovir HCL 500 MG TAB PO SCH ×2 (08:41→20:19)
[2021-08-27] MEDS: NALTREXONE 50 MG TAB PO SCH (08:41)
[2021-08-27] MEDS: ACETAMINOPHEN TAB 650MG DOSE (2X325MG) PO PRN (08:41)
[2021-08-27] MEDS: ESCITALOPRAM OXALATE 10 MG TAB (LEXAPRO) PO SCH (08:41)
[2021-08-27] MEDS: OLANZapine ORAL DISINTEGRATING TAB 5MG PO PRN (15:10)
[2021-08-27 17:09] VITALS: BP 112/72
[2021-08-27] MEDS: MAALOX 30 ML SUSP *UDC PO PRN (20:19)
[2021-08-27] MEDS: traZODone 50 MG TAB PO SCH (20:19)
[2021-08-28 06:24] VITALS: BP 117/63
[2021-08-28 08:17] VITALS: BP 117/63
[2021-08-28] MEDS: valACYclovir HCL 500 MG TAB PO SCH (08:25)
[2021-08-28] MEDS: ESCITALOPRAM OXALATE 10 MG TAB (LEXAPRO) PO SCH (08:25)
[2021-08-28] MEDS: NALTREXONE 50 MG TAB PO SCH (08:25)
[2021-08-28] MEDS: ACETAMINOPHEN TAB 650MG DOSE (2X325MG) PO PRN (08:26)
[2021-08-28] MEDS: OLANZapine 5 MG TAB PO SCH (08:26)
[2021-08-28] MEDS: NICOTINE 21MG/24HR 1 EA TRANSDERMAL TD SCH (08:28)
[2021-08-28] MEDS: HYDROCORTISONE 1% CREAM 30 GM TOP SCH (08:28)
[2021-08-28] MEDS ORDERED: NALT50TA4 PO (13:27)
[2021-08-28] MEDS ORDERED: VALA500T5 PO (13:27)
[2021-08-28] MEDS ORDERED: NICO21PAT TD (13:27)
[2021-08-28] MEDS ORDERED: OLAN1TAB16 PO (13:27)
[2021-08-28] MEDS ORDERED: TRAZ-252 PO (13:27)
[2021-08-28] MEDS ORDERED: LEXA1TAB PO (13:27)
[2021-08-28] MEDS ORDERED: LEXA1TAB2 PO (13:27)
== END 2021-08-28 16:53 | disposition home or self-care (01) | DRG 751 ==
LOC: M ED 11:57 → M ED INP 08-20 00:02 → M PSY 08-20 01:30
PROVIDERS: ADMIT Student in an Organized Health Care Education/Training Program; ATTEND Student in an Organized Health Care Education/Training Program
DX: F33.1 Major depressive disorder, recurrent, moderate (principal); F43.10 Post-traumatic stress disorder, unspecified; F15.90 Other stimulant use, unspecified, uncomplicated; F10.10 Alcohol abuse, uncomplicated; F11.90 Opioid use, unspecified, uncomplicated; F41.1 Generalized anxiety disorder; B02.9 Zoster without complications; Z91.14 Patient's other noncompliance with medication regimen; Z91.410 Personal history of adult physical and sexual abuse; Z65.3 Problems related to other legal circumstances; Z79.899 Other long term (current) drug therapy; Z88.2 Allergy status to sulfonamides; Z88.8 Allergy status to other drugs, medicaments and biological substances; I10 Essential (primary) hypertension; K21.9 Gastro-esophageal reflux disease without esophagitis; B18.2 Chronic viral hepatitis C

== ENCOUNTER → 2021-09-09 | Outpatient (REF) ==
[~2021-09-09] MED LIST changes: +COMMENTS; +ERGO500029 PO; +LEXA1TAB2 PO; +NALT50TA4 PO; +OMEP-173 PO; +SOFO1TAB PO; +VALA500T5 PO
== END ==
LOC: M LAB 09:32